=== PATIENT | female | born 1940 | race Caucasian/White ===

== ENCOUNTER 2017-10-04 17:14 | Inpatient (IN) | payer MEDICARE ==
[~2017-10-04] VITALS: Ht 157.5 cm; Wt 46.3 kg
[~2017-10-04 17:14] MED LIST: ASPI-1471 PO; BUPR-136 PO; CALC-770 PO; CEPH-13 PO; ESCI20TA8 PO; FLUT1DIS27 IH; HYDR-385 PO; LISI-353 PO; METF-410 PO; METO100T20 PO; MULT-19 PO; TRAM-420 PO
--- NOTE | 2017-10-04 17:41 | ER Report ---
History and Physical Time Seen By MD: 17:27 Hx. of Stated Complaint: PT HAS HAD A COUGH RECENTLY, DAUGHTER THOUGHT SHE LOOKED WORSE TODAY. HPI/ROS CHIEF COMPLAINT: Cough HISTORY OF PRESENT ILLNESS: 77-year-old female patient presents to emergency room with complaint of a cough. Patient has been sick for the past week, started off last Friday with runny nose and slight cough. It has progressed throughout the week. She is having to turn her oxygen up. She normally is on 2 L but currently on 4 L to stay at 90%. Patient denies having any fevers, chills , nausea, vomiting or diarrhea. Patient has not had much of an appetite. She has not taken any medication for this. Patient is a smoker and smokes typically 1-2 cigarettes a day, however she's not been able have a cigarette for the last 2 days. REVIEW OF SYSTEMS: Respiratory: As noted above Cardiovascular: No chest pain, no palpitations. Gastrointestinal: No vomiting, no abdominal pain. Musculoskeletal: No back pain. Allergies: Coded Allergies: No Known Drug Allergies (Unverified , 10/04/17) Home Meds Active Scripts Potassium Chloride (KLOR-CON M10) 10 Meq Tab.er.prt, 10 MEQ PO BID, #30 TAB.SR Prov:[facility] 10/04/17 Azithromycin 250 Mg Tab (AZITHROMYCIN 250 MG TAB) 250 Mg Tablet, 1 TAB PO QDAY, #4 TAB Take 2 tabs today and then 1 tab a day until gone. Prov:IMER DUMONT [facility] 10/04/17 Reported Medications Lisinopril (LISINOPRIL) 20 Mg Tablet, 20 MG PO QDAY, TAB 10/04/17 Fluticasone/Salmeterol (ADVAIR 100-50 DISKUS) 1 Each Disk.w.dev, 1 EACH IH QHS 01/12/16 Metoprolol Succinate (METOPROLOL SUCCINATE) 100 Mg Tab.er.24h, 1 TAB PO QHS, TAB 01/12/16 Calcium Carb/Vit D3/Minerals (CALCIUM +D & MINERALS CHEW TAB) 1 Each Tab.chew, 1 EACH PO DAILY, TAB.CHEW 01/12/16 Multivits-Min/Iron/FA/Lutein (Centrum Silver Women Tablet) 1 Each Tablet, 1 TAB PO DAILY 01/12/16 Bupropion Hcl (BUPROPION HCL SR) 150 Mg Tablet.er, 100 MG PO DAILY 01/12/16 Escitalopram Oxalate (ESCITALOPRAM OXALATE) 20 Mg Tablet, 20 MG PO QDAY 01/12/16 Aspirin (ASPIR 81) 81 Mg Tablet.dr, 81 MG PO QDAY, TAB 01/12/16 Discontinued Reported Medications Hydrocodone Bit/Acetaminophen (HYDROCODON-ACETAMINOPHEN 5-325) 1 Each Tablet, 1- 2 EACH PO Q4-6H Y for PAIN, #30 TAB 01/17/16 Cephalexin (KEFLEX) 500 Mg Capsule, 500 MG PO Q6H, #12 CAP 01/17/16 Lisinopril/Hydrochlorothiazide (LISINOPRIL-HCTZ 20-12.5 MG TAB) 1 Each Tablet, 1 EACH PO DAILY 01/12/16 Metformin Hcl (METFORMIN HCL) 500 Mg Tablet, 1 TAB PO BID, TAB 01/12/16 Past Medical/Surgical History Patient has a past medical history of CVA, dementia, hypertension, emphysema, diarrhea, fractures, diabetes, anxiety. Patient denies any surgical history. Reviewed Nurses Notes: Yes Hx Smoking: Yes (6 cigs/day for 55 yrs) Smoking Status: Current: Every Day Smoker Hx Substance Use Disorder: No Hx Alcohol Use: No Constitutional Vital Sign - Last 24 Hours 10/04/17 10/04/17 10/04/17 10/04/17 17:23 17:44 18:19 18:24 Temp 97.8 Pulse 71 67 Resp 22 19 B/P (MAP) 147/72 143/67 (92) Pulse Ox 75 100 O2 Delivery Nasal Cannula O2 Flow Rate 5.0 10/04/17 10/04/17 10/04/17 10/04/17 18:30 18:39 18:54 19:00 Pulse 68 63 Resp 32 29 B/P (MAP) 158/85 (109) 143/71 (95) Pulse Ox 97 100 10/04/17 10/04/17 10/04/17 10/04/17 19:09 19:24 19:30 19:39 Pulse 66 65 62 Resp 31 32 28 B/P (MAP) 141/68 (92) Pulse Ox 93 91 91 10/04/17 10/04/17 10/04/17 10/04/17 19:54 20:00 20:09 20:14 Pulse 68 66 70 Resp 34 33 20 B/P (MAP) 140/71 (94) Pulse Ox 93 93 91 10/04/17 10/04/17 10/04/17 10/04/17 20:24 20:29 20:30 20:44 Pulse 70 67 Resp 30 32 B/P (MAP) 154/64 (94) 153/77 (102) Pulse Ox 96 96 10/04/17 10/04/17 20:59 21:00 Pulse 65 Resp 24 B/P (MAP) 144/72 (96) Pulse Ox 95 Intake and Output 10/04/17 10/04/17 10/05/17 15:00 23:00 07:00 Intake Total 350 ml Balance 350 ml Physical Exam General Appearance: The patient is alert, has no immediate need for airway protection and no current signs of toxicity. Respiratory: Chest is non tender, lungs are coarse to auscultation in bilateral lower lobes, expiratory rhonchi in bilateral upper lobes. Cardiac: regular rate and rhythm Gastrointestinal: Abdomen is soft and non tender, no masses, bowel sounds normal. Musculoskeletal: Neck: Neck is supple and non tender. Extremities have full range of motion and are non tender. Skin: No rashes or lesions. DIFFERENTIAL DIAGNOSIS: After history and physical exam differential diagnosis was considered for shortness of breath including but not limited to pulmonary infectious process, COPD, asthma, pulmonary embolus and congestive heart failure. Medical Decision Making Data Points Result Diagram: 10/04/17 1738 10/04/17 1738 Laboratory Hematology Test 10/04/17 17:31 10/04/17 17:38 10/04/17 21:31 Influenza Virus Type A (PCR) Negative (NEGATIVE) Influenza Virus Type B (PCR) Negative (NEGATIVE) Red Blood Count 3.57 M/uL (4.17-5.56) Mean Corpuscular Volume 91.1 fL (80.0-96.0) Mean Corpuscular Hemoglobin 30.7 pg (26.0-33.0) Mean Corpuscular Hemoglobin Concent 33.7 g/dL (32.0-36.0) Red Cell Distribution Width 14.1 % (11.5-14.5) Mean Platelet Volume 7.6 fL (7.2-11.1) Neutrophils (%) (Auto) 73.2 % (39.4-72.5) Lymphocytes (%) (Auto) 14.9 % (17.6-49.6) Monocytes (%) (Auto) 11.2 % (4.1-12.4) Eosinophils (%) (Auto) 0.3 % (0.4-6.7) Basophils (%) (Auto) 0.4 % (0.3-1.4) Nucleated RBC Relative Count (auto) 0.0 /100WBC Neutrophils # (Auto) 2.9 K/uL (2.0-7.4) Lymphocytes # (Auto) 0.6 K/uL (1.3-3.6) Monocytes # (Auto) 0.4 K/uL (0.3-1.0) Eosinophils # (Auto) 0.0 K/uL (0.0-0.5) Basophils # (Auto) 0.0 K/uL (0.0-0.1) Nucleated RBC Absolute Count (auto) 0.00 K/uL Sodium Level 140 mmol/L (137-145) Potassium Level 2.7 mmol/L (3.5-5.0) Chloride Level 96 mmol/L (98-107) Carbon Dioxide Level 33 mmol/L (22-31) Blood Urea Nitrogen 16 mg/dl (7-18) Creatinine 1.10 mg/dl (0.52-1.04) Glomerular Filtration Rate Calc 48.2 Random Glucose 141 mg/dl (75-110) Calcium Level 8.2 mg/dl (8.4-10.2) Total Bilirubin 0.3 mg/dl (0.2-1.3) Aspartate Amino Transf (AST/SGOT) 52 U/L (0-35) Alanine Aminotransferase (ALT/SGPT) 44 U/L (0-56) Alkaline Phosphatase 65 U/L (0-126) B-Type Natriuretic Peptide 401 pg/ml (0-100) Total Protein 6.4 gm/dl (6.3-8.2) Albumin 3.2 g/dl (3.5-5.0) Troponin I 0.058 ng/ml Chemistry Test 10/04/17 17:31 3 17:38 10/04/17 21:31 Influenza Virus Type A (PCR) Negative (NEGATIVE) Influenza Virus Type B (PCR) Negative (NEGATIVE) White Blood Count 3.9 k/uL (4.5-11.0) Red Blood Count 3.57 M/uL (4.17-5.56) Hemoglobin 11.0 g/dL (12.0-16.0) Hematocrit 32.5 % (34.0-47.0) Mean Corpuscular Volume 91.1 fL (80.0-96.0) Mean Corpuscular Hemoglobin 30.7 pg (26.0-33.0) Mean Corpuscular Hemoglobin Concent 33.7 g/dL (32.0-36.0) Red Cell Distribution Width 14.1 % (11.5-14.5) Platelet Count 164 K/uL (150-450) Mean Platelet Volume 7.6 fL (7.2-11.1) Neutrophils (%) (Auto) 73.2 % (39.4-72.5) Lymphocytes (%) (Auto) 14.9 % (17.6-49.6) Monocytes (%) (Auto) 11.2 % (4.1-12.4) Eosinophils (%) (Auto) 0.3 % (0.4-6.7) Basophils (%) (Auto) 0.4 % (0.3-1.4) Nucleated RBC Relative Count (auto) 0.0 /100WBC Neutrophils # (Auto) 2.9 K/uL (2.0-7.4) Lymphocytes # (Auto) 0.6 K/uL (1.3-3.6) Monocytes # (Auto) 0.4 K/uL (0.3-1.0) Eosinophils # (Auto) 0.0 K/uL (0.0-0.5) Basophils # (Auto) 0.0 K/uL (0.0-0.1) Nucleated RBC Absolute Count (auto) 0.00 K/uL Glomerular Filtration Rate Calc 48.2 Calcium Level 8.2 mg/dl (8.4-10.2) Total Bilirubin 0.3 mg/dl (0.2-1.3) Aspartate Amino Transf (AST/SGOT) 52 U/L (0-35) Alanine Aminotransferase (ALT/SGPT) 44 U/L (0-56) Alkaline Phosphatase 65 U/L (0-126) B-Type Natriuretic Peptide 401 pg/ml (0-100) Total Protein 6.4 gm/dl (6.3-8.2) Albumin 3.2 g/dl (3.5-5.0) Troponin I 0.058 ng/ml EKG/Imaging EKG Interpretation 12 lead EKG: Rhythm: normal sinus rhythm Glendo: normal QRS: Right bundle branch block ST segments: normal 12 lead EKG done at 2033: Rhythm: normal sinus rhythm Glendo: normal QRS: Right bundle branch block ST segments: normal No obvious change from EKG done at 1733 Imaging EXAMINATION: Chest 2 Views HISTORY: Cough and shortness of breath. COMPARISON: 08/31/2012. FINDINGS: The lungs are hyperinflated with emphysematous change and mild chronic interstitial changes. There is some linear opacity in the right upper lobe anteriorly, likely subsegmental atelectasis or scarring. No suspicious focal consolidation. No pleural effusion or pneumothorax. Normal cardiomediastinal silhouette, with normal heart size and pulmonary vascularity. No acute osseous findings in the chest. Osteopenia. IMPRESSION: 1. Hyperinflation with chronic changes of COPD. 2. Mild linear density in the anterior right upper lobe, likely subsegmental atelectasis or scarring. No suspicious focal consolidation. Report Dictated By: Arnie Collazo MD at 10/04/2017 6:45 PM Report E-Signed By: Arnie Collazo MD at 10/04/2017 6:47 PM EXAMINATION: CTA of the chest with IV contrast HISTORY: Hypoxia. TECHNIQUE: Pulmonary embolus protocol - Thin axial CT images of the chest were obtained with IV contrast during maximal pulmonary arterial opacification. Reconstruction of the source data includes multiplanar 2D coronal and sagittal reconstructed images, and 3D coronal and sagittal MIP images. Distribution Collection Operator images have been stored on PACS. One of the following dose optimization techniques was utilized in the performance of this exam: Automated exposure control; adjustment of the mA and/ or kV according to the patient's size; or use of an iterative reconstruction technique. Specific details can be referenced in the facility's radiology CT exam operational policy. Contrast: 75 mL of IV Isovue-370. COMPARISON: None. FINDINGS: Pulmonary arteries: The pulmonary arteries are well opacified, without suspicious filling defect. Heart, aorta, and great vessels: Normal caliber thoracic aorta, without aneurysm or dissection. Normal heart size. No pericardial effusion. Normal heart size. No pericardial effusion. Lungs and pleura: Moderate emphysematous changes throughout the lungs. There is chronic appearing atelectasis of the right middle lobe with mild traction bronchiectasis. Mild diffuse bronchial wall thickening. There are a few tree-in- bud type opacities in the right lung base, suggesting small airways disease. No other focal consolidation. No pleural effusion or pneumothorax. Mediastinum and boris: Small hiatal hernia. Visualized upper abdomen: Cholelithiasis. Bilateral renal cysts. Chest wall: Negative. Bones: No acute osseous findings. IMPRESSION: 1. No evidence of pulmonary embolism. 2. Moderate pulmonary emphysema. 3. Chronic appearing atelectasis of the right middle lobe with mild bronchiectasis. 4. Mild scattered tree-in-bud type opacities in the right lower lobe, compatible with an infectious or inflammatory small airways disease. Mild diffuse bronchial wall thickening may be compatible with acute or chronic bronchitis. 5. Cholelithiasis. Report Dictated By: Arnie Collazo MD at 10/04/2017 9:57 PM Report E-Signed By: Arnie Collazo MD at 10/04/2017 10:03 PM ED Course/Re-evaluation ED Course Patient was admitted to an exam room, history and physical were obtained. Differential diagnoses were considered. On examination patient had coarse lung sounds on the right and expiratory rhonchi on the left. A CBC, CMP, troponin, EKG, chest x-ray, influenza screen were done. Patient had a white count 3.9, her potassium came back critically low at 2.7. Patient was started on a 20 mEq K rider. Troponin was indeterminate but the patient does have some renal failure I believe that is likely was causing that to be in the indeterminate range. EKG showed no acute findings. Chest x-ray was read as atelectasis in the right middle lobe. I do believe that the patient has a pneumonia in the right middle lobe. I did compare her x-ray with an x-ray from 2016 which did not show any infiltrates. I do not believe that the patient is requiring inpatient admission at this time. We will go ahead and treat her as an outpatient with azithromycin. We will have her follow-up with her primary care provider in the next week. I discussed this with the patient and her daughter and they verbalized understanding and agreement with plan. 10/04/2017 8:31:08 pm patient became very lightheaded, weak when she got up. Her oxygen saturations plummeted into the 70s. Patient was placed on 5 L and took several minutes to return to 90%. 10/04/2017 10:25:43 pm repeat troponin was improved, EKG showed no acute changes. CT pulmonary angiogram showed atelectasis in the right middle lobe, with "tree-in-bud" bronchial thickening. I did discuss the case with Dr. Driver, hospitalist. With patient living alone [place] I feel better with patient being admitted especially with her oxygen saturation plummeting as much as it did. Dr. Driver did agree to accept the patient for admission. Decision to Disposition Date: Oct 04, 2017 Decision to Disposition Time: 19:32 Depart Departure Latest Vital Signs Vital Signs Date Time Temp Pulse Resp B/P (MAP) Pulse Ox O2 Delivery O2 Flow Rate FiO2 10/04/17 21:00 144/72 (96) 10/04/17 20:59 65 24 95 10/04/17 17:44 5.0 10/04/17 17:23 97.8 Nasal Cannula Impression: Primary Impression: Bronchitis Additional Impressions: Hypokalemia Hypoxia Condition: Condition Unchanged Disposition: Admitted from ER Referrals: NANCY DON (PCP) New Scripts Potassium Chloride (KLOR-CON M10) 10 Meq Tab.er.prt 10 MEQ PO BID, #30 TAB.SR Prov: IMER DUMONT 10/04/17 Azithromycin 250 Mg Tab (AZITHROMYCIN 250 MG TAB) 250 Mg Tablet 1 TAB PO QDAY, #4 TAB Take 2 tabs today and then 1 tab a day until gone. Prov: IMER DUMONT 10/04/17 Patient Instructions: Community Acquired Pneumonia (ED) Additional Instructions: Increase fluid intake. Get plenty of rest. Follow up with your primary care provider in the next week, have your potassium checked. Take Tylenol or Ibuprofen as needed for fevers or chills. Return to the ER if condition worsens. Problem Qualifiers IMER DUMONT Oct 04, 2017 17:41
[2017-10-04] MEDS ORDERED: LISI20TA29 PO (17:51)
[2017-10-04 17:52] LABS: PLATELET COUNT, AUTOMATED 164 K/uL (150-450)
[2017-10-04] MEDS ORDERED: KCL (*) 20 MEQ/100 ML PREMIX 100 ML IV ONE (18:10)
--- NOTE | 2017-10-04 18:10 | EKG ---
FACILITY: [facility] PATIENT NAME: FAMILIA MESA : [id number] MR: [id number] V: [id number] EXAM DATE: ORDERING PHYSICIAN: IMER DUMONT TECHNOLOGIST: MANGO Morgan Reason : SOB Blood Pressure : / mmHG Vent. 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 (cited on or before 10-JAN-2016) Electrical interference precludes strict reading. When compared with ECG of 10-JAN-2016 12:29, No significant change was found Confirmed by PARISH MERRILL ([id number]) on 10/05/2017 7:18:40 PM Referred By: Confirmed By:PARISH MERRILL
[2017-10-04] MEDS ORDERED: NS(*) 0.9% 500 ML BAG 500 ML IV ONE (18:15)
--- NOTE | 2017-10-04 18:51 | RADIOLOGY IMAGING REPORT ---
[place] [facility] [place] Rosaamria Jo : 1940 MR: [id number] V: [id number] EXAM DATE: ORDERING PHYSICIAN: IMER DUMONT TECHNOLOGIST: Location: [facility] - [place] Patient: Rosamaria Jo : 1940 Visit/Account:[id number] Date of Sevice: 10/04/2017 EXAMINATION: Chest 2 Views HISTORY: Cough and shortness of breath. COMPARISON: 08/31/2012. FINDINGS: The lungs are hyperinflated with emphysematous change and mild chronic interstitial changes. There is some linear opacity in the right upper lobe anteriorly, likely subsegmental atelectasis or scarring. No suspicious focal consolidation. No pleural effusion or pneumothorax. Normal cardiomediastinal silhouette, with normal heart size and pulmonary vascularity. No acute osseous findings in the chest. Osteopenia. IMPRESSION: 1. Hyperinflation with chronic changes of COPD. 2. Mild linear density in the anterior right upper lobe, likely subsegmental atelectasis or scarring. No suspicious focal consolidation. Report Dictated By: Arnie Collazo MD at 10/04/2017 6:45 PM Report E-Signed By: Arnie Collazo MD at 10/04/2017 6:47 PM WSN:[id number]
[2017-10-04] MEDS ORDERED: AZITHROMYCIN 250 MG TAB PO ONE (19:30)
[2017-10-04] MEDS ORDERED: AZIT-18 PO (19:34)
[2017-10-04] MEDS ORDERED: POTA-30 PO (19:34)
[2017-10-04] MEDS ORDERED: IOPAMIDOL 76% 75 ML INFUS BTL 75 ML ONE (20:42)
[2017-10-04] MEDS ORDERED: NS 0.9% 150 ML BAG 150 ML ONE (20:42)
--- NOTE | 2017-10-04 20:42 | EKG ---
FACILITY: [facility] PATIENT NAME: FAMILIA MESA : [id number] MR: [id number] V: [id number] EXAM DATE: ORDERING PHYSICIAN: IMER DUMONT TECHNOLOGIST: LELA Test Reason : DYSPNEA Blood Pressure : / mmHG Vent. Rate : 066 BPM Atrial Rate : 066 BPM P-R Int : 164 ms QRS Dur : 128 ms QT Int : 476 ms P-R-T Axes : 087 101 067 degrees QTc Int : 499 ms Normal sinus rhythm Right bundle branch block Possible Inferior infarct (cited on or before 10-JAN-2016) When compared with ECG of 04-OCT-2017 17:33, No significant change was found Confirmed by PARISH MERRILL ([id number]) on 10/05/2017 7:21:39 PM Referred By: Confirmed By:PARISH MERRILL
--- NOTE | 2017-10-04 22:07 | RADIOLOGY IMAGING REPORT ---
FACILITY: [facility] - [place] PATIENT NAME: Rosamaria Jo : 1940 MR: [id number] V: [id number] EXAM DATE: ORDERING PHYSICIAN: IMER DUMONT TECHNOLOGIST: Location: [facility] - [place] Patient: Rosamaria Jo : 1940 Visit/Account:[id number] Date of Sevice: 10/04/2017 EXAMINATION: CTA of the chest with IV contrast HISTORY: Hypoxia. TECHNIQUE: Pulmonary embolus protocol - Thin axial CT images of the chest were obtained with IV con trast during maximal pulmonary arterial opacification. Reconstruction of the source data includes mul tiplanar 2D coronal and sagittal reconstructed images, and 3D coronal and sagittal MIP images. Repres entative images have been stored on PACS. One of the following dose optimization techniques was utilized in the performance of this exam: Autom ated exposure control; adjustment of the mA and/or kV according to the patient's size; or use of an i terative reconstruction technique. Specific details can be referenced in the facility's radiology C T exam operational policy. Contrast: 75 mL of IV Isovue-370. COMPARISON: None. FINDINGS: Pulmonary arteries: The pulmonary arteries are well opacified, without suspicious filling defect. Heart, aorta, and great vessels: Normal caliber thoracic aorta, without aneurysm or dissection. Norm al heart size. No pericardial effusion. Normal heart size. No pericardial effusion. Lungs and pleura: Moderate emphysematous changes throughout the lungs. There is chronic appearing at electasis of the right middle lobe with mild traction bronchiectasis. Mild diffuse bronchial wall thi ckening. There are a few tree-in-bud type opacities in the right lung base, suggesting small airways disease. No other focal consolidation. No pleural effusion or pneumothorax. Mediastinum and boris: Small hiatal hernia. Visualized upper abdomen: Cholelithiasis. Bilateral renal cysts. Chest wall: Negative. Bones: No acute osseous findings. IMPRESSION: 1. No evidence of pulmonary embolism. 2. Moderate pulmonary emphysema. 3. Chronic appearing atelectasis of the right middle lobe with mild bronchiectasis. 4. Mild scattered tree-in-bud type opacities in the right lower lobe, compatible with an infectious o r inflammatory small airways disease. Mild diffuse bronchial wall thickening may be compatible with a cute or chronic bronchitis. 5. Cholelithiasis. Report Dictated By: Arnie Collazo MD at 10/04/2017 9:57 PM Report E-Signed By: Arnie Collazo MD at 10/04/2017 10:03 PM WSN:[id number]
[2017-10-04 23:59] VITALS: BP 157/85
[2017-10-05] MEDS ORDERED: INFLUENZA VIRUS VAC 0.5 ML SYR IM ONLY ONE (00:10)
--- NOTE | 2017-10-05 00:20 | History & Physical ---
History of Present Illness Chief Complaint Cough History of Present Illness This patient presented to the emergency room with reports of cough or shortness of breath. She denies any fever or chills. History Problems: (1) Essential hypertension (2) Dementia (3) Tremor (4) Emphysema, unspecified Home Meds Active Scripts Potassium Chloride (KLOR-CON M10) 10 Meq Tab.er.prt, 10 MEQ PO BID, #30 TAB.SR Prov:IMER DUMONT [facility] 10/04/17 Azithromycin 250 Mg Tab (AZITHROMYCIN 250 MG TAB) 250 Mg Tablet, 1 TAB PO QDAY, #4 TAB Take 2 tabs today and then 1 tab a day until gone. Prov:IMER DUMONT [facility] 10/04/17 Reported Medications Lisinopril (LISINOPRIL) 20 Mg Tablet, 20 MG PO QDAY, TAB 10/04/17 Fluticasone/Salmeterol (ADVAIR 100-50 DISKUS) 1 Each Disk.w.dev, 1 EACH IH QHS 01/12/16 Metoprolol Succinate (METOPROLOL SUCCINATE) 100 Mg Tab.er.24h, 1 TAB PO QHS, TAB 01/12/16 Calcium Carb/Vit D3/Minerals (CALCIUM +D & MINERALS CHEW TAB) 1 Each Tab.chew, 1 EACH PO DAILY, TAB.CHEW 01/12/16 Multivits-Min/Iron/FA/Lutein (Centrum Silver Women Tablet) 1 Each Tablet, 1 TAB PO DAILY 01/12/16 Bupropion Hcl (BUPROPION HCL SR) 150 Mg Tablet.er, 100 MG PO DAILY 01/12/16 Escitalopram Oxalate (ESCITALOPRAM OXALATE) 20 Mg Tablet, 20 MG PO QDAY 01/12/16 Aspirin (ASPIR 81) 81 Mg Tablet.dr, 81 MG PO QDAY, TAB 01/12/16 Discontinued Reported Medications Hydrocodone Bit/Acetaminophen (HYDROCODON-ACETAMINOPHEN 5-325) 1 Each Tablet, 1- 2 EACH PO Q4-6H Y for PAIN, #30 TAB 01/17/16 Cephalexin (KEFLEX) 500 Mg Capsule, 500 MG PO Q6H, #12 CAP 01/17/16 Lisinopril/Hydrochlorothiazide (LISINOPRIL-HCTZ 20-12.5 MG TAB) 1 Each Tablet, 1 EACH PO DAILY 01/12/16 Metformin Hcl (METFORMIN HCL) 500 Mg Tablet, 1 TAB PO BID, TAB 01/12/16 Allergies: Coded Allergies: No Known Drug Allergies (Unverified , 10/04/17) Hx Smoking: Yes (4 cig/ day ) Smoking Status: Current: Every Day Smoker Caffeine Intake: Coffee Caffeine/Cups Per Day: 1 Hx Alcohol Use: No Hx Substance Use Disorder: No Social Drug Use: Never Review of Systems All Systems Reviewed/Normal: Yes, Except as Noted Respiratory: Shortness of Breath, Cough Exam Vital Signs Vital Signs Date Time Temp Pulse Resp B/P (MAP) Pulse Ox O2 Delivery O2 Flow Rate FiO2 10/04/17 23:59 98.0 72 30 157/85 (109) 91 Nasal Cannula 6.0 Neuro: Other (Resting tremor) Eyes: PERRLA Cardiovascular: Regular Rate and Rhythm Respiratory: Other (Bilateral rhonchi) GI: Abd Soft and Non-Tender Extremities: No Edema Integumentary: No Cyanosis Medical Decision Making Data Points Result Diagram: 10/04/17 1738 10/04/17 1738 EKG / Imaging Imaging Chest x-ray and CT scan reviewed. Assessment and Plan Problems: (1) COPD exacerbation Assessment & Plan: She did present with cough and shortness of breath. Her chest x-ray showed atelectasis, but no definitive infiltrate. Her CT scan showed findings consistent with bronchitis. She has been started on empiric treatment with nebulizers, corticosteroids, and ceftriaxone. (2) Emphysema, unspecified Assessment & Plan: She is on chronic treatment with Advair. (3) Hypokalemia Status: Acute Assessment & Plan: She did receive potassium in the emergency department. A repeat level is ordered for the morning. (4) Essential hypertension Assessment & Plan: She is on chronic treatment with lisinopril and metoprolol. (5) Depression Assessment & Plan: She is on chronic treatment with bupropion and Lexapro. Venous Thromboembolism Antithrombotics Is Pt On Any Antithrombotics?: No Exam Sepsis Risk: No Definite Risk PAZ SOTO DO Oct 05, 2017 00:20
[2017-10-05] MEDS: methylPREDNIS SUCC 125 MG/2ML IVP SCH ×4 (00:40→17:16)
[2017-10-05] MEDS: cefTRIAXone 1 GM VIAL IVP SCH (00:40)
[2017-10-05] MEDS: ALBUTEROL/IPRATROPIUM 3 ML NEB NEB SCH ×5 (00:45→18:55)
[2017-10-05 03:21] VITALS: BP 151/74
[2017-10-05 06:46] VITALS: BP 120/71
[2017-10-05] MEDS: ESCITALOPRAM OXALATE 10 MG TAB PO SCH (08:28)
[2017-10-05] MEDS: LISINOPRIL 20 MG TAB PO SCH (08:28)
[2017-10-05] MEDS: POTASSIUM CHL 10 MEQ TABCR PO SCH ×2 (08:28→17:16)
[2017-10-05 08:54] VITALS: Ht 157.5 cm; Wt 46.3 kg
[2017-10-05] MEDS: buPROPion SR 100 MG TABSR PO SCH (09:06)
[2017-10-05 11:01] VITALS: BP 146/88
[2017-10-05] MEDS: ALBUTEROL 2.5 MG/3 ML NEB NEB PRN (11:19)
[2017-10-05 13:29] LABS: PLATELET COUNT, AUTOMATED 149 K/uL (150-450)
[2017-10-05] MEDS ORDERED: PANTOPRAZOLE SOD 40 MG TABEC PO ONE (14:05)
[2017-10-05 15:07] VITALS: BP 156/70
--- NOTE | 2017-10-05 15:41 | Hospitalist Progress Note ---
Subjective Progress Notes Subjective The patient states she is still short of breath at times. Nursing staff notes she was wheezing prior to a recent neb treatment. She also has been having abdominal pain for the past few weeks. For this reason she has not eaten well and has lost weight. She says cold liquids make her pain worse. She tolerates warm liquids better. Physical Exam Vital Signs Date Time Temp Pulse Resp B/P (MAP) Pulse Ox O2 Delivery O2 Flow Rate FiO2 10/05/17 15:07 97.8 78 12 156/70 (98) 95 Nasal Cannula 5.0 Intake and Output 10/06/17 07:00 Intake Total 0 ml Balance 0 ml Intake Oral 0 ml # Voids 1 General Appearance: Alert, Awake, No Acute Distress Neuro: Other (Pill rolling tremor, right hand.) Eyes: PERRLA Cardiovascular: Regular Rate and Rhythm Respiratory: Other (Markedly decreased BS posteriorly. No rales, rhonchi or wheezing.) GI: Other (Slightly distended, nontender.) Extremities: Warm, Perfused Psych: Appropriate Mood & Affect Result Diagram: 10/05/17 1323 10/05/17 1323 Assessment and Plan Problems: (1) COPD exacerbation Assessment & Plan: She did present with cough and shortness of breath. Her chest x-ray showed atelectasis, but no definitive infiltrate. Her CT scan showed findings consistent with bronchitis. She has been started on empiric treatment with nebulizers, corticosteroids, and ceftriaxone. (2) Emphysema, unspecified Assessment & Plan: She is on chronic treatment with Advair. (3) Hypokalemia Status: Acute Assessment & Plan: She did receive potassium in the emergency department. A repeat level is 3.5 today. (4) Essential hypertension Assessment & Plan: She is on chronic treatment with lisinopril and metoprolol. (5) Depression Assessment & Plan: She is on chronic treatment with bupropion and Lexapro. (6) Pancytopenia Status: Chronic Assessment & Plan: B 12 and folate levels ordered. (7) Abdominal pain Status: Chronic Assessment & Plan: With weight loss. Will start Protonix now, but she will need further evaluation once her breathing has improved. Time Spent on Plan of Care: < 30 min Exam Sepsis Risk: No Definite Risk RUDDY DAVID MD Oct 05, 2017 15:41
[2017-10-05 19:10] VITALS: BP 150/70
[2017-10-05] MEDS: SALMETEROL/FLUTIC 100/50 1 INH INH SCH (20:40)
[2017-10-05] MEDS: METOPROLOL SUCC XL 50 MG TABCR 50 MG TAB.ER.24H PO SCH (20:45)
[2017-10-06 00:30] VITALS: BP 160/90
[2017-10-06] MEDS: methylPREDNIS SUCC 125 MG/2ML IVP SCH ×4 (00:34→17:24)
[2017-10-06] MEDS: cefTRIAXone 1 GM VIAL IVP SCH (00:35)
[2017-10-06 04:21] VITALS: BP 164/80
[2017-10-06] MEDS: ALBUTEROL/IPRATROPIUM 3 ML NEB NEB SCH ×4 (05:32→17:17)
[2017-10-06 06:25] LABS: PLATELET COUNT, AUTOMATED 169 K/uL (150-450)
[2017-10-06 08:06] VITALS: BP 168/82
[2017-10-06] MEDS: LISINOPRIL 20 MG TAB PO SCH (10:24)
[2017-10-06] MEDS: PANTOPRAZOLE SOD 40 MG TABEC PO SCH (10:24)
[2017-10-06] MEDS: ESCITALOPRAM OXALATE 10 MG TAB PO SCH (10:24)
[2017-10-06] MEDS: POTASSIUM CHL 10 MEQ TABCR PO SCH ×2 (10:25→17:23)
[2017-10-06] MEDS: buPROPion SR 100 MG TABSR PO SCH (10:25)
[2017-10-06 11:33] VITALS: BP 166/84
[2017-10-06] MEDS ORDERED: NS(*) 0.9% 250 ML BAG 250 ML ONE (11:41)
[2017-10-06] MEDS: DOXYCYCLINE HYCL 100 MG VIAL 100 MG in NS(*) 0.9% 250 ML BAG 250 ML IV SCH ×2 (11:44→22:51)
--- NOTE | 2017-10-06 13:12 | Hospitalist Progress Note ---
Subjective Progress Notes Subjective She reports "about the same". Physical Exam Vital Signs Date Time Temp Pulse Resp B/P (MAP) Pulse Ox O2 Delivery O2 Flow Rate FiO2 10/06/17 11:33 98.0 61 16 166/84 (111) 100 Nasal Cannula 5.0 Intake and Output 10/07/17 07:00 Intake Total 490 ml Balance 490 ml Intake Oral 240 ml IV Total 250 ml General Appearance: Alert, Awake Cardiovascular: Regular Rate and Rhythm Respiratory: Other (decreased breath sounds bilaterally/no rales or wheezes noted) Chest: No Tenderness GI: Other (soft/thin/BS present/no masses or HSM noted) Extremities: Warm, Perfused Result Diagram: 10/06/1754810/06/17548 Assessment and Plan Problems: (1) COPD exacerbation Assessment & Plan: She did present with cough and shortness of breath. Her chest x-ray showed atelectasis. Her CT scan showed findings consistent with bronchitis and posibly mild RML bronchiectasis. She has been started on empiric treatment with nebulizers, corticosteroids, doxycycline and ceftriaxone. Minimal improvements thus far. (2) Emphysema, unspecified Assessment & Plan: She is on chronic treatment with Advair. (3) Hypokalemia Status: Acute Assessment & Plan: Resolved with supplementation. (4) Essential hypertension Assessment & Plan: She is on chronic treatment with lisinopril and metoprolol. (5) Depression Assessment & Plan: She is on chronic treatment with bupropion and Lexapro. (6) Pancytopenia Status: Chronic Assessment & Plan: Somewhat improved. B12 and folate levels are pending. (7) Abdominal pain Status: Chronic Assessment & Plan: With weight loss. Will set her up for CT scan of abdomen and pelvis. She is now on Protonix. Further evaluation/treatment pending results. Exam Sepsis Risk: No Definite Risk FITZ DAVID MD Oct 06, 2017 13:12
[2017-10-06 15:03] VITALS: BP 176/88
[2017-10-06 18:37] VITALS: BP 128/88
[2017-10-06] MEDS: SALMETEROL/FLUTIC 100/50 1 INH INH SCH (20:57)
[2017-10-06] MEDS: METOPROLOL SUCC XL 50 MG TABCR 50 MG TAB.ER.24H PO SCH (21:06)
[2017-10-07] MEDS: methylPREDNIS SUCC 125 MG/2ML IVP SCH ×4 (00:06→17:25)
[2017-10-07] MEDS: cefTRIAXone 1 GM VIAL IVP SCH (00:19)
[2017-10-07 04:18] VITALS: BP 132/86
[2017-10-07] MEDS: ALBUTEROL/IPRATROPIUM 3 ML NEB NEB SCH ×4 (05:10→17:06)
[2017-10-07] MEDS ORDERED: IOPAMIDOL 76% 75 ML INFUS BTL 75 ML ONE (05:18)
[2017-10-07] MEDS ORDERED: DIATRIZOATE MEGL/DIATRIZOA SOD 367 MG/ML SOLN ONE (05:18)
[2017-10-07 08:20] LABS: PLATELET COUNT, AUTOMATED 206 K/uL (150-450)
[2017-10-07] MEDS: buPROPion SR 100 MG TABSR PO SCH (09:00)
[2017-10-07] MEDS: PANTOPRAZOLE SOD 40 MG TABEC PO SCH (09:00)
[2017-10-07] MEDS: ESCITALOPRAM OXALATE 10 MG TAB PO SCH (09:00)
[2017-10-07] MEDS: LISINOPRIL 20 MG TAB PO SCH (09:00)
[2017-10-07] MEDS: POTASSIUM CHL 10 MEQ TABCR PO SCH ×2 (09:00→17:25)
--- NOTE | 2017-10-07 10:09 | RADIOLOGY IMAGING REPORT ---
FACILITY: [facility] [place] PATIENT NAME: Rosamaria Jo : 1940 MR: [id number] V: [id number] EXAM DATE: ORDERING PHYSICIAN: FITZ DAVID TECHNOLOGIST: Location: [facility] Patient: Rosamaria Jo : 1940 Visit/Account:[id number] Date of Sevice: 10/07/2017 ABDOMEN/PELVIS W/WO CONTRAST HISTORY: abdominal pain/weight loss TECHNIQUE: Axial images acquired through the abdomen/pelvis both with and without IV contrast.. Jennifer nal and sagittal reformatting also performed. Dose Lowering Technique One of the following dose optimization techniques was utilized in the performance of this exam: Autom ated exposure control; adjustment of the mA and/or kV according to the patient's size; or use of an i terative reconstruction technique. Specific details can be referenced in the facility's radiology C T exam operational policy. CONTRAST: 75 mL Isovue-370 COMPARISON: CTA chest October 04, 2017 FINDINGS: Visualized lung bases: Emphysematous changes again seen throughout the lungs. Mild diffuse bronchia l wall thickening also again noted. The foun-fz-hxb-type opacifications in the right lung base appea r slightly increased. There are now new similar findings in the left lung base suggesting an acute i nfectious/inflammatory process. Hepatobiliary: There are large laminated gallstones within the gallbladder versus calcified gallblad genaro wall. There is no evidence of biliary ductal dilatation Spleen: Negative. Adrenals: There is a 1.6 cm hypoattenuating right adrenal mass. There are multiple adrenal masses o n the left largest measuring approximately 1.6 cm Pancreas: Pancreas appears atrophic. There are hypoattenuating changes in the head of the pancreas/ uncinate process which could represent a dilated pancreatic duct versus hypoattenuating mass Kidneys ureters and bladder: There are multiple bilateral renal cysts. There is motion artifact pres ent. There suggestion of cortical scarring in the lower pole of the right kidney is mild bladder wal l thickening although the bladder is decompressed Genitalia: Uterus is not seen and is either severely atrophic or surgically absent GI: Negative. Vessels/spaces/nodes: There are mild vascular calcifications present Bones/soft tissues: There are very mild spondylotic changes lumbar spine. There is a sclerotic lesi on in the left femoral head. This could represent bone islands although other lesions not excluded. There is a gentle levoconvex scoliosis of the thoracolumbar spine there are probable Tarlov cysts ri ght-sided the sacrum at S2 Additional findings: None pertinent. IMPRESSION: Emphysematous changes throughout the lungs. Also noted is mild diffuse bronchial wall thickening. Tree in bud type opacifications in the right lung base appears slightly increased when compared to th e prior CT from October 04, 2017. Similar findings are now seen in the left lung base suggesting an ac daniela infectious/inflammatory process. Large laminated gallstones within the gallbladder versus calcified gallbladder wall. This could be f urther evaluated with MR Bilateral hypoattenuating adrenal masses. These could be further evaluated with dedicated CT or MR t he adrenal glands Pancreas appears atrophic. There are hypoattenuating changes within the head of the pancreas/uncinat e process which could represent a dilated pancreatic duct versus hypoattenuating masses. This also c ould be further evaluated with MR with and without contrast There is a sclerotic lesion in the left femoral head which could represent a bone island although oth er lesions not excluded. Report Dictated By: Katie Rockwell MD at 10/07/2017 9:00 AM Report E-Signed By: Katie Rockwell MD at 10/07/2017 10:04 AM WSN:ROCÍO
[2017-10-07] MEDS: DOXYCYCLINE HYCL 100 MG VIAL 100 MG in NS(*) 0.9% 250 ML BAG 250 ML IV SCH ×2 (11:36→23:18)
[2017-10-07 11:39] VITALS: BP 135/85
--- NOTE | 2017-10-07 14:24 | Hospitalist Progress Note ---
Subjective Progress Notes Subjective The patient notes her breathing is a bit better today. Her abdominal pain may have "eased off a bit" as well. Physical Exam Vital Signs Date Time Temp Pulse Resp B/P (MAP) Pulse Ox O2 Delivery O2 Flow Rate FiO2 10/07/17 14:05 94 High-Flow Nasal Cannula 7.0 10/07/17 14:05 70 16 10/07/17 11:39 135/85 (102) 10/07/17 07:19 98.0 Intake and Output 10/08/17 07:00 Intake Total 240 ml Balance 240 ml Intake Oral 240 ml # Voids 1 # Bowel Movements 1 General Appearance: Alert, Awake, No Acute Distress Neuro: No Gross deficits Cardiovascular: Regular Rate and Rhythm Respiratory: Other (Markedly decreased BS throughout. No wheezing or rhonchi.) GI: Soft and Non-Tender Extremities: Warm, Perfused Psych: Appropriate Mood & Affect Result Diagram: 10/07/17 0808 10/07/17 0808 Assessment and Plan Problems: (1) COPD exacerbation Assessment & Plan: She did present with cough and shortness of breath. Her chest x-ray showed atelectasis. Her CT scan showed findings consistent with bronchitis and possibly mild RML bronchiectasis. She has been started on empiric treatment with nebulizers, corticosteroids, doxycycline and ceftriaxone. Minimal improvements thus far. (2) Emphysema, unspecified Assessment & Plan: She is on chronic treatment with Advair. (3) Hypokalemia Status: Acute Assessment & Plan: Resolved with supplementation. (4) Essential hypertension Assessment & Plan: She is on chronic treatment with lisinopril and metoprolol. (5) Depression Assessment & Plan: She is on chronic treatment with bupropion and Lexapro. (6) Pancytopenia Status: Chronic Assessment & Plan: Somewhat improved. B12 and folate levels are pending. (7) Abdominal pain Status: Chronic Assessment & Plan: With weight loss. CT scan of abdomen and pelvis shows abnormalities of the head of the pancreas (ducts), adrenal glands, and gallbladder. I talked with the radiologist who recommended an MRCP to better evaluate these issues. She is now on Protonix. Further evaluation/treatment pending results. Time Spent on Plan of Care: < 30 min Exam Sepsis Risk: No Definite Risk RDUDY DAVID MD Oct 07, 2017 14:24
[2017-10-07 16:06] VITALS: BP 150/86
[2017-10-07 19:34] VITALS: BP 173/90
[2017-10-07] MEDS: METOPROLOL SUCC XL 50 MG TABCR 50 MG TAB.ER.24H PO SCH (20:32)
[2017-10-07] MEDS: SALMETEROL/FLUTIC 100/50 1 INH INH SCH (21:00)
[2017-10-07 23:22] VITALS: BP 172/91
[2017-10-08] MEDS: cefTRIAXone 1 GM VIAL IVP SCH (01:13)
[2017-10-08] MEDS: ALBUTEROL/IPRATROPIUM 3 ML NEB NEB SCH ×4 (05:42→17:17)
[2017-10-08] MEDS: methylPREDNIS SUCC 125 MG/2ML IVP SCH ×2 (06:02)
[2017-10-08 06:34] LABS: PLATELET COUNT, AUTOMATED 189 K/uL (150-450)
[2017-10-08 08:13] VITALS: BP 153/86
[2017-10-08] MEDS ORDERED: NS 0.9% 20 ML SDV 40 ML ONE (10:18)
[2017-10-08] MEDS ORDERED: GADOBENATE 529MG/1ML 15ML VIAL IVP ONE (10:18)
--- NOTE | 2017-10-08 11:39 | Hospitalist Progress Note ---
Subjective Progress Notes Subjective This patient was admitted for COPD, but then started complaining of abdominal pain. Patient Complains of: Cardiovascular: No: Chest Pain Respiratory: No: Shortness of Breath Physical Exam Vital Signs Date Time Temp Pulse Resp B/P (MAP) Pulse Ox O2 Delivery O2 Flow Rate FiO2 10/08/17 09:20 73 16 10/08/17 09:13 90 High-Flow Nasal Cannula 3.0 10/08/17 08:13 98.2 153/86 (108) Cardiovascular: Regular Rate and Rhythm Respiratory: Clear to Auscultation GI: Soft and Non-Tender Result Diagram: 10/08/1751910/08/17519 CT abdomen/pelvis reviewed. Assessment and Plan Problems: (1) COPD exacerbation Assessment & Plan: She did present with cough and shortness of breath. Her CT scan showed findings consistent with bronchitis and possibly mild bronchiectasis. She has been started on empiric treatment with nebulizers, corticosteroids, doxycycline and ceftriaxone. Her respiratory symptoms have improved. We stopped her antibiotics and converted her to oral prednisone today. (2) Emphysema, unspecified Assessment & Plan: She is on chronic treatment with Advair. (3) Hypokalemia Status: Acute Assessment & Plan: Resolved with supplementation. (4) Essential hypertension Assessment & Plan: She is on chronic treatment with lisinopril and metoprolol. (5) Depression Assessment & Plan: She is on chronic treatment with bupropion and Lexapro. (6) Pancytopenia Status: Chronic Assessment & Plan: Her counts have been stable. (7) Abdominal pain Status: Chronic Assessment & Plan: A CT scan of abdomen and pelvis shows abnormalities of the head of the pancreas (ducts), adrenal glands, and gallbladder. She is having an MRCP performed today. Exam Sepsis Risk: No Definite Risk PAZ SOTO DO Oct 08, 2017 11:39
[2017-10-08 12:23] VITALS: BP 150/91
[2017-10-08] MEDS: LISINOPRIL 20 MG TAB PO SCH (12:24)
[2017-10-08] MEDS: buPROPion SR 100 MG TABSR PO SCH (12:24)
[2017-10-08] MEDS: POTASSIUM CHL 10 MEQ TABCR PO SCH ×2 (12:24→17:32)
[2017-10-08] MEDS: predniSONE 10 MG TAB PO SCH (12:25)
[2017-10-08] MEDS: PANTOPRAZOLE SOD 40 MG TABEC PO SCH (12:25)
[2017-10-08] MEDS: ESCITALOPRAM OXALATE 10 MG TAB PO SCH (12:25)
[2017-10-08 15:30] VITALS: BP 139/100
--- NOTE | 2017-10-08 15:54 | RADIOLOGY IMAGING REPORT ---
FACILITY: [facility] PATIENT NAME: Rosamaria Jo : 1940 MR: [id number] V: [id number] EXAM DATE: ORDERING PHYSICIAN: RUDDY DAVID TECHNOLOGIST: Location: [facility] [place] Patient: Rosamaria Jo : 1940 Visit/Account:[id number] Date of Sevice: 10/08/2017 MRI CHOLANGIOPANCREAT W/WO CON HISTORY: Abnormal adrenals, pancreas and gallbladder TECHNIQUE: Multiplanar multisequence magnetic resonance imaging of the abdomen with and without intr avenous contrast including magnetic resonance cholangiopancreatography (MRCP). CONTRAST: 10 COMPARISON: CT and pelvis October 07, 2017 Images are degraded due to patient motion FINDINGS: Visualized lung bases: Tree-in-bud opacification of the lower lungs are again seen although are demarcus r depicted on the prior CT. 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 In retrospect on the prior CTA of the chest from October 04, 2017 appears to be a small amount thrombus within this aneurysm Liver: Negative. Gallbladder: There are large gallstones within the gallbladder. The gallbladder wall does not appear to enhance abnormally within the limitations of this motion degraded study Bile ducts: Nondistended and unremarkable. Spleen: Negative. Adrenal glands: Bilateral adrenal masses again seen. There is signal dropout on the opposed phase im ages there for these likely represent adenomas. There is no restricted diffusion. Pancreas: No abnormal enhancement is identified within the pancreas however suggestion of an 8 mm cys tic structure in the junction of the head and the body although again not well characterized due to e xtensive motion artifact Kidneys: Multiple bilateral renal cysts Vessels/spaces/nodes: No bulky adenopathy or ascities. Visualized GI: Grossly unremarkable. Bones/soft tissues: Hemangiomas in the lower thoracic spine IMPRESSION: Tree-in-bud opacification of the lower lungs are again seen although better depicted on the prior CT. Study suggests an acute infectious/inflammatory process Large gallstones within the gallbladder although no abnormal enhancement of the gallbladder wall. Signal dropout on the opposed phase images of the adrenal masses suggest benign adenomas. There is suggestion of an 8 mm cystic structure at the junction of the head and body of the pancreas although areas not well seen as there is extensive motion artifact throughout the study Lung apex the left ventricle there is a 1.7 x 1.25 x 1.1 cm left ventricular aneurysm (much less like ly pseudoaneurysm) This appear to contain a small amount of thrombus on the prior CT of the chest from October 04, 2017. Large gallstones within the gallbladder although the gallbladder wall does not appear to enhance abno rmally. Study is however very limited due to extensive motion artifact Bilateral adrenal masses likely represent adenomas No abnormal enhancement is identified within the pancreas on this limited motion degraded study. The re is suggestion of an 8 mm cystic structure at the junction of head and body. Given the limitations due to motion artifact this could be further evaluated with ultrasound or short-term interval follow -up CT or MR. Report Dictated By: Katie Rockwell MD at 10/08/2017 2:46 PM Report E-Signed By: Katie Rockwell MD at 10/08/2017 3:49 PM ALVINN:AMICIVN
[2017-10-08 19:40] VITALS: BP 157/94
[2017-10-08] MEDS ORDERED: NS(*) 0.9% 500 ML BAG 500 ML ONE (20:39)
[2017-10-08] MEDS: METOPROLOL SUCC XL 50 MG TABCR 50 MG TAB.ER.24H PO SCH (20:39)
[2017-10-08] MEDS: SALMETEROL/FLUTIC 100/50 1 INH INH SCH (21:10)
[2017-10-09 03:30] VITALS: BP 178/98
[2017-10-09] MEDS: ALBUTEROL/IPRATROPIUM 3 ML NEB NEB SCH ×4 (05:46→16:58)
[2017-10-09 07:00] VITALS: BP 172/86
[2017-10-09] MEDS: buPROPion SR 100 MG TABSR PO SCH (08:58)
[2017-10-09] MEDS: LISINOPRIL 20 MG TAB PO SCH (08:58)
[2017-10-09] MEDS: POTASSIUM CHL 10 MEQ TABCR PO SCH ×2 (08:58→17:18)
[2017-10-09] MEDS: predniSONE 10 MG TAB PO SCH (08:58)
[2017-10-09] MEDS: ESCITALOPRAM OXALATE 10 MG TAB PO SCH (08:58)
[2017-10-09] MEDS: PANTOPRAZOLE SOD 40 MG TABEC PO SCH (08:58)
[2017-10-09 11:10] VITALS: BP 150/92
[2017-10-09] MEDS ORDERED: LIDOCAINE 2% VISC SLN 15ML UDC PO ONE (11:15)
[2017-10-09] MEDS ORDERED: MAG HYD/AL HYD/SIMETH 30ML UDC PO ONE (11:15)
--- NOTE | 2017-10-09 13:42 | Hospitalist Progress Note ---
Subjective Progress Notes Subjective Some abdominal discomfort after breakfast this morning. No SOB. Physical Exam Vital Signs Date Time Temp Pulse Resp B/P (MAP) Pulse Ox O2 Delivery O2 Flow Rate FiO2 10/09/17 11:10 98.1 73 20 150/92 (111) 91 High-Flow Nasal Cannula 8.0 Intake and Output 10/10/17 07:00 # Voids 1 # Bowel Movements 1 General Appearance: Alert, Awake, No Acute Distress Respiratory: Clear to Auscultation GI: Soft and Non-Tender Result Diagram: 10/08/1751910/08/17519 Assessment and Plan Problems: (1) COPD exacerbation Assessment & Plan: She did present with cough and shortness of breath. Her CT scan showed findings consistent with bronchitis and possibly mild bronchiectasis. She had been started on empiric treatment with nebulizers, corticosteroids, doxycycline and ceftriaxone. Her respiratory symptoms have improved. We stopped her antibiotics and converted her to oral prednisone today. (2) Abdominal pain Status: Chronic Assessment & Plan: She has had intermittent left sided abdominal pain that seems to worsen after meals and/or cold drinks. A CT scan of abdomen and pelvis shows abnormalities of the head of the pancreas (ducts), adrenal glands, and gallbladder. MRCP showed large gallstones, normal gallbladder, suggestion of an 8mm cystic structure at the junction of the head and body of the pancreas , bilateral adrenal masses that are likely adenomas. I will discuss with Dr. Robertson. Will try a viscous lidocaine and Maalox for the abdominal pain and check a H. pylori ab. The patient is on Protonix since 10/06. (3) Ventricular aneurysm Status: Acute Assessment & Plan: Seen on MRCP along the apex of the left ventricle and concern for thrombus within it by the abdominal CT. Echo with contrast pending. (4) Emphysema, unspecified Assessment & Plan: She is on chronic treatment with Advair. (5) Hypokalemia Status: Acute Assessment & Plan: Resolved with supplementation. (6) Essential hypertension Assessment & Plan: She is on chronic treatment with lisinopril and metoprolol. (7) Depression Assessment & Plan: She is on chronic treatment with bupropion and Lexapro. (8) Pancytopenia Status: Chronic Assessment & Plan: WBC and platelet counts now normal. Hgb stable. Exam Sepsis Risk: No Definite Risk ANDIE MORRIS MD Oct 09, 2017 13:42
[2017-10-09 15:48] VITALS: BP 162/100
[2017-10-09 19:30] VITALS: BP 166/93
[2017-10-09] MEDS: METOPROLOL SUCC XL 50 MG TABCR 50 MG TAB.ER.24H PO SCH (20:26)
[2017-10-10 02:02] VITALS: BP 173/101
[2017-10-10] MEDS: SALMETEROL/FLUTIC 100/50 1 INH INH SCH ×2 (05:33→20:56)
[2017-10-10] MEDS: ALBUTEROL/IPRATROPIUM 3 ML NEB NEB SCH ×4 (05:33→17:03)
[2017-10-10 06:10] LABS: PLATELET COUNT, AUTOMATED 215 K/uL (150-450)
[2017-10-10 07:52] VITALS: BP 167/95
[2017-10-10] MEDS: buPROPion SR 100 MG TABSR PO SCH (08:49)
[2017-10-10] MEDS: PANTOPRAZOLE SOD 40 MG TABEC PO SCH (08:49)
[2017-10-10] MEDS: ESCITALOPRAM OXALATE 10 MG TAB PO SCH (08:49)
[2017-10-10] MEDS: LISINOPRIL 20 MG TAB PO SCH (08:49)
[2017-10-10] MEDS: POTASSIUM CHL 10 MEQ TABCR PO SCH ×2 (08:49→16:52)
[2017-10-10] MEDS: predniSONE 10 MG TAB PO SCH (08:49)
[2017-10-10 10:41] VITALS: BP 165/102
--- NOTE | 2017-10-10 10:45 | SWALLOW EVALUATION ---
SPEECH THERAPY spray booth operator: Nathalie Fitzgerald MS, CCC-STITCHING MACHINE SETTER Type of Assessment: Dysphagia Evaluation Patient: Rosamaria Jo : 1940, 77 Evaluation Date: 10-10-17 BACKGROUND The patient is an 77 year old female admitted to [facility] with bronchitis. An ST swallow evaluation was ordered to further evaluate swallow structure and function d/t concerns with s/s of dysphagia and aspiration. PREVIOUS LEVEL OF FUNCTION: Primary Medical Diagnosis: Bronchitis, tremor Prior Level of Function: lives a home with spouse, independent Medical Complications/Past Medical History: See chart for details COGNITION/COMMUNICATION LOC / Participation: alert cooperative Follow instructions SPEECH Apraxia: Non-apraxic Dysarthric: Non-dysarthric Overall intelligibility: high VOICE Vocal Deficits: No Changes to vocal quality: denies DYSPHAGIA Dysphagia Risk Evaluation Protocol DREP: Water Swallow Test: Pass, Puree Swallow Test: Pass, Solids Swallow Test: Pass pt prefers chopped/bite size foods Dysphagia Severity Rating Scale: Severity Grouping: Dysphagia unlikely, Aspiration: unlikely Swallow Integrity: Dysphagia: unlikely, Aspiration: unlikely Sialorrhea: No Xerostomia: No Supplemental Oxygen Use: Yes. Nasal Cannula 2L Oxygen Saturation: Remains Stable liquid/food trials Oral Structure and Function: Within functional limits for speech and swallow. Pain with Swallow: Denies Respiratory/Swallow Coordination: Typically patterned (ie. exhale/swallow/ exhale) Oral Stage Oral Stage Dysphagia: No Self Feeds: Yes Comment: WNL Pharyngeal Stage Pharyngeal Stage Dysphagia: occasionally difficulty with solids. Manges with liquid wash and softer foods. Assistance Required: none Indication of acute aspiration witnessed or reported by patient, family or staff : No ST ASSESSMENT SUMMARY DYSPHAGIA Aspiration Risk: Low. No s/s of acute laryngeal penetration or aspiration. Dysphagia: No s/s of oral, pharyngeal, esophageal dysphagia Education provided for swallow precautions COGNITIVE: Largely intact. No formal cognitive assessment administered FUNCTIONAL COMMUNICATION: Intact. Patient has functional communication tasks for independence and safety. RECOMMENDATIONS 1. Diet Modification: JUSTIN, chopped/bites size solids 2 Pills: as tolerated 4. Supervision with meals/snacks: No 5. Pt denies need for further swallow intervention at this time. . Thank you for this referral. Nathalie Fitzgerald M.S., CCC-STITCHING MACHINE SETTER Speech Therapist ASAD
--- NOTE | 2017-10-10 12:30 | RADIOLOGY IMAGING REPORT ---
FACILITY: [facility] PATIENT NAME: FAMILIA MESA : [id number] MR: [id number] V: [id number] EXAM DATE: [id number] ORDERING PHYSICIAN: ANDIE MORRIS TECHNOLOGIST: Moshe Lim EXAMINATION:TWO-DIMENSIONAL ECHOCARDIOGRAPH REASON:History of Left Ventricular Aneurysm 2D Measurements (normal values in centimeters) LV endLV endRV endVent.LV PostAorticLeftPercent DiastolicSystolicDiastolicSeptumWallRootAtriumShortening (3.5-5.7)(0.9-2.6)(0.6-1.1)(0.6-1.1)(2.0-3.7)(1.9-4.0)(25-35%) [id number]% STROKE VOLUME: 43mL ESTIMATED EJECTION FRACTION: 54% PARASTERNAL LONG AXIS: Overall left ventricular function does appear to be normal and chamber sizes also appear to be normal. No wall motion abnormalities are noted. Mitral valve and aortic valve both appear to close normally. Color examination of the mitral valve though reveals an eccentric jet of mitral insufficiency directed toward the free wall of the left atrium. Color examination of the aortic valve was unremarkable. PARASTERNAL SHORT AXIS: Again overall left ventricular function does appear to be within normal ranges. Aortic valve is trileaflet in configuration and appears to open normally. A mild amount of tricuspid insufficiency is noted. APICAL FOUR AND TWO CHAMBER: Normal left ventricular ejection fraction. U aortic valve area and mitral valve area both measure within normal ranges at 1.8 and 1.4cm/2 respectively. The left atrial and right atrial volumes are measured within normal ranges at 24 and 13ml/mt2. The tricuspid regurgitation Vmax measured 2.87mt/2. Mild mitral annular calcification with flattening of the posterior leaf of the mitral valve. SUBCOSTAL VIEW: No pericardial effusion was noted. No atrioseptal or ventriculoseptal defects were appreciated. Definitive contrast was used. Small aneurismal the area is noted at the apex of the left ventricle measuring 2 x 1.7cm. Doppler examination of the mitral valve in diastole does reveal the A wave > E wave. IVC is normal in size. OVERALL IMPRESSION: 1. Normal left ventricular ejection fraction of 54% with a Grade 1 decrease in diastolic function. 2. Normal chamber sizes. 3. No wall motion abnormalities were noted. 4. There is a small ventricular aneurysm at the apex of the Left ventricle measuring 2 x 1.7cm. Definitive contrast was used. 5. A trileaflet aortic valve with minimal aortic sclerosis but no stenosis. 6. Trace of pulmonic insufficiency and a trace amount of tricuspid insufficiency with estimated right ventricular systolic pressures at the upper range normal at 36mm Hg. 7. Mitral annular calcification with some decrease in mitral valve area 1.4cm/2 there is mild flattening of the posterior leaf of the mitral valve. The valve does appear to coapt fairly well. There is a mild to moderate amount of mitral insufficiency noted. 8. No thrombi were noted in any of the chambers but the left atrial appendage was not seen. there is no thrombi noted in the aneurysm. Dictated by: Basia Harp M.D. on 10/09/2017 at 16:35 Transcribed by: ROXANNA on 10/10/2017 at 10:44 Approved by: Basia Harp M.D. on 10/10/2017 at 12:29 [facility]
--- NOTE | 2017-10-10 14:12 | Hospitalist Progress Note ---
Subjective Progress Notes Subjective She reports "about the same". She still has essentially no appetite. We discussed possible feeding tube placement (NG or PEG), but she adamantly refuses either even if it meant she could potentially without it. Physical Exam Vital Signs Date Time Temp Pulse Resp B/P (MAP) Pulse Ox O2 Delivery O2 Flow Rate FiO2 10/10/17 13:43 98 High-Flow Nasal Cannula 4.0 10/10/17 13:43 71 18 10/10/17 10:41 98.1 165/102 (123) Intake and Output 10/11/17 07:00 Intake Total 120 ml Balance 120 ml Intake Oral 120 ml General Appearance: Alert, Awake Cardiovascular: Regular Rate and Rhythm Respiratory: Other (few scattered rhonchi) GI: Soft and Non-Tender (thin/BS present) Extremities: Warm, Perfused Result Diagram: 10/10/17 0539 10/10/17 05 Assessment and Plan Problems: (1) COPD exacerbation Assessment & Plan: She did present with cough and shortness of breath. Her CT scan showed findings consistent with bronchitis and possibly mild bronchiectasis. She had been started on empiric treatment with nebulizers, corticosteroids, doxycycline and ceftriaxone. Her respiratory symptoms have improved. We stopped her antibiotics and converted her to oral prednisone. She has shown some improvements, but is still requiring 4L oxygen. (2) Abdominal pain Status: Chronic Assessment & Plan: She has had intermittent left sided abdominal pain that seems to worsen after meals and/or cold drinks. CT scan of abdomen and pelvis shows abnormalities of the head of the pancreas (ducts), adrenal glands, and gallbladder. MRCP showed large gallstones, normal gallbladder, suggestion of an 8mm cystic structure at the junction of the head and body of the pancreas, bilateral adrenal masses that are likely adenomas. The patient is on Protonix, with minimal improvements. She still has no appetite and does not want to eat very much. Dr. Godoy discussed the case with Dr. Robertson, who felt she did not have an acute need for surgical intervention at this time. I did discuss the possibility of feeding tube placement, but she is adamant she would not want to pursue this even if it meant she may of malnutrition without it. (3) Ventricular aneurysm Status: Acute Assessment & Plan: Seen on MRCP along the apex of the left ventricle and concern for thrombus within it by the abdominal CT. Echo with contrast shows this to be a very small aneurysm. Will discuss with cardiology. (4) Emphysema, unspecified Assessment & Plan: She is on chronic treatment with Advair. (5) Hypokalemia Status: Acute Assessment & Plan: Resolved with supplementation. (6) Essential hypertension Assessment & Plan: She is on chronic treatment with lisinopril and metoprolol. (7) Depression Assessment & Plan: She is on chronic treatment with bupropion and Lexapro. (8) Pancytopenia Status: Chronic Assessment & Plan: WBC and platelet counts now normal. Hgb stable. Exam Sepsis Risk: No Definite Risk FITZ DAVID MD Oct 10, 2017 14:12
[2017-10-10 14:45] VITALS: BP 144/95
--- NOTE | 2017-10-10 18:48 | Miscellaneous Provider Note ---
Miscellaneous Provider Note Note I discussed echocardiogram finding of small LV apex aneurysm with Dr. Wm Price (cardiology). He felt since we did not know the acuity of this finding and if Ms. Jo was a good candidate for anticoagulation therapy, he would place her on therapy and follow up the echocardiogram in 3 months. Unfortunately, we do not have a definite diagnosis for her ongoing abdominal discomfort and her anorexia. I suspect we will need to further evaluate her upper GI tract with radiologic study or EGD prior to starting anticoagulation. FITZ DAVID MD Oct 10, 2017 18:48
[2017-10-10 19:23] VITALS: BP 136/86
[2017-10-10] MEDS: METOPROLOL SUCC XL 50 MG TABCR 50 MG TAB.ER.24H PO SCH (20:38)
[2017-10-11 05:14] VITALS: BP 171/104
[2017-10-11] MEDS: ALBUTEROL/IPRATROPIUM 3 ML NEB NEB SCH ×4 (05:23→16:53)
[2017-10-11 06:21] LABS: PLATELET COUNT, AUTOMATED 206 K/uL (150-450)
[2017-10-11 07:33] VITALS: BP 156/92
[2017-10-11] MEDS: ESCITALOPRAM OXALATE 10 MG TAB PO SCH (09:43)
[2017-10-11] MEDS: predniSONE 10 MG TAB PO SCH (09:43)
[2017-10-11] MEDS: PANTOPRAZOLE SOD 40 MG TABEC PO SCH (09:43)
[2017-10-11] MEDS: POTASSIUM CHL 10 MEQ TABCR PO SCH ×2 (09:43→16:33)
[2017-10-11] MEDS: LISINOPRIL 20 MG TAB PO SCH (09:43)
[2017-10-11] MEDS: buPROPion SR 100 MG TABSR PO SCH (09:43)
[2017-10-11] MEDS: ENOXAPARIN 40 MG/0.4ML SYR SC SCH (12:07)
[2017-10-11] MEDS: SUCRALFATE 1 GM TAB PO SCH ×3 (12:07→21:21)
[2017-10-11 12:10] VITALS: BP 138/92
--- NOTE | 2017-10-11 12:37 | Hospitalist Progress Note ---
Subjective Progress Notes Subjective The patient is reporting improvement in her abdominal pain. She ate some breakfast this morning, which was a normal amount for her. She is reporting near baseline sensation of SHAH. Physical Exam Vital Signs Date Time Temp Pulse Resp B/P (MAP) Pulse Ox O2 Delivery O2 Flow Rate FiO2 10/11/17 09:33 75 18 10/11/17 09:28 95 High-Flow Nasal Cannula 5.0 10/11/17 07:33 98.3 156/92 (113) Intake and Output 10/12/17 07:00 Intake Total 0 ml Balance 0 ml Intake Oral 0 ml General Appearance: Alert, Awake, Other (Mild work of breathing (just moved from the chair to bed)) GI: Other (Soft, non-distended, mild tenderness on the left with palpation) Extremities: No Edema Result Diagram: 10/11/1752910/11/17 0530 Assessment and Plan Problems: (1) COPD exacerbation Assessment & Plan: She did present with cough and shortness of breath. Her CT scan showed findings consistent with bronchitis and possibly mild bronchiectasis. She had been started on empiric treatment with nebulizers, corticosteroids, doxycycline and ceftriaxone. Her respiratory symptoms have improved. We stopped her antibiotics and converted her to oral prednisone. She has shown some improvements, but is still requiring 4-7L oxygen. (2) Abdominal pain Status: Chronic Assessment & Plan: She has had intermittent left sided abdominal pain that seems to worsen after meals and/or cold drinks. CT scan of abdomen and pelvis shows abnormalities of the head of the pancreas (ducts), adrenal glands, and gallbladder. MRCP showed large gallstones, normal gallbladder, suggestion of an 8mm cystic structure at the junction of the head and body of the pancreas, bilateral adrenal masses that are likely adenomas. Dr. Morris discussed the case with Dr. Robertson, who felt she did not have an acute need for surgical intervention at this time and would recommend a follow-up CT or MRCP in a couple of months. The patient is on Protonix, with improvements. Her appetite is improving. Will add Carafate and follow symptoms. Dr. Ugalde did discuss the possibility of feeding tube placement, but she is adamant she would not want to pursue this even if it meant she may of malnutrition without it. (3) Ventricular aneurysm Status: Acute Assessment & Plan: Seen on MRCP along the apex of the left ventricle and concern for thrombus within it by the abdominal CT. Echo with contrast shows this to be a very small aneurysm. Cardiology recommended a repeat echo with contrast in a couple of months and anticoagulation. Will start Lovenox 40mg a day and consider full anticoagulation if abdominal symptoms continue to improve. (4) Emphysema, unspecified Assessment & Plan: She is on chronic treatment with Advair. (5) Hypokalemia Status: Acute Assessment & Plan: Resolved with supplementation. (6) Essential hypertension Assessment & Plan: She is on chronic treatment with lisinopril and metoprolol. (7) Depression Assessment & Plan: She is on chronic treatment with bupropion and Lexapro. (8) Pancytopenia Status: Chronic Assessment & Plan: Now resolved. The etiology is likely related to the acute illness. Exam Sepsis Risk: No Definite Risk ANDIE MORRIS MD Oct 11, 2017 12:37
[2017-10-11 15:17] VITALS: BP 114/75
[2017-10-11 19:29] VITALS: BP_SYST 136; BP_SYST 145; BP_DIAS 103; BP_DIAS 80
[2017-10-11] MEDS: SALMETEROL/FLUTIC 100/50 1 INH INH SCH (20:48)
[2017-10-11] MEDS: METOPROLOL SUCC XL 50 MG TABCR 50 MG TAB.ER.24H PO SCH (21:21)
[2017-10-12 00:30] VITALS: BP 142/89
[2017-10-12] MEDS: ALBUTEROL/IPRATROPIUM 3 ML NEB NEB SCH ×4 (05:42→16:40)
[2017-10-12] MEDS: SUCRALFATE 1 GM TAB PO SCH ×4 (06:17→20:35)
[2017-10-12 08:04] VITALS: BP 142/82
[2017-10-12] MEDS: POTASSIUM CHL 10 MEQ TABCR PO SCH ×2 (08:08→17:21)
[2017-10-12] MEDS: PANTOPRAZOLE SOD 40 MG TABEC PO SCH (08:09)
[2017-10-12] MEDS: predniSONE 10 MG TAB PO SCH (08:09)
[2017-10-12] MEDS: ESCITALOPRAM OXALATE 10 MG TAB PO SCH (08:09)
[2017-10-12] MEDS: LISINOPRIL 20 MG TAB PO SCH (08:09)
[2017-10-12] MEDS: ENOXAPARIN 40 MG/0.4ML SYR SC SCH ×2 (08:11→20:35)
[2017-10-12] MEDS: buPROPion SR 100 MG TABSR PO SCH (08:16)
--- NOTE | 2017-10-12 08:45 | Hospitalist Progress Note ---
Subjective Progress Notes Subjective The patient denies abdominal pain. No concerns from staff. Physical Exam Vital Signs Date Time Temp Pulse Resp B/P (MAP) Pulse Ox O2 Delivery O2 Flow Rate FiO2 10/12/17 08:04 90 High-Flow Nasal Cannula 3.0 10/12/17 08:04 98.2 80 20 142/82 (102) General Appearance: Alert, Awake, No Acute Distress Result Diagram: 10/11/1730 10/11/17 0530 Assessment and Plan Problems: (1) COPD exacerbation Assessment & Plan: She did present with cough and shortness of breath. Her CT scan showed findings consistent with bronchitis and possibly mild bronchiectasis. She had been started on empiric treatment with nebulizers, corticosteroids, doxycycline and ceftriaxone. Her respiratory symptoms have improved. We stopped her antibiotics and converted her to oral prednisone. She has shown some improvements, but is still requiring 4-7L oxygen. (2) Abdominal pain Status: Chronic Assessment & Plan: She has had intermittent left sided abdominal pain that seems to worsen after meals and/or cold drinks. CT scan of abdomen and pelvis shows abnormalities of the head of the pancreas (ducts), adrenal glands, and gallbladder. MRCP showed large gallstones, normal gallbladder, suggestion of an 8mm cystic structure at the junction of the head and body of the pancreas, bilateral adrenal masses that are likely adenomas. Dr. Morris discussed the case with Dr. Robertson, who felt she did not have an acute need for surgical intervention at this time and would recommend a follow-up CT or MRCP in a couple of months. The patient is on Protonix and Carafate with improvements. Her appetite is improving. Dr. Ugalde did discuss the possibility of feeding tube placement, but she is adamant she would not want to pursue this even if it meant she may of malnutrition without it. (3) Ventricular aneurysm Status: Acute Assessment & Plan: Seen on MRCP along the apex of the left ventricle and concern for thrombus within it by the abdominal CT. Echo with contrast shows this to be a very small aneurysm. Cardiology recommended a repeat echo with contrast in a couple of months and anticoagulation. Started Lovenox 40mg a day and will increase to full anticoagulation with Lovenox. CBC in the morning. (4) Emphysema, unspecified Assessment & Plan: She is on chronic treatment with Advair. (5) Hypokalemia Status: Acute Assessment & Plan: Resolved with supplementation. (6) Essential hypertension Assessment & Plan: She is on chronic treatment with lisinopril and metoprolol. (7) Depression Assessment & Plan: She is on chronic treatment with bupropion and Lexapro. (8) Pancytopenia Status: Chronic Assessment & Plan: Now resolved. The etiology is likely related to the acute illness. Exam Sepsis Risk: No Definite Risk ANDIE MORRIS MD Oct 12, 2017 08:45
[2017-10-12 11:36] VITALS: BP 146/94
[2017-10-12 15:47] VITALS: BP 133/81
[2017-10-12 19:03] VITALS: BP 119/79
[2017-10-12] MEDS: METOPROLOL SUCC XL 50 MG TABCR 50 MG TAB.ER.24H PO SCH (20:35)
[2017-10-12] MEDS: SALMETEROL/FLUTIC 100/50 1 INH INH SCH (20:49)
[2017-10-13 01:20] VITALS: BP 143/86
[2017-10-13] MEDS: ALBUTEROL 2.5 MG/3 ML NEB NEB PRN (01:27)
[2017-10-13] MEDS: SUCRALFATE 1 GM TAB PO SCH ×2 (05:48→11:00)
[2017-10-13] MEDS: ALBUTEROL/IPRATROPIUM 3 ML NEB NEB SCH ×4 (05:54→17:00)
[2017-10-13 06:11] LABS: PLATELET COUNT, AUTOMATED 200 K/uL (150-450)
[2017-10-13 06:51] VITALS: BP 145/90
[2017-10-13] MEDS: predniSONE 10 MG TAB PO SCH (08:28)
[2017-10-13] MEDS: ESCITALOPRAM OXALATE 10 MG TAB PO SCH (08:28)
[2017-10-13] MEDS: POTASSIUM CHL 10 MEQ TABCR PO SCH ×2 (08:28→17:09)
[2017-10-13] MEDS: PANTOPRAZOLE SOD 40 MG TABEC PO SCH (08:28)
[2017-10-13] MEDS: buPROPion SR 100 MG TABSR PO SCH (08:28)
[2017-10-13] MEDS: LISINOPRIL 20 MG TAB PO SCH (08:28)
[2017-10-13 10:43] VITALS: BP 131/82
[2017-10-13] MEDS: ENOXAPARIN 40 MG/0.4ML SYR SC SCH ×2 (11:01→20:56)
--- NOTE | 2017-10-13 11:48 | Hospitalist Progress Note ---
Subjective Progress Notes Subjective Patient is doing well today. She had no acute events overnight. Patient Complains of: Cardiovascular: No: Chest Pain Respiratory: No: Shortness of Breath Physical Exam Vital Signs Date Time Temp Pulse Resp B/P (MAP) Pulse Ox O2 Delivery O2 Flow Rate FiO2 10/13/17 10:43 98.3 93 16 131/82 (98) 90 High-Flow Nasal Cannula 3.0 General Appearance: Alert, Awake, No Acute Distress, Afebrile Cardiovascular: Regular Rate and Rhythm Respiratory: No Respiratory Distress, Clear to Auscultation Psych: Alert & Oriented X3, Appropriate Mood & Affect Result Diagram: 10/13/17 0542 10/13/17 0542 Assessment and Plan Problems: (1) COPD exacerbation Assessment & Plan: She did present with cough and shortness of breath. Her CT scan showed findings consistent with bronchitis and possibly mild bronchiectasis. She had been started on empiric treatment with nebulizers, corticosteroids, doxycycline and ceftriaxone. Her respiratory symptoms have improved. We stopped her antibiotics and oral prednisone. She will go to [facility] tomorrow. (2) Abdominal pain Status: Chronic Assessment & Plan: She has had intermittent left sided abdominal pain that seems to worsen after meals and/or cold drinks. CT scan of abdomen and pelvis shows abnormalities of the head of the pancreas (ducts), adrenal glands, and gallbladder. MRCP showed large gallstones, normal gallbladder, suggestion of an 8mm cystic structure at the junction of the head and body of the pancreas, bilateral adrenal masses that are likely adenomas. Dr. Godoy discussed the case with Dr. Robertson, who felt she did not have an acute need for surgical intervention at this time and would recommend a follow-up CT or MRCP in a couple of months. The patient is on Protonix and Carafate. She feels the Carafate is not helping and would like to stop this. Her appetite is improving. Dr. Ugalde did discuss the possibility of feeding tube placement, but she is adamant she would not want to pursue this even if it meant she may of malnutrition without it. (3) Ventricular aneurysm Status: Acute Assessment & Plan: Seen on MRCP along the apex of the left ventricle and concern for thrombus within it by the abdominal CT. Echo with contrast shows this to be a very small aneurysm. Cardiology recommended a repeat echo with contrast in a couple of months and anticoagulation. Started Lovenox 40mg a day and will increase to full anticoagulation with Lovenox. We will try to get Xarelto approved by her insurance today. Prescription sent to pharmacy to see if it would be approved for patient. (4) Emphysema, unspecified Assessment & Plan: She is on chronic treatment with Advair. (5) Hypokalemia Status: Acute Assessment & Plan: Resolved with supplementation. (6) Essential hypertension Assessment & Plan: She is on chronic treatment with lisinopril and metoprolol. (7) Depression Assessment & Plan: She is on chronic treatment with bupropion and Lexapro. (8) Pancytopenia Status: Chronic Assessment & Plan: Now resolved. The etiology is likely related to the acute illness. Exam Sepsis Risk: No Definite Risk MARKOS DYER [employer] Oct 13, 2017 11:48
[2017-10-13] MEDS ORDERED: RIVA20TA PO (12:28)
[2017-10-13 16:02] VITALS: BP 142/74
[2017-10-13] MEDS: SALMETEROL/FLUTIC 100/50 1 INH INH SCH (19:40)
[2017-10-13 19:57] VITALS: BP 136/80
[2017-10-13] MEDS: METOPROLOL SUCC XL 50 MG TABCR 50 MG TAB.ER.24H PO SCH (20:56)
[2017-10-14 02:30] VITALS: BP 134/79
[2017-10-14] MEDS: ALBUTEROL/IPRATROPIUM 3 ML NEB NEB SCH (05:56)
[2017-10-14 08:17] VITALS: BP 129/78
[2017-10-14] MEDS: ESCITALOPRAM OXALATE 10 MG TAB PO SCH (08:22)
[2017-10-14] MEDS: PANTOPRAZOLE SOD 40 MG TABEC PO SCH (08:22)
[2017-10-14] MEDS: buPROPion SR 100 MG TABSR PO SCH (08:22)
[2017-10-14] MEDS: LISINOPRIL 20 MG TAB PO SCH (08:22)
[2017-10-14] MEDS: ENOXAPARIN 40 MG/0.4ML SYR SC SCH (08:22)
[2017-10-14] MEDS: predniSONE 10 MG TAB PO SCH (08:22)
[2017-10-14] MEDS: POTASSIUM CHL 10 MEQ TABCR PO SCH (08:22)
--- NOTE | 2017-10-14 09:38 | Hospitalist Depart ---
Discharge Summary Reason for Hosp/Final Diag: (1) COPD exacerbation Hospital Course & Plan: She did present with cough and shortness of breath. Her CT scan showed findings consistent with bronchitis and possibly mild bronchiectasis. She had been started on empiric treatment with nebulizers, corticosteroids, doxycycline and ceftriaxone. Her respiratory symptoms have improved, but still requires higher concentration of oxygen. We stopped her antibiotics and oral prednisone. She will go to [facility] today. (2) Abdominal pain Status: Chronic Hospital Course & Plan: She has had intermittent left sided abdominal pain that seems to worsen after meals and/or cold drinks. CT scan of abdomen and pelvis shows abnormalities of the head of the pancreas (ducts), adrenal glands, and gallbladder. MRCP showed large gallstones, normal gallbladder, suggestion of an 8mm cystic structure at the junction of the head and body of the pancreas , bilateral adrenal masses that are likely adenomas. Dr. Godoy discussed the case with Dr. Robertson, who felt she did not have an acute need for surgical intervention at this time and would recommend a follow-up CT or MRCP in a couple of months. The patient is on Protonix and Carafate. She feels the Carafate is not helping and would like to stop this. Her appetite is improving. Dr. Ugalde did discuss the possibility of feeding tube placement, but she is adamant she would not want to pursue this even if it meant she may of malnutrition without it. (3) Ventricular aneurysm Status: Acute Hospital Course & Plan: Seen on MRCP along the apex of the left ventricle and concern for thrombus within it by the abdominal CT. Echo with contrast shows this to be a very small aneurysm. Cardiology recommended a repeat echo with contrast in a couple of months and anticoagulation. She was treated with Lovenox 40mg twice a day. She will stop Lovenox now. Xarelto was approved by her insurance, and will start this tonight. (4) Emphysema, unspecified Hospital Course & Plan: She is on chronic treatment with Advair. (5) Hypokalemia Status: Acute Hospital Course & Plan: Resolved with supplementation. (6) Essential hypertension Hospital Course & Plan: She is on chronic treatment with lisinopril and metoprolol. (7) Depression Hospital Course & Plan: She is on chronic treatment with bupropion and Lexapro. (8) Pancytopenia Status: Chronic Hospital Course & Plan: Now resolved. The etiology is likely related to the acute illness. Departure Weight (Pounds): 102 Result Diagram: 10/13/17 0542 10/13/17 05 Condition: Improved Discharge: Assisted Living Discharge Instructions Home Meds Active Scripts Rivaroxaban 20 Mg (XARELTO 20 MG) 20 Mg Tablet, 20 MG PO DAILY for 30 Days, #30 TAB Prov:MARKOS DYER [facility] 10/13/17 Potassium Chloride (KLOR-CON M10) 10 Meq Tab.er.prt, 10 MEQ PO BID, #30 TAB.SR Prov:IMER DUMONT [facility] 10/04/17 Reported Medications Lisinopril (LISINOPRIL) 20 Mg Tablet, 20 MG PO QDAY, TAB 10/04/17 Fluticasone/Salmeterol (ADVAIR 100-50 DISKUS) 1 Each Disk.w.dev, 1 EACH IH QHS 01/12/16 Metoprolol Succinate (METOPROLOL SUCCINATE) 100 Mg Tab.er.24h, 1 TAB PO QHS, TAB 01/12/16 Calcium Carb/Vit D3/Minerals (CALCIUM +D & MINERALS CHEW TAB) 1 Each Tab.chew, 1 EACH PO DAILY, TAB.CHEW 01/12/16 Multivits-Min/Iron/FA/Lutein (Centrum Silver Women Tablet) 1 Each Tablet, 1 TAB PO DAILY 01/12/16 Bupropion Hcl (BUPROPION HCL SR) 150 Mg Tablet.er, 100 MG PO DAILY 01/12/16 Escitalopram Oxalate (ESCITALOPRAM OXALATE) 20 Mg Tablet, 20 MG PO QDAY 01/12/16 Discontinued Reported Medications Aspirin (ASPIR 81) 81 Mg Tablet.dr, 81 MG PO QDAY, TAB 01/12/16 Discontinued Scripts Azithromycin 250 Mg Tab (AZITHROMYCIN 250 MG TAB) 250 Mg Tablet, 1 TAB PO QDAY, #4 TAB Take 2 tabs today and then 1 tab a day until gone. Prov:IMER DUMONT [facility] 10/04/17 Diet: Regular Activity: As Tolerated Special Instructions: Venous Thromboembolism Antithrombotics Is Pt On Any Antithrombotics?: No MARKOS DYER [facility] Oct 14, 2017 09:38
== END 2017-10-14 10:15 | disposition home or self-care (01) | DRG 191 ==
LOC: ER 17:21 → MED 22:50
PROVIDERS: ADMIT Family Medicine; ATTEND Family Medicine
DX: J43.9 Emphysema, unspecified (principal); I25.3 Aneurysm of heart; D61.818 Other pancytopenia; K86.2 Cyst of pancreas; Z68.1 Body mass index [BMI] 19.9 or less, adult; K80.80 Other cholelithiasis without obstruction; D35.02 Benign neoplasm of left adrenal gland; D35.01 Benign neoplasm of right adrenal gland; J40 Bronchitis, not specified as acute or chronic; E87.6 Hypokalemia; I10 Essential (primary) hypertension; F17.210 Nicotine dependence, cigarettes, uncomplicated; F03.90 Unspecified dementia, unspecified severity, without behavioral disturbance, psychotic disturbance, mood disturbance, and anxiety; E11.9 Type 2 diabetes mellitus without complications; F41.8 Other specified anxiety disorders; R09.02 Hypoxemia; R63.0 Anorexia; Z86.73 Personal history of transient ischemic attack (TIA), and cerebral infarction without residual deficits; Z79.84 Long term (current) use of oral hypoglycemic drugs
CPT/HCPCS: 36415; 71046; 71275; 74178; 74183; 82040; 82150; 82247; 82310; 82374; 82435; 82565; 82607; 82746; 82947; 83690; 83880; 84075; 84132; 84155; 84295; 84450; 84460; 84484; 84520; 85025; 86677; 87502; 93005; 94640; 94667; 94668; 96365; 96366; 97162; 97165; 99285; A9577; C8929; J0696; J1650; J2930; J3480; J3490; J7040; J7050; J7512; J7613; Q9957; Q9967

== ENCOUNTER → 2017-10-17 | Outpatient (CLI) | payer MEDICARE ==
[2017-10-05 08:54] VITALS: BMI 18.6
[~2017-10-17] MED LIST changes: +AZIT-18 PO; +LISI20TA29 PO; +POTA-30 PO; +RIVA20TA PO
[2017-10-17 09:54] LABS: PLATELET COUNT, AUTOMATED 258 K/uL (150-450)
== END ==
LOC: LAB 09:23
PROVIDERS: ATTEND Nurse Practitioner Family
DX: E87.6 Hypokalemia (principal); E11.9 Type 2 diabetes mellitus without complications; I10 Essential (primary) hypertension
CPT/HCPCS: 36415; 82040; 82247; 82310; 82374; 82435; 82465; 82565; 82947; 83036; 83718; 84075; 84132; 84155; 84295; 84450; 84460; 84478; 84520; 85025

== ENCOUNTER → 2017-10-21 | Outpatient (CLI) | payer MEDICARE ==
[2017-10-05 08:54] VITALS: BMI 18.6
== END ==
LOC: ZZSPRING 10-20 09:40
PROVIDERS: ATTEND Nurse Practitioner Family
DX: E87.6 Hypokalemia (principal); Z79.899 Other long term (current) drug therapy
CPT/HCPCS: 36415; 82040; 82247; 82310; 82374; 82435; 82565; 82947; 84075; 84132; 84155; 84295; 84450; 84460; 84520

== ENCOUNTER → 2017-10-28 | Outpatient (CLI) | payer MEDICARE ==
[2017-10-05 08:54] VITALS: BMI 18.6
== END ==
LOC: ZZSPRING 02:44
PROVIDERS: ATTEND Nurse Practitioner Family
DX: E87.6 Hypokalemia (principal); I10 Essential (primary) hypertension; E11.8 Type 2 diabetes mellitus with unspecified complications; Z79.899 Other long term (current) drug therapy
CPT/HCPCS: 36415; 82040; 82247; 82310; 82374; 82435; 82565; 82947; 84075; 84132; 84155; 84295; 84450; 84460; 84520

== ENCOUNTER → 2017-11-25 | Outpatient (CLI) | payer MEDICARE ==
[2017-10-05 08:54] VITALS: BMI 18.6
== END ==
LOC: ZZSPRING 01:11
PROVIDERS: ATTEND Nurse Practitioner Family
DX: E87.6 Hypokalemia (principal)
CPT/HCPCS: 36415; 82040; 82247; 82310; 82374; 82435; 82565; 82947; 84075; 84132; 84155; 84295; 84450; 84460; 84520

== ENCOUNTER 2018-04-03 02:50 | Day surgery (SDC) | payer MEDICARE ==
[2017-10-05 08:54] VITALS: Ht 165.1 cm; Wt 46.7 kg
[~2018-04-03] VITALS: Ht 165.1 cm; Wt 46.7 kg
[~2018-04-03 02:50] MED LIST changes: +BUPR-147 PO; +BUPR-149 PO; +CA C1TAB6 PO; +ESCI10TA8 PO; +FLUT1DIS28 IH; +LACT237L63 PO; -METF-410 PO; +METF-450 PO; +METO50TA19 PO; +OXYGENHOME INH; +RIVA15TA PO; +[UNRECOGNIZED DRUG - CODE] OP
[2018-04-03] MEDS ORDERED: OPHTHALMIC PROCEDURE 2 OS PRN (14:30)
[2018-04-03] MEDS ORDERED: acetaZOLAMIDE 500 MG CAPCR PO ONE (14:30)
[2018-04-03] MEDS ORDERED: NORMOSOL R SOLN(*) 1000 ML BAG 1,000 ML IV PRN (14:30)
[2018-04-03] MEDS ORDERED: OPHTHALMIC PROCEDURE 1 OS PRN (14:30)
[2018-04-03] MEDS ORDERED: LIDOCAINE/SOD BICARB 8.4% SYR ID ONE (14:30)
[2018-04-03 14:32] VITALS: BP 162/84
[2018-04-03] MEDS: OPHTHALMIC PROCEDURE 2 OS PRN ×2 (14:55→15:05)
[2018-04-03 16:04] VITALS: BP 151/81
--- NOTE | 2018-04-03 18:12 | FOSTER LEFT EYE CATARACT ---
EVENT DATE: April 03, 2018 SURGEON: Osmar Jones MD ANESTHESIA: Topical PREOPERATIVE DIAGNOSIS Cataract, left eye. POSTOPERATIVE DIAGNOSIS Cataract, left eye. PROCEDURE Phacoemulsification of cataractous lens with implantation of an intraocular lens, left eye. DESCRIPTION OF PROCEDURE The risks, benefits, and alternatives were carefully discussed with the patient, and preoperative consent was obtained. The patient was brought to the operating room after receiving topical anesthetic. The patient was prepped and draped using sterile technique in the usual manner. A stab incision was made, and the chamber was inflated with preservative-free lidocaine. DuoVisc was injected to inflate the chamber. A 2.2 mm blade was used to enter the anterior chamber. Utrata forceps were used to tear a circular capsulorrhexis. BSS was used to hydrodissect the nucleus. Phaco tip was introduced, and the nucleus was chopped into four quadrants. Each quadrant was removed. The I/A tip was used to remove the cortex. The bag was inflated with ProVisc. The intraocular lens was injected into the capsular bag. The I/A tip was used to remove the ProVisc. The wound was found to be watertight. Vigamox, Nevanac, and Maxitrol ointment were placed in the patient's eye. The patient's eye was patched, and the patient was taken to the recovery room in stable condition. The patient was examined in the recovery room and found to be stable prior to release from the hospital. ASAD
[2018-04-06] MEDS ORDERED: LISI20TA29 PO (13:43)
[2018-04-06] MEDS ORDERED: BUPR-147 PO (13:43)
[2018-04-07] MEDS ORDERED: WHEA1POW10 PO (10:11)
== END 2018-04-03 16:40 | disposition home or self-care (01) ==
LOC: OR 02:50
PROVIDERS: ATTEND Ophthalmology
DX: H25.12 Age-related nuclear cataract, left eye (principal)
CPT/HCPCS: 36416; 66984; 82948; A9270; V2632

== ENCOUNTER 2018-04-13 01:48 | Inpatient (IN) | payer MEDICARE ==
[2018-04-13] VITALS (9 sets, daily range): BP systolic 85–106; BP diastolic 46–67; BMI 18.3
[~2018-04-13] VITALS: Ht 157.5 cm; Wt 42.6 kg
[~2018-04-13 01:48] MED LIST changes: -ACET-1966 PO; -ASPI-757 PO; -GUAI237L21 PO; -L.AC1CAP6 PO; -MAG-65 PO; -MOM PO; -OFLO5DRO41 OS; -PRED1DRO2 OS; -ketorolac OS
--- NOTE | 2018-04-13 01:53 | ER Report ---
History and Physical Time Seen By MD: 01:53 HPI/ROS CHIEF COMPLAINT: Fall with head injury HISTORY OF PRESENT ILLNESS: This is a 77-year-old female. She is a resident of [facility]. She fell tonight, unwitnessed. Blood on the floor from where she hit the back of her head. She is on Xarelto, and this had brisk bleeding. They note an inch long laceration on the back of her scalp that they cannot stop the bleeding. She is also dizzy, and having nausea. Patient denies headache but she does continue to feel dizzy and is very nauseous. She denies any other injury other than a little bit of neck pain. She denies any back pain. No pain in the extremities. She denies chest pain or shortness of breath. Allergies: Coded Allergies: No Known Drug Allergies (Unverified , 10/04/17) Home Meds Active Scripts Wheat Dextrin (BENEFIBER) 1 Each Powd.pack, 1 EACH PO QDAY for 90 Days, #90 PACKET Prov:MEGHA HEART MD 04/07/18 Bupropion Hcl (BUPROPION HCL) 75 Mg Tablet, 1 TAB PO QDAY for 90 Days, #90 TAB 1 Refill Prov:MEGHA HEART MD 04/06/18 Lisinopril (LISINOPRIL) 20 Mg Tablet, 1 TAB PO QDAY for 90 Days, #90 TAB 4 Refills Prov:MEGHA HEART MD 04/06/18 Rivaroxaban 15 Mg (XARELTO 15 MG) 15 Mg Tablet, 15 MG PO DAILY for 90 Days, #90 TAB Prov:MEGHA HEART MD 03/01/18 Escitalopram Oxalate (ESCITALOPRAM OXALATE) 10 Mg Tablet, 10 MG PO QDAY for 90 Days, #90 TAB 4 Refills Prov:MEGHA HEART MD 12/30/17 Reported Medications Guaifenesin/Dextromethorphan (Robitussin Cough-Chest Dm Liq) Unknown Strength Liquid, PO Q4-6H PRN for COUGH Robitussin-DM or generic equivalent. Take 5ml every 4-6 hours PRN for complaints of cough 04/13/18 Mag Hydrox/Aluminum Hyd/Simeth (Maalox Advanced Suspension) Unknown Strength Oral.susp, PO PRN for GAS/HEARTBURN Riopan, Maalox, or generic equivalent. 15 ml every 4 hours PRN for complaints of gastric distress. 04/13/18 L.acidoph & Paracasei,B.lactis (Probiotic) 1 Each Capsule, PO QDAY 04/13/18 Prednisolone Acetate (PRED FORTE) 1 Ml Drops.susp, 0 OS QID starting 04/03/18. instill one drop into left eye four times a day for two weeks starting after surgery 04/13/18 Oxygen (OXYGEN) Inha, 4 L INH, L continuous. Titrate to keep O2 sats between 88-95% 04/13/18 Ofloxacin (Ofloxacin) Unknown Strength Drops, OS QID Starting 04/03/18. instill one drop into left eye four times daily for two weeks following surgery 04/13/18 Magnesium Hydroxide (MILK OF MAGNESIA) 400 Mg/5 Ml Oral.susp, PO QDAY PRN for CONSTIPATION, BOTTLE 04/13/18 Metoprolol Succinate (METOPROLOL SUCCINATE) 50 Mg Tab.er.24h, 1 TAB PO HS, TAB 04/13/18 [ketorolac ] Unknown Strength No Conflict Check, OS QID Starting 04/03/18- instill 1 eye drop into left eye QID for 6 weeks following surgery 04/13/18 Aspirin (ASPIRIN) 325 Mg Tablet, 325 MG PO ONCE PRN for PAIN, TAB 04/13/18 Acetaminophen (TYLENOL) 325 Mg Tablet, 325-650 MG PO Q4H PRN for PAIN, TAB 04/13/18 Lactose-Reduced Food (Ensure Original) 237 Ml Liquid, 1 BOTTLE PO BID PRN for prn 12/30/17 Ca Carbonate/Vitamin D3/Vit K (CALCIUM + D SOFT CHEWABLE TAB) 1 Each Tab.chew, 1 TAB.CHEW PO DAILY, TAB.CHEW 12/30/17 Fluticasone/Salmeterol (ADVAIR 250-50 DISKUS) 1 Each Disk.w.dev, 1 PUFF IH HS 12/30/17 Calcium Carb/Vit D3/Minerals (CALCIUM +D & MINERALS CHEW TAB) 1 Each Tab.chew, 1 EACH PO DAILY, TAB.CHEW 01/12/16 Multivits-Min/Iron/FA/Lutein (Centrum Silver Women Tablet) 1 Each Tablet, 1 TAB PO DAILY 01/12/16 Discontinued Reported Medications Metformin Hcl (METFORMIN HCL) 500 Mg Tablet, 1 TAB PO BID, TAB 04/02/18 Oxygen (OXYGEN) Inha, 2.5-3 L INH, L 01/27/18 Glycerin/Propylene Glycol (ARTIFICIAL TEARS DROPS) 30 Ml Drops, 1 DROP OP TID 12/30/17 Discontinued Scripts Metoprolol Succinate (METOPROLOL SUCCINATE) 50 Mg Tab.er.24h, 1 TAB PO QDAY for 90 Days, #90 TAB Decrease from 100mg daily to 50mg daily Prov:MEGHA HEART MD 03/01/18 Reviewed Nurses Notes: Yes Hx Smoking: Yes (4 cig/ day ) Smoking Status: Current: Every Day Smoker Hx Substance Use Disorder: No Hx Alcohol Use: No Constitutional Vital Sign - Last 24 Hours 04/13/18 04/13/18 04/13/18 04/13/18 01:49 01:51 01:55 02:00 Temp 97.4 Pulse 65 Resp 15 B/P (MAP) 140/86 (104) 140/86 151/96 (114) Pulse Ox 98 O2 Delivery Nasal Cannula O2 Flow Rate 4.0 04/13/18 04/13/18 04/13/18 04/13/18 02:03 02:15 02:18 02:30 Pulse 65 57 B/P (MAP) 122/62 (82) 99/61 (74) Pulse Ox 98 99 04/13/18 04/13/18 04/13/18 04/13/18 02:33 03:00 03:03 03:15 Pulse 56 55 B/P (MAP) 96/68 (77) 104/64 (77) Pulse Ox 98 94 04/13/18 04/13/18 04/13/18 04/13/18 03:18 03:30 03:45 04:00 Pulse 54 55 54 B/P (MAP) 102/63 (76) 98/65 (76) 105/56 (72) Pulse Ox 100 100 100 04/13/18 04/13/18 04/13/18 04/13/18 04:15 04:20 04:30 04:45 Pulse 55 ??? B/P (MAP) 114/61 (78) ???/??? (1665) 107/48 (67) Pulse Ox 94 95 04/13/18 04/13/18 04/13/18 04/13/18 04:50 05:00 05:20 05:23 Pulse 54 54 B/P (MAP) 105/55 (72) 90/61 (71) Pulse Ox 100 100 04/13/18 04/13/18 04/13/18 05:44 05:50 06:00 Pulse 56 B/P (MAP) 103/48 (66) 102/60 (74) Pulse Ox 100 Intake and Output 04/12/18 04/12/18 04/13/18 15:00 23:00 07:00 Intake Total 1000 ml Balance 1000 ml Physical Exam General Appearance: The patient is alert. She is very dizzy and having some acute distress because of this as well as acute distress because of her ongoing nausea. She has vomited a few times. Eyes: Pupils are equal, round. No pallor, injection or icterus. Reactive to light. Extraocular movements are intact. ENT: Mucous membranes are moist. Normal oral mucosa. Posterior oropharynx is normal. Neck: Supple and non tender. No lymphadenopathy. Respiratory: Lungs are clear to auscultation. Cardiovascular: Regular rate and rhythm. No murmurs, gallops or rubs. Pallor. Gastrointestinal: Abdomen is soft and non tender. Nondistended. Normal active bowel sounds. Neurological: Alert. She has generalized weakness and cannot sit up on her own. Also is unable to get up and walk. Anytime she changes position she does get v toni nauseated as well. She is able to move all extremities without deficits noted. No cranial nerve deficits. [ ] Skin: Warm and dry. Significant amount of bleeding from the posterior scalp. As a pressure dressing with 4 x 4 gauze and Coban wrap, this is removed in brisk bleeding resumes. Musculoskeletal: Extremities are nontender. She does have some pain in the cervical spine with palpation. No pain in the back. DIFFERENTIAL DIAGNOSIS: After history and physical exam, differential diagnosis was considered for patient with fall, head injury with brisk bleeding on a blood thinner. We'll need to get a CT scan of the head and neck. Also need to control the bleeding on her scalp. Concern about the amount of bleeding as well. Also appears like she may have a concussion with the dizziness and the vomiting. Medical Decision Making Data Points Result Diagram: 04/13/18 0141 04/13/18 0141 Laboratory Hematology Test 04/13/18 01:41 Red Blood Count 3.99 M/uL (4.17-5.56) Mean Corpuscular Volume 92.3 fL (80.0-96.0) Mean Corpuscular Hemoglobin 31.2 pg (26.0-33.0) Mean Corpuscular Hemoglobin Concent 33.8 g/dL (32.0-36.0) Red Cell Distribution Width 13.9 % (11.5-14.5) Mean Platelet Volume 8.3 fL (7.2-11.1) Neutrophils (%) (Auto) 72.8 % (39.4-72.5) Lymphocytes (%) (Auto) 18.8 % (17.6-49.6) Monocytes (%) (Auto) 7.3 % (4.1-12.4) Eosinophils (%) (Auto) 0.6 % (0.4-6.7) Basophils (%) (Auto) 0.5 % (0.3-1.4) Nucleated RBC Relative Count (auto) 0.1 /100WBC Neutrophils # (Auto) 5.3 K/uL (2.0-7.4) Lymphocytes # (Auto) 1.4 K/uL (1.3-3.6) Monocytes # (Auto) 0.5 K/uL (0.3-1.0) Eosinophils # (Auto) 0.0 K/uL (0.0-0.5) Basophils # (Auto) 0.0 K/uL (0.0-0.1) Nucleated RBC Absolute Count (auto) 0.00 K/uL Prothrombin Time 19.7 seconds (12.0-14.4) Prothromb Time International Ratio 1.65 Activated Partial Thromboplast Time 30 seconds (23-35) Sodium Level 140 mmol/L (137-145) Potassium Level 4.0 mmol/L (3.5-5.0) Chloride Level 99 mmol/L (98-107) Carbon Dioxide Level 35 mmol/L (22-31) Blood Urea Nitrogen 22 mg/dl (7-18) Creatinine 1.10 mg/dl (0.52-1.04) Glomerular Filtration Rate Calc 48.2 Random Glucose 174 mg/dl (75-110) Calcium Level 9.1 mg/dl (8.4-10.2) Total Bilirubin 0.4 mg/dl (0.2-1.3) Aspartate Amino Transf (AST/SGOT) 26 U/L (0-35) Alanine Aminotransferase (ALT/SGPT) 24 U/L (0-56) Alkaline Phosphatase 58 U/L (0-126) Total Protein 6.6 g/dl (6.3-8.2) Albumin 3.7 g/dl (3.5-5.0) Chemistry Test 04/13/18 01:41 White Blood Count 7.3 k/uL (4.5-11.0) Red Blood Count 3.99 M/uL (4.17-5.56) Hemoglobin 12.4 g/dL (12.0-16.0) Hematocrit 36.8 % (34.0-47.0) Mean Corpuscular Volume 92.3 fL (80.0-96.0) Mean Corpuscular Hemoglobin 31.2 pg (26.0-33.0) Mean Corpuscular Hemoglobin Concent 33.8 g/dL (32.0-36.0) Red Cell Distribution Width 13.9 % (11.5-14.5) Platelet Count 208 K/uL (150-450) Mean Platelet Volume 8.3 fL (7.2-11.1) Neutrophils (%) (Auto) 72.8 % (39.4-72.5) Lymphocytes (%) (Auto) 18.8 % (17.6-49.6) Monocytes (%) (Auto) 7.3 % (4.1-12.4) Eosinophils (%) (Auto) 0.6 % (0.4-6.7) Basophils (%) (Auto) 0.5 % (0.3-1.4) Nucleated RBC Relative Count (auto) 0.1 /100WBC Neutrophils # (Auto) 5.3 K/uL (2.0-7.4) Lymphocytes # (Auto) 1.4 K/uL (1.3-3.6) Monocytes # (Auto) 0.5 K/uL (0.3-1.0) Eosinophils # (Auto) 0.0 K/uL (0.0-0.5) Basophils # (Auto) 0.0 K/uL (0.0-0.1) Nucleated RBC Absolute Count (auto) 0.00 K/uL Prothrombin Time 19.7 seconds (12.0-14.4) Prothromb Time International Ratio 1.65 Activated Partial Thromboplast Time 30 seconds (23-35) Glomerular Filtration Rate Calc 48.2 Calcium Level 9.1 mg/dl (8.4-10.2) Total Bilirubin 0.4 mg/dl (0.2-1.3) Aspartate Amino Transf (AST/SGOT) 26 U/L (0-35) Alanine Aminotransferase (ALT/SGPT) 24 U/L (0-56) Alkaline Phosphatase 58 U/L (0-126) Total Protein 6.6 g/dl (6.3-8.2) Albumin 3.7 g/dl (3.5-5.0) Coagulation Test 04/13/18 01:41 Prothrombin Time 19.7 seconds Prothromb Time International Ratio 1.65 Activated Partial Thromboplast Time 30 seconds EKG/Imaging Imaging CT Head without contrast and CT Cervical spine: Indication: Fall, head injury. Comparison: None available Technique: CT head: Axial CT images were obtained through the brain from the skull base to the vertex without administration of IV contrast. Reformatted coronal and sagittal images were also obtained. Technique: CT cervical spine: Axial CT imaging of the cervical spine was performed. 2-D sagittal and coronal CT reformats were also obtained. One of the following dose optimization techniques was utilized in the performance of this exam: Automated exposure control; adjustment of the mA and/or kV according to the patient's size; or use of an iterative reconstruction technique. Specific details can be referenced in the facility's radiology CT exam operational policy. FINDINGS: CT head: Right posterior scalp contusion with associated cutaneous deena. No fracture. No evidence of mass, mass effect, or midline shift. No acute intracranial hemorrhage or acute territorial infarction. Encephalomalacia in the left posterior cerebral artery distribution and bilateral MCA distribution consistent with remote infarcts. Remote lacunar infarcts in the right basal ganglia and bilateral cerebellar hemispheres. Moderate to large amount of white matter hypoattenuation consistent with chronic small vessel ischemic disease. Globes and orbits are nonacute. Lens surgery on the left. Small right sphenoid sinus retention cyst. CT cervical spine: No acute abnormality of cervical vertebral body height and alignment. No cervical spine fracture. There is no prevertebral soft tissue thickening. The intervertebral disc spaces are maintained. The spinal canal and neural foramina appear maintained at all levels. Remaining visualized cervical soft tissues are unremarkable. The airway is patent. Moderate emphysema in the lung apices. IMPRESSION: 1. No acute intracranial abnormality. 2. No acute osseous abnormality of the cervical spine. 3. Multifocal remote cerebral and cerebellar infarcts. Report Dictated By: Neptali Villarreal MD at 04/13/2018 3:18 AM ED Course/Re-evaluation ED Course After my initial evaluation, the brisk bleeding was a concern. We went ahead and got a basin of saline and Hibiclens and using washcloth and gauze, was able to slowly evaluate the scalp. Eventually I was able to see an area about 3 cm long laceration with brisk bleeding. I did treat this with deena. 7 deena were placed and the bleeding was then controlled with direct pressure. Later her scalp was cleaned further with the matted blood removed from her hair to see if there is any further lesions that needed to be addressed. Any movement causes severe nausea and she has vomited several times despite getting some IV Zofran. CT scan of the head and cervical spine was done and are negative. On reevaluation, she is still very weak and cannot get up and walk on her own. Also with continued nausea. Appears likely to be concussed. Concern about her blood loss tonight as well, but vitals are okay. Called Dr. Ugalde who accepted the patient for admission. Decision to Disposition Date: Apr 13, 2018 Decision to Disposition Time: 05:55 Depart Departure Latest Vital Signs Vital Signs Date Time Temp Pulse Resp B/P (MAP) Pulse Ox O2 Delivery O2 Flow Rate FiO2 04/13/18 06:00 102/60 (74) 04/13/18 05:50 56 100 04/13/18 01:55 4.0 04/13/18 01:51 97.4 15 Nasal Cannula Impression: Primary Impression: Concussion Condition: Improved Disposition: Admitted from ER Referrals: MEGHA HEART MD (PCP) Problem Qualifiers Primary Impression: Concussion Encounter type: initial encounter Loss of consciousness presence/duration: with LOC of unspecified duration Qualified Codes: S06.0X9A - Concussion with loss of consciousness of unspecified duration, initial encounter CHARLY CAVANAUGH MD Apr 13, 2018 01:53
[2018-04-13] MEDS ORDERED: ONDANSETRON 4 MG/2 ML VIAL ONE (02:18)
[2018-04-13 02:35] LABS: PLATELET COUNT, AUTOMATED 208 K/uL (150-450)
[2018-04-13 02:38] LABS: INR 1.65
--- NOTE | 2018-04-13 03:32 | RADIOLOGY IMAGING REPORT ---
FACILITY: [facility] PATIENT NAME: Rosamaria Jo : 1940 MR: [id number] V: [id number] EXAM DATE: ORDERING PHYSICIAN: CHARLY CAVANAUGH TECHNOLOGIST: Location: [facility] Patient: Rosamaria Jo : 1940 Visit/Account:[id number] Date of Sevice: 04/13/2018 CT Head without contrast and CT Cervical spine: Indication: Fall, head injury. Comparison: None available Technique: CT head: Axial CT images were obtained through the brain from the skull base to the verte x without administration of IV contrast. Reformatted coronal and sagittal images were also obtained. Technique: CT cervical spine: Axial CT imaging of the cervical spine was performed. 2-D sagittal and coronal CT reformats were also obtained. One of the following dose optimization techniques was utilized in the performance of this exam: Autom ated exposure control; adjustment of the mA and/or kV according to the patient's size; or use of an i terative reconstruction technique. Specific details can be referenced in the facility's radiology C T exam operational policy. FINDINGS: CT head: Right posterior scalp contusion with associated cutaneous deena. No fracture. No evidence of mass, mass effect, or midline shift. No acute intracranial hemorrhage or acute territorial infarction. Encephalomalacia in the left posterior cerebral artery distribution and bilateral MCA distribution co nsistent with remote infarcts. Remote lacunar infarcts in the right basal ganglia and bilateral cere bellar hemispheres. Moderate to large amount of white matter hypoattenuation consistent with chronic small vessel ischemic disease. Globes and orbits are nonacute. Lens surgery on the left. Small right sphenoid sinus retention cyst. CT cervical spine: No acute abnormality of cervical vertebral body height and alignment. No cervical spine fracture. T here is no prevertebral soft tissue thickening. The intervertebral disc spaces are maintained. The spinal canal and neural foramina appear maintaine d at all levels. Remaining visualized cervical soft tissues are unremarkable. The airway is patent. Moderate emphyse ma in the lung apices. IMPRESSION: 1. No acute intracranial abnormality. 2. No acute osseous abnormality of the cervical spine. 3. Multifocal remote cerebral and cerebellar infarcts. Report Dictated By: Neptali Villarreal MD at 04/13/2018 3:18 AM Report E-Signed By: Neptali Villarreal MD at 04/13/2018 3:29 AM WSN:[id number]
--- NOTE | 2018-04-13 03:33 | RADIOLOGY IMAGING REPORT ---
[place] [facility] [place] Rosamaria Jo : 1940 MR: [id number] V: [id number] EXAM DATE: ORDERING PHYSICIAN: CHARLY CAVANAUGH TECHNOLOGIST: Location: [facility] Patient: Rosamaria Jo : 1940 Visit/Account:[id number] Date of Sevice: 04/13/2018 CT Head without contrast and CT Cervical spine: Indication: Fall, head injury. Comparison: None available Technique: CT head: Axial CT images were obtained through the brain from the skull base to the verte x without administration of IV contrast. Reformatted coronal and sagittal images were also obtained. Technique: CT cervical spine: Axial CT imaging of the cervical spine was performed. 2-D sagittal and coronal CT reformats were also obtained. One of the following dose optimization techniques was utilized in the performance of this exam: Autom ated exposure control; adjustment of the mA and/or kV according to the patient's size; or use of an i terative reconstruction technique. Specific details can be referenced in the facility's radiology C T exam operational policy. FINDINGS: CT head: Right posterior scalp contusion with associated cutaneous deena. No fracture. No evidence of mass, mass effect, or midline shift. No acute intracranial hemorrhage or acute territorial infarction. Encephalomalacia in the left posterior cerebral artery distribution and bilateral MCA distribution co nsistent with remote infarcts. Remote lacunar infarcts in the right basal ganglia and bilateral cere bellar hemispheres. Moderate to large amount of white matter hypoattenuation consistent with chronic small vessel ischemic disease. Globes and orbits are nonacute. Lens surgery on the left. Small right sphenoid sinus retention cyst. CT cervical spine: No acute abnormality of cervical vertebral body height and alignment. No cervical spine fracture. T here is no prevertebral soft tissue thickening. The intervertebral disc spaces are maintained. The spinal canal and neural foramina appear maintaine d at all levels. Remaining visualized cervical soft tissues are unremarkable. The airway is patent. Moderate emphyse ma in the lung apices. IMPRESSION: 1. No acute intracranial abnormality. 2. No acute osseous abnormality of the cervical spine. 3. Multifocal remote cerebral and cerebellar infarcts. Report Dictated By: Neptali Villarreal MD at 04/13/2018 3:18 AM Report E-Signed By: Neptali Villarreal MD at 04/13/2018 3:29 AM WSN:[id number]
[2018-04-13] MEDS ORDERED: ACET-1966 PO (03:42)
[2018-04-13] MEDS ORDERED: L.AC1CAP6 PO (03:42)
[2018-04-13] MEDS ORDERED: PRED1DRO2 OS (03:42)
[2018-04-13] MEDS ORDERED: ASPI-757 PO (03:42)
[2018-04-13] MEDS ORDERED: ketorolac OS (03:42)
[2018-04-13] MEDS ORDERED: MOM PO (03:42)
[2018-04-13] MEDS ORDERED: OFLO5DRO41 OS (03:42)
[2018-04-13] MEDS ORDERED: GUAI237L21 PO (03:42)
[2018-04-13] MEDS ORDERED: METO50TA19 PO (03:42)
[2018-04-13] MEDS ORDERED: OXYGENHOME INH (03:42)
[2018-04-13] MEDS ORDERED: MAG-65 PO (03:42)
[2018-04-13] MEDS ORDERED: EMS NS 0.9%(*) 1000 ML BAG 1,000 ML IV ONE (05:45)
[2018-04-13] MEDS ORDERED: PROMETHAZINE 25 MG/ML 1 ML AMP IVP PRN (07:50)
[2018-04-13] MEDS ORDERED: MAGNESIUM HYDROXIDE* 30ML UDCP PO PRN (07:50)
[2018-04-13] MEDS ORDERED: ACETAMINOPHEN 325 MG TAB PO PRN (07:50)
[2018-04-13] MEDS ORDERED: INFLUENZA VIRUS VAC 0.5ML SYR IM ONLY ONE (07:50)
[2018-04-13] MEDS ORDERED: NS(*) 0.9% 1000 ML BAG 1,000 ML IV ONE ×2 (07:55→11:15)
--- NOTE | 2018-04-13 09:35 | History & Physical ---
History of Present Illness Chief Complaint Fall History of Present Illness She is a 77-year-old female, who presented to the emergency department after an unwitnessed fall. She is a resident of [facility], and there was blood on the floor from where she hit the back of her head. She is on Xarelto, and had brisk bleeding. They note an inch long laceration on the back of her scalp that they cannot stop the bleeding. She is also dizzy, and having nausea. Patient denies headache but she does continue to feel dizzy and is nauseous. She denies any other injury other than a little bit of neck pain. She denies any back pain. No pain in the extremities. She denies chest pain or shortness of breath. She was recommended for admission secondary to dizziness and inability to ambulate. History Problems: (1) COPD (chronic obstructive pulmonary disease) Status: Chronic (2) Depression Status: Chronic (3) HTN (hypertension) Status: Chronic (4) Dementia Status: Chronic (5) Tremor Status: Chronic Home Meds Active Scripts Wheat Dextrin (BENEFIBER) 1 Each Powd.pack, 1 EACH PO QDAY for 90 Days, #90 PACKET Prov:MEGHA HEART MD 04/07/18 Bupropion Hcl (BUPROPION HCL) 75 Mg Tablet, 1 TAB PO QDAY for 90 Days, #90 TAB 1 Refill Prov:MEGHA HEART MD 04/06/18 Lisinopril (LISINOPRIL) 20 Mg Tablet, 1 TAB PO QDAY for 90 Days, #90 TAB 4 Refills Prov:MEGHA HEART MD 04/06/18 Rivaroxaban 15 Mg (XARELTO 15 MG) 15 Mg Tablet, 15 MG PO DAILY for 90 Days, #90 TAB Prov:MEGHA HEART MD 03/01/18 Escitalopram Oxalate (ESCITALOPRAM OXALATE) 10 Mg Tablet, 10 MG PO QDAY for 90 Days, #90 TAB 4 Refills Prov:MEGHA HEART MD 12/30/17 Reported Medications Guaifenesin/Dextromethorphan (Robitussin Cough-Chest Dm Liq) Unknown Strength Liquid, PO Q4-6H PRN for COUGH Robitussin-DM or generic equivalent. Take 5ml every 4-6 hours PRN for complaints of cough 04/13/18 Mag Hydrox/Aluminum Hyd/Simeth (Maalox Advanced Suspension) Unknown Strength Oral.susp, PO PRN for GAS/HEARTBURN Riopan, Maalox, or generic equivalent. 15 ml every 4 hours PRN for complaints of gastric distress. 04/13/18 L.acidoph & Paracasei,B.lactis (Probiotic) 1 Each Capsule, PO QDAY 04/13/18 Prednisolone Acetate (PRED FORTE) 1 Ml Drops.susp, 0 OS QID starting 04/03/18. instill one drop into left eye four times a day for two weeks starting after surgery 04/13/18 Oxygen (OXYGEN) Inha, 4 L INH, L continuous. Titrate to keep O2 sats between 88-95% 04/13/18 Ofloxacin (Ofloxacin) Unknown Strength Drops, OS QID Starting 04/03/18. instill one drop into left eye four times daily for two weeks following surgery 04/13/18 Magnesium Hydroxide (MILK OF MAGNESIA) 400 Mg/5 Ml Oral.susp, PO QDAY PRN for CONSTIPATION, BOTTLE 04/13/18 Metoprolol Succinate (METOPROLOL SUCCINATE) 50 Mg Tab.er.24h, 1 TAB PO HS, TAB 04/13/18 [ketorolac ] Unknown Strength No Conflict Check, OS QID Starting 04/03/18- instill 1 eye drop into left eye QID for 6 weeks following surgery 04/13/18 Aspirin (ASPIRIN) 325 Mg Tablet, 325 MG PO ONCE PRN for PAIN, TAB 04/13/18 Acetaminophen (TYLENOL) 325 Mg Tablet, 325-650 MG PO Q4H PRN for PAIN, TAB 04/13/18 Lactose-Reduced Food (Ensure Original) 237 Ml Liquid, 1 BOTTLE PO BID PRN for prn 12/30/17 Ca Carbonate/Vitamin D3/Vit K (CALCIUM + D SOFT CHEWABLE TAB) 1 Each Tab.chew, 1 TAB.CHEW PO DAILY, TAB.CHEW 12/30/17 Fluticasone/Salmeterol (ADVAIR 250-50 DISKUS) 1 Each Disk.w.dev, 1 PUFF IH HS 12/30/17 Calcium Carb/Vit D3/Minerals (CALCIUM +D & MINERALS CHEW TAB) 1 Each Tab.chew, 1 EACH PO DAILY, TAB.CHEW 01/12/16 Multivits-Min/Iron/FA/Lutein (Centrum Silver Women Tablet) 1 Each Tablet, 1 TAB PO DAILY 01/12/16 Discontinued Reported Medications Metformin Hcl (METFORMIN HCL) 500 Mg Tablet, 1 TAB PO BID, TAB 04/02/18 Oxygen (OXYGEN) Inha, 2.5-3 L INH, L 01/27/18 Glycerin/Propylene Glycol (ARTIFICIAL TEARS DROPS) 30 Ml Drops, 1 DROP OP TID 12/30/17 Discontinued Scripts Metoprolol Succinate (METOPROLOL SUCCINATE) 50 Mg Tab.er.24h, 1 TAB PO QDAY for 90 Days, #90 TAB Decrease from 100mg daily to 50mg daily Prov:MEGHA HEART MD 03/01/18 Allergies: Coded Allergies: No Known Drug Allergies (Unverified , 10/04/17) Hx Smoking: No Smoking Status: Former Smoker When Quit Tobacco?: 3 months ago Caffeine Intake: Soda Caffeine/Cups Per Day: 1pd Hx Alcohol Use: No Hx Substance Use Disorder: No Social Drug Use: Never Review of Systems All Systems Reviewed/Normal: Yes, Except as Noted Neurological: Weakness Gastrointestinal: Nausea Exam Vital Signs Vital Signs Date Time Temp Pulse Resp B/P (MAP) Pulse Ox O2 Delivery O2 Flow Rate FiO2 04/13/18 08:42 97.9 66 26 87/57 (67) 100 Nasal Cannula 3.0 General Appearance: Alert, Awake, No Acute Distress, Afebrile Neuro: No Gross deficits Cardiovascular: Regular Rate and Rhythm Respiratory: No Respiratory Distress GI: Abd Soft and Non-Tender Extremities: Warm, Perfused; No Edema Psych: Alert & Oriented X3, Appropriate Mood & Affect Medical Decision Making Data Points Result Diagram: 04/13/1814004/13/18140 EKG / Imaging Imaging PATIENT NAME: Rosamaria Jo : 1940 MR: [id number] V: [id number] EXAM DATE: ORDERING PHYSICIAN: CHARLY CAVANAUGH TECHNOLOGIST: Location: [facility] Patient: Rosamaria Jo : 1940 Visit/Account:[id number] Date of Sevice: 04/13/2018 CT Head without contrast and CT Cervical spine: Indication: Fall, head injury. Comparison: None available Technique: CT head: Axial CT images were obtained through the brain from the skull base to the vertex without administration of IV contrast. Reformatted coronal and sagittal images were also obtained. Technique: CT cervical spine: Axial CT imaging of the cervical spine was perfo rmed. 2-D sagittal and coronal CT reformats were also obtained. One of the following dose optimization techniques was utilized in the performance of this exam: Automated exposure control; adjustment of the mA and/or kV according to the patient's size; or use of an iterative reconstruction technique. Specific details can be referenced in the facility's radiology CT exam operational policy. FINDINGS: CT head: Right posterior scalp contusion with associated cutaneous deena. No fracture. No evidence of mass, mass effect, or midline shift. No acute intracranial hemorrhage or acute territorial infarction. Encephalomalacia in the left posterior cerebral artery distribution and bilatera l MCA distribution consistent with remote infarcts. Remote lacunar infarcts in the right basal ganglia and bilateral cerebellar hemispheres. Moderate to large amount of white matter hypoattenuation consistent with chronic small vessel ischemic disease. Globes and orbits are nonacute. Lens surgery on the left. Small right sphenoid sinus retention cyst. CT cervical spine: No acute abnormality of cervical vertebral body height and alignment. No cervical spine fracture. There is no prevertebral soft tissue thickening. The intervertebral disc spaces are maintained. The spinal canal and neural foramina appear maintained at all levels. Remaining visualized cervical soft tissues are unremarkable. The airway is patent. Moderate emphysema in the lung apices. IMPRESSION: 1. No acute intracranial abnormality. 2. No acute osseous abnormality of the cervical spine. 3. Multifocal remote cerebral and cerebellar infarcts. Report Dictated By: Neptali Villarreal MD at 04/13/2018 3:18 AM Report E-Signed By: Neptali Villarreal MD at 04/13/2018 3:29 AM Pre-Admit Course Medical Record Review: Yes Assessment and Plan Problems: (1) Concussion Status: Acute Assessment & Plan: She appears to have a concussion post fall. She has nausea. She will get antiemetics. Continue to monitor. (2) Weakness Status: Acute Assessment & Plan: She will work with PT and OT. (3) HTN (hypertension) Status: Chronic Assessment & Plan: She is on chronic treatment with Metoprolol and Lisinopril. These will be restarted with hold parameters. She will receive IV hydration, as her systolic blood pressure is in the 90's and she has been dizzy. (4) Depression Status: Chronic Assessment & Plan: She is on chronic treatment with escitalopram. (5) History of TIAs Status: Resolved Assessment & Plan: She is on chronic treatment with Xarelto. (6) Dementia Status: Chronic (7) Tremor Status: Chronic Venous Thromboembolism Antithrombotics Is Pt On Any Antithrombotics?: Yes Exam Sepsis Risk: No Definite Risk Problem Qualifiers (1) Concussion: Encounter type: initial encounter Loss of consciousness presence/duration: with LOC of unspecified duration Qualified Codes: S06.0X9A - Concussion with loss of consciousness of unspecified duration, initial encounter (2) HTN (hypertension): Hypertension type: essential hypertension Qualified Codes: I10 - Essential (primary) hypertension MARKOS DYER Apr 13, 2018 09:35
[2018-04-13] MEDS: ESCITALOPRAM OXALATE 10 MG TAB PO SCH (09:49)
[2018-04-13] MEDS: buPROPion IR 75 MG TAB PO SCH (09:51)
[2018-04-13] MEDS: RIVAROXABAN 10 MG TAB PO SCH (09:51)
[2018-04-13] MEDS: LISINOPRIL 20 MG TAB PO SCH (09:53)
[2018-04-13] MEDS: METOPROLOL SUCC XL 50 MG TABCR 50 MG TAB.ER.24H PO SCH (09:54)
[2018-04-13] MEDS: prednisoLONE ACE 1% OP 5ML BTL OS SCH ×4 (10:08→21:05)
[2018-04-13] MEDS: OFLOXACIN 0.3% OP SOLN 5ML BTL OD SCH ×2 (16:24→21:05)
[2018-04-13] MEDS: SALMETEROL/FLUTIC 250/50 1 INH INH SCH ×2 (17:50→18:47)
[2018-04-14] VITALS (8 sets, daily range): BP systolic 105–137; BP diastolic 47–107
[2018-04-14 06:03] LABS: PLATELET COUNT, AUTOMATED 124 K/uL (150-450)
[2018-04-14] MEDS: buPROPion IR 75 MG TAB PO SCH (09:54)
[2018-04-14] MEDS: METOPROLOL SUCC XL 50 MG TABCR 50 MG TAB.ER.24H PO SCH (09:54)
[2018-04-14] MEDS: LISINOPRIL 20 MG TAB PO SCH (09:54)
[2018-04-14] MEDS: RIVAROXABAN 10 MG TAB PO SCH (09:55)
[2018-04-14] MEDS: ESCITALOPRAM OXALATE 10 MG TAB PO SCH (09:55)
[2018-04-14] MEDS: OFLOXACIN 0.3% OP SOLN 5ML BTL OD SCH ×4 (09:56→21:01)
[2018-04-14] MEDS: prednisoLONE ACE 1% OP 5ML BTL OS SCH ×4 (10:26→21:00)
--- NOTE | 2018-04-14 10:58 | Hospitalist Progress Note ---
Subjective Progress Notes Subjective She has complaints of SOB this morning. She had no acute events overnight. Patient Complains of: Cardiovascular: No: Chest Pain Respiratory: Shortness of Breath Physical Exam Vital Signs Date Time Temp Pulse Resp B/P (MAP) Pulse Ox O2 Delivery O2 Flow Rate FiO2 04/14/18 10:36 98.0 80 24 105/55 04/14/18 08:07 96 Nasal Cannula 4.0 Intake and Output 04/14/18 01:00 Intake Total 1850 ml Balance 1850 ml Intake Oral 850 ml IV Total 1000 ml # Voids 2 # Bowel Movements 1 General Appearance: Alert, Awake, No Acute Distress, Afebrile Neuro: No Gross deficits Cardiovascular: Regular Rate and Rhythm Respiratory: No Respiratory Distress, Clear to Auscultation GI: Soft and Non-Tender Integumentary: Other (no bleeding noted from head wound) Psych: Alert & Oriented X3, Appropriate Mood & Affect Result Diagram: 04/14/18 0540 04/14/18 0540 Assessment and Plan Problems: (1) Concussion Status: Acute Assessment & Plan: She appears to have a concussion post fall. She had nausea, which has now resolved. Continue to monitor. (2) Acute blood loss anemia Status: Acute Assessment & Plan: Her hemoglobin dropped overnight to 7.0 from 12.4. She will be transfused 2 units today. Blood loss believed to be from head wound, since she is on Xarelto. SOB also could be from low Hgb. (3) Weakness Status: Acute Assessment & Plan: She will work with PT and OT. (4) HTN (hypertension) Status: Chronic Assessment & Plan: She is on chronic treatment with Metoprolol and Lisinopril. These will be restarted with hold parameters. She received IV hydration, as her systolic blood pressure is in the 90's and she has been dizzy. (5) Depression Status: Chronic Assessment & Plan: She is on chronic treatment with escitalopram. (6) History of TIAs Status: Resolved Assessment & Plan: She is on chronic treatment with Xarelto. (7) Dementia Status: Chronic (8) Tremor Status: Chronic Exam Sepsis Risk: No Definite Risk Problem Qualifiers (1) Concussion: Encounter type: initial encounter Loss of consciousness presence/duration: with LOC of unspecified duration Qualified Codes: S06.0X9A - Concussion with loss of consciousness of unspecified duration, initial encounter (2) HTN (hypertension): Hypertension type: essential hypertension Qualified Codes: I10 - Essential (primary) hypertension MARKOS DYERP Apr 14, 2018 10:58
[2018-04-14] MEDS: NS(*) 0.9% 500 ML BAG 500 ML IV PRN ×2 (13:20→13:25)
[2018-04-14] MEDS: SALMETEROL/FLUTIC 250/50 1 INH INH SCH (20:00)
[2018-04-14] MEDS: ALBUTEROL/IPRATROPIUM 3 ML NEB NEB PRN (21:29)
[2018-04-15 06:18] LABS: PLATELET COUNT, AUTOMATED 111 K/uL (150-450)
[2018-04-15 08:26] VITALS: BP 120/60
[2018-04-15] MEDS: METOPROLOL SUCC XL 50 MG TABCR 50 MG TAB.ER.24H PO SCH (09:00)
[2018-04-15] MEDS: prednisoLONE ACE 1% OP 5ML BTL OS SCH ×4 (09:46→20:46)
[2018-04-15] MEDS: OFLOXACIN 0.3% OP SOLN 5ML BTL OD SCH ×4 (09:46→20:45)
[2018-04-15] MEDS: LISINOPRIL 20 MG TAB PO SCH (09:46)
[2018-04-15] MEDS: ESCITALOPRAM OXALATE 10 MG TAB PO SCH (09:47)
[2018-04-15] MEDS: buPROPion IR 75 MG TAB PO SCH (09:47)
[2018-04-15] MEDS: RIVAROXABAN 10 MG TAB PO SCH (09:56)
--- NOTE | 2018-04-15 13:20 | RADIOLOGY IMAGING REPORT ---
FACILITY: [facility] PATIENT NAME: Rosamaria Jo : 1940 MR: [id number] V: [id number] EXAM DATE: ORDERING PHYSICIAN: FITZ DAVID TECHNOLOGIST: Location: [facility] [place] Patient: Rosamaria Jo : 1940 Visit/Account:[id number] Date of Sevice: 04/15/2018 Exam type: CHEST SINGLE AP History: increased oxygen requirement Comparison: October 04, 2017. Findings: Again noted is hyperinflation of the lung sommers. Prominence of the central pulmonary arteries are a gain seen. The right hilar shadow appears more prominent however when compared to the prior study. There is no evidence of acute appearing infiltrates pleural effusions upon edema. The cardiac silhou ette is normal in size. IMPRESSION: 1. Hyperinflation lung sommers 2. Prominence of the central pulmonary arteries likely related to pul monary arterial hypertension 3. The right hilar shadow appears more prominent when compared the prio r study. Given this interval change in increased oxygen requirement CT of the chest may be helpful f or further evaluation Report Dictated By: Katie Rockwell MD at 04/15/2018 1:11 PM Report E-Signed By: Katie Rockwell MD at 04/15/2018 1:16 PM WSN:[email or web address]
[2018-04-15] MEDS ORDERED: IOPAMIDOL 76% 75 ML INFUS BTL 75 ML ONE (14:41)
[2018-04-15 14:44] VITALS: BP 122/66
--- NOTE | 2018-04-15 15:00 | Hospitalist Progress Note ---
Subjective Progress Notes Subjective Patient denies any complaints. She has been noted by nursing to have increased oxygen requirement and apparent dyspnea. Physical Exam Vital Signs Date Time Temp Pulse Resp B/P (MAP) Pulse Ox O2 Delivery O2 Flow Rate FiO2 04/15/18 14:44 99.1 76 28 122/66 (84) 100 High-Flow Nasal Cannula 4.0 Intake and Output 04/15/18 07:00 Intake Total 1320 ml Balance 1320 ml Intake Oral 320 ml Blood Product 1000 ml # Voids 3 General Appearance: Alert, Awake ENT: Other (scalp laceration approximated with deena/no dehiscence noted) Cardiovascular: Other (Regular distant tones) Respiratory: Other (diminished breath sounds bilaterally with end expiratory wheezes) Chest: No Tenderness GI: Soft and Non-Tender Extremities: Warm, Perfused Result Diagram: 04/15/18 0504/15/18 05 Assessment and Plan Problems: (1) Dyspnea Status: Acute Assessment & Plan: She has some wheezing on exam and increased O2 requirement. Will check CXR. Continue respiratory treatments. May need pulse of steroids as well. (2) Concussion Status: Acute Assessment & Plan: She appears to have had a concussion in a fall at [facility]. She had nausea, which has now resolved. She appears to be doing fairly well from this standpoint. (3) Acute blood loss anemia Status: Acute Assessment & Plan: Her hemoglobin dropped significantly to 7.0 from 12.4. She was transfused 2 units yesterday. Blood loss believed to be from head wound as she is on Xarelto. Hgb/Hct are11.5/32.9 this AM after transfusion. (4) Weakness Status: Acute Assessment & Plan: She is working with PT and OT. (5) HTN (hypertension) Status: Chronic Assessment & Plan: She is on chronic treatment with Metoprolol and Lisinopril. These have been restarted with hold parameters. BPs have been stable. (6) Depression Status: Chronic Assessment & Plan: She is on chronic treatment with escitalopram. (7) History of TIAs Status: Resolved Assessment & Plan: She is on chronic treatment with Xarelto. (8) Dementia Status: Chronic (9) Tremor Status: Chronic Exam Sepsis Risk: No Definite Risk Problem Qualifiers (1) Concussion: Encounter type: initial encounter Loss of consciousness presence/duration: with LOC of unspecified duration Qualified Codes: S06.0X9A - Concussion with loss of consciousness of unspecified duration, initial encounter (2) HTN (hypertension): Hypertension type: essential hypertension Qualified Codes: I10 - Essential (primary) hypertension FITZ DAVID MD Apr 15, 2018 15:00
[2018-04-15] MEDS: methylPREDNIS SUCC 125 MG/2ML IVP SCH (16:28)
[2018-04-15] MEDS: ALBUTEROL/IPRATROPIUM 3 ML NEB NEB PRN (16:49)
--- NOTE | 2018-04-15 16:53 | RADIOLOGY IMAGING REPORT ---
FACILITY: [facility] [place] PATIENT NAME: Rosamaria Jo : 1940 MR: [id number] V: [id number] EXAM DATE: ORDERING PHYSICIAN: FITZ DAVID TECHNOLOGIST: Location: [facility] [place] Patient: Rosamaria Jo : 1940 Visit/Account:[id number] Date of Sevice: 04/15/2018 CHEST W W/O CONTRAST History: Abnormal right hilum on CXR ADDITIONAL CLINICAL HISTORY: None TECHNIQUE: Contiguous axial images were performed through the chest to the level of the adrenal gla nds with and without IV contrast. Coronal and sagittal reformatting was also performed. Dose Loweri ng Technique One of the following dose optimization techniques was utilized in the performance of this exam: Autom ated exposure control; adjustment of the mA and/or kV according to the patient's size; or use of an i terative reconstruction technique. Specific details can be referenced in the facility's radiology C T exam operational policy. Contrast: 75 mL Isovue-370 COMPARISON STUDIES: CTA chest October 04, 2017. Lungs / Pleura: There is diffuse centrilobular emphysema seen throughout the lungs Chronic appearing atelectasis in the right middle lobe is slightly less prominent. Traction bronchie ctasis again noted. There are tiny bilateral pleural effusions Mediastinum/nodes: negative. Heart and vessels: The pulmonary trunk and main pulmonary arteries are dilated. The right pulmonary trunk is more dilated than the left which apparently accounted for the recent chest radiographic fin dings. Musculoskeletal / Body wall: S-shaped scoliosis of the thoracic spine with spondylotic changes. Is a hemangioma involving the T10 vertebral body Upper abdomen: Diffuse hepatic steatosis IMPRESSION: There are dilated main pulmonary arteries, right greater than left likely accounting for the recent r adiographic findings Severe centrilobular emphysema throughout the lungs Chronic appearing atelectasis with traction bronchiectasis in the right middle lobe appears slightly less prominent Tiny bilateral pleural effusions Chronic findings as described Report Dictated By: Katie Rockewll MD at 04/15/2018 4:39 PM Report E-Signed By: Katie Rockwell MD at 04/15/2018 4:48 PM WSN:[email or web address]
[2018-04-15 20:40] VITALS: BP 137/69
[2018-04-15] MEDS: SALMETEROL/FLUTIC 250/50 1 INH INH SCH (21:00)
[2018-04-16] MEDS: methylPREDNIS SUCC 125 MG/2ML IVP SCH (01:25)
[2018-04-16 03:23] VITALS: BP 121/69
[2018-04-16] MEDS ORDERED: NS(*) 0.9% 1000 ML BAG 1,000 ML IV PRN (08:30)
[2018-04-16 08:37] VITALS: BP 152/93
[2018-04-16] MEDS: METOPROLOL SUCC XL 50 MG TABCR 50 MG TAB.ER.24H PO SCH (08:47)
[2018-04-16] MEDS: buPROPion IR 75 MG TAB PO SCH (08:48)
[2018-04-16] MEDS: LISINOPRIL 20 MG TAB PO SCH (08:48)
[2018-04-16] MEDS: ESCITALOPRAM OXALATE 10 MG TAB PO SCH (08:48)
[2018-04-16] MEDS: predniSONE 20 MG TAB PO SCH (08:49)
[2018-04-16] MEDS: RIVAROXABAN 10 MG TAB PO SCH (08:50)
[2018-04-16] MEDS: OFLOXACIN 0.3% OP SOLN 5ML BTL OD SCH (08:52)
[2018-04-16] MEDS: prednisoLONE ACE 1% OP 5ML BTL OS SCH ×4 (08:52→20:31)
[2018-04-16] MEDS: ALBUTEROL/IPRATROPIUM 3 ML NEB NEB SCH ×3 (08:54→17:16)
[2018-04-16 08:59] VITALS: Ht 157.5 cm; Wt 42.6 kg
--- NOTE | 2018-04-16 10:23 | Hospitalist Progress Note ---
Subjective Progress Notes Subjective This patient was admitted after a fall. She had no acute events overnight. Nursing reports that her oxygen requirements increase significantly with any exertion. Patient Complains of: Cardiovascular: No: Chest Pain Respiratory: No: Shortness of Breath Physical Exam Vital Signs Date Time Temp Pulse Resp B/P (MAP) Pulse Ox O2 Delivery O2 Flow Rate FiO2 04/16/18 09:02 70 04/16/18 08:54 93 High-Flow Nasal Cannula 4.0 04/16/18 08:54 16 04/16/18 08:37 97.8 152/93 (112) Intake and Output 04/16/18 07:00 Intake Total 240 ml Balance 240 ml Intake Oral 240 ml # Voids 2 Cardiovascular: Regular Rate and Rhythm Respiratory: Other (Bilateral wheezing present.) Result Diagram: 04/15/1854604/15/[address] chest reviewed. Assessment and Plan Problems: (1) COPD exacerbation Assessment & Plan: She does have intermittent increased oxygen demands. Her chest x-ray and CT scan have shown changes consistent with COPD. She was given IV steroids yesterday. We have converted her to prednisone and started sche duled nebulizers today. (2) Concussion Status: Acute Assessment & Plan: She appears to have had a concussion in a fall at [facility]. She had nausea, which has now resolved. A CT scan of the head was negative for intracranial injury. (3) Acute blood loss anemia Status: Acute Assessment & Plan: Her hemoglobin dropped significantly to 7.0 from 12.4. She was transfused 2 units on 04/13. Her Hgb increased appropriately. (4) Weakness Status: Acute Assessment & Plan: She is working with PT and OT. (5) HTN (hypertension) Status: Chronic Assessment & Plan: She is on chronic treatment with Metoprolol and Lisinopril. These have been restarted with hold parameters. BPs have been stable. (6) Depression Status: Chronic Assessment & Plan: She is on chronic treatment with escitalopram. (7) History of TIAs Status: Resolved Assessment & Plan: She is on chronic treatment with Xarelto. (8) Dementia Status: Chronic (9) Tremor Status: Chronic Exam Sepsis Risk: No Definite Risk Problem Qualifiers (1) Concussion: Encounter type: initial encounter Loss of consciousness presence/duration: with LOC of unspecified duration Qualified Codes: S06.0X9A - Concussion with loss of consciousness of unspecified duration, initial encounter (2) HTN (hypertension): Hypertension type: essential hypertension Qualified Codes: I10 - Essential ( primary) hypertension PAZ SOTO DO Apr 16, 2018 10:23
[2018-04-16 11:22] VITALS: BP 135/78
[2018-04-16] MEDS ORDERED: PATIENT'S OWN MED OS SCH (13:00)
[2018-04-16] MEDS: KETOROLAC TROM 0.5% OP 3 ML BTL OS SCH ×3 (13:32→20:33)
[2018-04-16] MEDS: OFLOXACIN 0.3% OP SOLN 5ML BTL OS SCH ×3 (14:02→20:29)
[2018-04-16 17:10] VITALS: BP 140/64
[2018-04-16] MEDS: SALMETEROL/FLUTIC 250/50 1 INH INH SCH (21:00)
[2018-04-17 02:15] VITALS: BP 124/82
[2018-04-17] MEDS: ALBUTEROL/IPRATROPIUM 3 ML NEB NEB SCH ×3 (06:04→17:08)
[2018-04-17 07:47] VITALS: BP 130/79
[2018-04-17] MEDS ORDERED: FUROSEMIDE 20 MG TAB PO ONE (09:00)
[2018-04-17 09:15] LABS: PLATELET COUNT, AUTOMATED 153 K/uL (150-450)
[2018-04-17] MEDS: prednisoLONE ACE 1% OP 5ML BTL OS SCH ×3 (09:19→17:39)
[2018-04-17] MEDS: ESCITALOPRAM OXALATE 10 MG TAB PO SCH (09:20)
[2018-04-17] MEDS: LISINOPRIL 20 MG TAB PO SCH (09:21)
[2018-04-17] MEDS: predniSONE 20 MG TAB PO SCH (09:22)
[2018-04-17] MEDS: buPROPion IR 75 MG TAB PO SCH (09:22)
[2018-04-17] MEDS: METOPROLOL SUCC XL 50 MG TABCR 50 MG TAB.ER.24H PO SCH (09:23)
[2018-04-17] MEDS: OFLOXACIN 0.3% OP SOLN 5ML BTL OS SCH ×3 (09:27→17:44)
[2018-04-17] MEDS: RIVAROXABAN 10 MG TAB PO SCH (09:27)
[2018-04-17] MEDS: KETOROLAC TROM 0.5% OP 3 ML BTL OS SCH ×4 (09:34→20:42)
[2018-04-17 09:35] VITALS: BP 131/86
--- NOTE | 2018-04-17 09:54 | Hospitalist Progress Note ---
Subjective Progress Notes Subjective She has complaints of SOB this morning. Her oxygen usage has increased recently. Patient Complains of: Cardiovascular: No: Chest Pain Respiratory: Shortness of Breath Physical Exam Vital Signs Date Time Temp Pulse Resp B/P (MAP) Pulse Ox O2 Delivery O2 Flow Rate FiO2 04/17/18 09:35 131/86 (101) 04/17/18 07:47 94 High-Flow Nasal Cannula 6.0 04/17/18 07:47 97.5 78 16 Intake and Output 04/17/18 07:00 Intake Total 962 ml Output Total 350 ml Balance 612 ml Intake Oral 962 ml Output Urine Total 350 ml # Voids 3 # Bowel Movements 2 General Appearance: Alert, Awake, No Acute Distress, Afebrile Neuro: No Gross deficits Cardiovascular: Regular Rate and Rhythm Respiratory: No Respiratory Distress, Other (diminished lung sounds) GI: Soft and Non-Tender Extremities: Warm, Perfused; No Edema Psych: Alert & Oriented X3, Appropriate Mood & Affect Result Diagram: 04/17/1890704/17/18907 Assessment and Plan Problems: (1) COPD exacerbation Assessment & Plan: She does have intermittent increased oxygen demands. Her chest x-ray and CT scan have shown changes consistent with COPD. She was given IV steroids yesterday. We have converted her to prednisone and started scheduled nebulizers. Echo and BNP pending for today to assess if SOB could be from fluid overload. (2) Concussion Status: Acute Assessment & Plan: She appears to have had a concussion in a fall at [facility]. She had nausea, which has now resolved. A CT scan of the head was negative for intracranial injury. (3) Acute blood loss anemia Status: Acute Assessment & Plan: Her hemoglobin dropped significantly to 7.0 from 12.4. She was transfused 2 units on 04/13. Her Hgb increased appropriately. (4) Weakness Status: Acute Assessment & Plan: She is working with PT and OT. Recommendation for acute rehab from PT. (5) HTN (hypertension) Status: Chronic Assessment & Plan: She is on chronic treatment with Metoprolol and Lisinopril. These have been restarted with hold parameters. BPs have been stable. (6) Depression Status: Chronic Assessment & Plan: She is on chronic treatment with escitalopram. (7) History of TIAs Status: Resolved Assessment & Plan: She is on chronic treatment with Xarelto. (8) Dementia Status: Chronic (9) Tremor Status: Chronic Exam Sepsis Risk: No Definite Risk Problem Qualifiers (1) Concussion: Encounter type: initial encounter Loss of consciousness presence/duration: with LOC of unspecified duration Qualified Codes: S06.0X9A - Concussion with loss of consciousness of unspecified duration, initial encounter (2) HTN (hypertension): Hypertension type: essential hypertension Qualified Codes: I10 - Essential (primary) hypertension MARKOS DYER WAXING MACHINE OPERATOR HELPER Apr 17, 2018 09:54
[2018-04-17] MEDS ORDERED: FUROSEMIDE 20 MG/2 ML VIAL IVP ONE (10:45)
[2018-04-17] MEDS ORDERED: POTASSIUM CHL 10 MEQ TABCR PO ONE (10:45)
[2018-04-17 11:27] VITALS: BP 141/78
[2018-04-17 19:57] VITALS: BP 121/79
[2018-04-17] MEDS: SALMETEROL/FLUTIC 250/50 1 INH INH SCH (20:04)
[2018-04-17] MEDS ORDERED: prednisoLONE ACE 1% OP 5ML BTL OS SCH (21:00)
[2018-04-17] MEDS ORDERED: OFLOXACIN 0.3% OP SOLN 5ML BTL OS SCH (21:00)
--- NOTE | 2018-04-17 21:09 | Miscellaneous Provider Note ---
Miscellaneous Provider Note Note Staff reported that at about 6:45pm the patient had an aspiration event on a hamburger. She has been trying to cough it up. The patient reports some increased SOB and no other complaints. Vital Signs Label Value Date Time Bedside Pulse Oximetry 96 % 04/17/181956 Blood Pressure Assessment 121/79 (93) 04/17/181956 Location Left Arm Position Sitting Respiratory Rate 24 bpm H 04/17/181956 Pulse 87 04/17/181956 Location Left Finger Patient Temperature 98.8 degrees F 04/17/181956 Temperature Source Oral 04/17/181956 Respiratory Rate 18 bpm 04/17/182003 Pulse 100 04/17/182003 Bedside Pulse Oximetry 95 % 04/17/181705 Respiratory Rate 15 bpm 04/17/181705 Pulse 77 04/17/181705 Item Value Date Time Oxygen Flow Rate 4.0 04/17/181956 Oxygen Flow Rate 4.0 04/17/181705 Lungs - clear, but not moving air as well into the left base. She has mild-mod dyspnea. The patient aspirated on hamburger during dinner. Lungs are clear, but decreased BS in the left base. Her O2 requirement is unchanged. She is coughing fairly well. She is a DNR/DNI. Will change her diet to a dysphagia 2, get a CXR in the morning to look for changes, and ask ST to evaluate after the weekend. ANDIE MORRIS MD Apr 17, 2018 21:09
[2018-04-18 04:58] VITALS: BP 124/83
[2018-04-18] MEDS: ALBUTEROL/IPRATROPIUM 3 ML NEB NEB SCH ×3 (05:30→16:58)
[2018-04-18 06:30] LABS: PLATELET COUNT, AUTOMATED 152 K/uL (150-450)
[2018-04-18] MEDS ORDERED: POTASSIUM CHL 20 MEQ TABCR PO ONE (10:20)
[2018-04-18] MEDS ORDERED: FUROSEMIDE 20 MG/2 ML VIAL IVP ONE (10:30)
[2018-04-18 10:55] VITALS: BP 138/90
--- NOTE | 2018-04-18 11:12 | RADIOLOGY IMAGING REPORT ---
FACILITY: [facility] PATIENT NAME: Rosamaria Jo : 1940 MR: [id number] V: [id number] EXAM DATE: ORDERING PHYSICIAN: ANDIE MORRIS TECHNOLOGIST: Location: [facility] - [place] Patient: Rosamaria Jo : 1940 Visit/Account:[id number] Date of Sevice: 04/18/2018 CHEST SINGLE AP INDICATION: aspiration COMPARISON: 04/15/2018 FINDINGS: Heart size within normal limits. There is no focal infiltrate or lobar consolidation. Bronchiectasis and scarring is noted within th e right middle lobe similar to recent CT scan. The lungs are hyperexpanded consistent with COPD There is no pneumothorax or pleural effusion. IMPRESSION: 1. No acute cardiopulmonary process. Stable COPD Report Dictated By: Geovanny Martinez at 04/18/2018 11:06 AM Report E-Signed By: Geovanny Martinez at 04/18/2018 11:08 AM WSN:[id number]
[2018-04-18] MEDS ORDERED: predniSONE 20 MG TAB ONE (11:51)
[2018-04-18] MEDS: METOPROLOL SUCC XL 50 MG TABCR 50 MG TAB.ER.24H PO SCH (11:52)
[2018-04-18] MEDS: ESCITALOPRAM OXALATE 10 MG TAB PO SCH (11:52)
[2018-04-18] MEDS: RIVAROXABAN 10 MG TAB PO SCH (11:53)
[2018-04-18] MEDS: LISINOPRIL 20 MG TAB PO SCH (11:53)
[2018-04-18] MEDS: predniSONE 20 MG TAB PO SCH (11:53)
[2018-04-18] MEDS: buPROPion IR 75 MG TAB PO SCH (11:53)
[2018-04-18] MEDS: KETOROLAC TROM 0.5% OP 3 ML BTL OS SCH ×4 (11:55→20:50)
--- NOTE | 2018-04-18 11:58 | Hospitalist Progress Note ---
Subjective Progress Notes Subjective 77F admitted with concussion and head laceration after fall. KATHARINE overnight, working with PT/OT, appears will need short term post acute stay before return to [facility]. Patient Complains of: Cardiovascular: No: Chest Pain Gastrointestinal: No Nausea, No Vomiting Physical Exam Vital Signs Date Time Temp Pulse Resp B/P (MAP) Pulse Ox O2 Delivery O2 Flow Rate FiO2 04/18/18 10:55 96.5 84 18 138/90 (106) 93 Nasal Cannula 5.0 Intake and Output 04/18/18 07:00 Intake Total 480 ml Balance 480 ml Intake Oral 480 ml # Voids 6 General Appearance: Alert, Awake, No Acute Distress Neuro: No Gross deficits Eyes: PERRLA ENT: Normal Neck: No Masses Cardiovascular: Normal Rhythm & Peripheral Pulses Respiratory: No Respiratory Distress GI: Soft and Non-Tender Musculoskeletal: No Weakness/Pain Integumentary: Skin Intact without Lesion / Mass Psych: Other (demented) Result Diagram: 04/18/1860504/18/18617 Assessment and Plan Problems: (1) COPD exacerbation Assessment & Plan: She does have intermittent increased oxygen demands. Her chest x-ray and CT scan have shown changes consistent with COPD. She was given IV steroids 04.15. We have converted her to prednisone and started scheduled nebulizers, will begin taper of steroid. Echo and BNP do not point to heart failure as cause of SOB. (2) Concussion Status: Acute Assessment & Plan: She appears to have had a concussion in a fall at [facility]. She had nausea, which has now resolved. A CT scan of the head was negative for intracranial injury. (3) Acute blood loss anemia Status: Acute Assessment & Plan: Her hemoglobin dropped significantly to 7.0 from 12.4. She was transfused 2 units on 04/13. Her Hgb increased appropriately and is stable. (4) Weakness Status: Acute Assessment & Plan: She is working with PT and OT. Recommendation for acute rehab from PT. (5) HTN (hypertension) Status: Chronic Assessment & Plan: She is on chronic treatment with Metoprolol and Lisinopril. These have been restarted with hold parameters. BPs have been stable. (6) Depression Status: Chronic Assessment & Plan: She is on chronic treatment with escitalopram. (7) History of TIAs Status: Resolved Assessment & Plan: She is on chronic treatment with Xarelto. (8) Dementia Status: Chronic (9) Tremor Status: Chronic Exam Sepsis Risk: No Definite Risk Problem Qualifiers (1) Concussion: Encounter type: initial encounter Loss of consciousness presence/duration: with LOC of unspecified duration Qualified Codes: S06.0X9A - Concussion with loss of consciousness of unspecified duration, initial encounter (2) HTN (hypertension): Hypertension type: essential hypertension Qualified Codes: I10 - Essential (primary) hypertension SCOTTY PARDO DO Apr 18, 2018 11:58
[2018-04-18 14:01] VITALS: BP 132/92
[2018-04-18] MEDS ORDERED: INFLUENZA VIRUS VAC 0.5ML SYR IM ONLY ONE (18:05)
[2018-04-18 19:29] VITALS: BP 126/80
[2018-04-18] MEDS: SALMETEROL/FLUTIC 250/50 1 INH INH SCH (21:06)
[2018-04-19 04:26] VITALS: BP 143/84
[2018-04-19] MEDS: ALBUTEROL/IPRATROPIUM 3 ML NEB NEB SCH ×3 (05:53→16:48)
[2018-04-19 08:21] VITALS: BP 136/85
[2018-04-19] MEDS: LISINOPRIL 20 MG TAB PO SCH (09:00)
[2018-04-19] MEDS: METOPROLOL SUCC XL 50 MG TABCR 50 MG TAB.ER.24H PO SCH (09:47)
[2018-04-19] MEDS: ESCITALOPRAM OXALATE 10 MG TAB PO SCH (09:48)
[2018-04-19] MEDS: RIVAROXABAN 10 MG TAB PO SCH (09:48)
[2018-04-19] MEDS: predniSONE 10 MG TAB PO SCH (09:48)
[2018-04-19] MEDS: buPROPion IR 75 MG TAB PO SCH (09:49)
[2018-04-19] MEDS: KETOROLAC TROM 0.5% OP 3 ML BTL OS SCH ×4 (09:49→21:27)
--- NOTE | 2018-04-19 10:07 | Hospitalist Progress Note ---
Subjective Progress Notes Subjective She denies SOB/CP. Staff increased O2 to 5 liters this morning. Physical Exam Vital Signs Date Time Temp Pulse Resp B/P (MAP) Pulse Ox O2 Delivery O2 Flow Rate FiO2 04/19/18 08:21 90 High-Flow Nasal Cannula 5.0 04/19/18 08:21 97.6 66 18 136/85 (102) Intake and Output 04/19/18 07:00 Intake Total 540 ml Balance 540 ml Intake Oral 540 ml # Voids 4 # Bowel Movements 3 General Appearance: Alert, Awake, No Acute Distress Respiratory: Clear to Auscultation (decreased BS bilaterally in bases) Extremities: No Edema Result Diagram: 04/18/18 0606 04/19/18 0647 Assessment and Plan Problems: (1) COPD exacerbation Assessment & Plan: She does have intermittent increased oxygen demands. Her chest x-ray and CT scan have shown changes consistent with COPD. She was given IV steroids 04.15. We have converted her to prednisone and started scheduled nebulizers, will begin taper of steroid. Echo and BNP do not point to heart failure as cause of SOB. (2) Concussion Status: Acute Assessment & Plan: She appears to have had a concussion in a fall at [facility]. She had nausea, which has now resolved. A CT scan of the head was negative for intracranial injury. [place] can come out in a couple of days. (3) Acute blood loss anemia Status: Acute Assessment & Plan: Her hemoglobin dropped significantly to 7.0 from 12.4. She was transfused 2 units on 04/13. Her Hgb increased appropriately and is stable. (4) Weakness Status: Acute Assessment & Plan: She is working with PT and OT. Recommendation for acute rehab from PT. (5) HTN (hypertension) Status: Chronic Assessment & Plan: She is on chronic treatment with Metoprolol and Lisinopril. These have been restarted with hold parameters. BPs have been stable. (6) Depression Status: Chronic Assessment & Plan: She is on chronic treatment with escitalopram. (7) History of TIAs Status: Resolved Assessment & Plan: She is on chronic treatment with Xarelto. (8) Dementia Status: Chronic (9) Tremor Status: Chronic Exam Sepsis Risk: No Definite Risk Problem Qualifiers (1) Concussion: Encounter type: initial encounter Loss of consciousness presence/duration: with LOC of unspecified duration Qualified Codes: S06.0X9A - Concussion with loss of consciousness of unspecified duration, initial encounter (2) HTN (hypertension): Hypertension type: essential hypertension Qualified Codes: I10 - Essential (primary) hypertension ANDIE MORRIS MD Apr 19, 2018 10:07
[2018-04-19 11:30] VITALS: BP 126/77
[2018-04-19 14:46] VITALS: BP 134/75
[2018-04-19 19:17] VITALS: BP 122/73
[2018-04-19] MEDS: SALMETEROL/FLUTIC 250/50 1 INH INH SCH (20:17)
[2018-04-20 02:20] VITALS: BP 157/101
[2018-04-20] MEDS: ALBUTEROL/IPRATROPIUM 3 ML NEB NEB SCH ×3 (05:33→17:48)
[2018-04-20] MEDS: ESCITALOPRAM OXALATE 10 MG TAB PO SCH (08:15)
[2018-04-20] MEDS: predniSONE 10 MG TAB PO SCH (08:15)
[2018-04-20] MEDS: RIVAROXABAN 10 MG TAB PO SCH (08:15)
[2018-04-20] MEDS: METOPROLOL SUCC XL 50 MG TABCR 50 MG TAB.ER.24H PO SCH (08:15)
[2018-04-20] MEDS: LISINOPRIL 20 MG TAB PO SCH (08:15)
[2018-04-20] MEDS: buPROPion IR 75 MG TAB PO SCH (08:16)
[2018-04-20] MEDS: KETOROLAC TROM 0.5% OP 3 ML BTL OS SCH ×4 (08:16→21:32)
[2018-04-20 08:20] VITALS: BP 155/96
--- NOTE | 2018-04-20 08:22 | Hospitalist Progress Note ---
Subjective Progress Notes Subjective She has no complaints this morning. She still does require increased oxygen usage with ambulation. Patient Complains of: Cardiovascular: No: Chest Pain Respiratory: No: Shortness of Breath Physical Exam Vital Signs Date Time Temp Pulse Resp B/P (MAP) Pulse Ox O2 Delivery O2 Flow Rate FiO2 04/20/18 05:36 70 16 04/20/18 05:30 97 High-Flow Nasal Cannula 4.0 04/20/18 02:20 97.9 157/101 (119) Intake and Output 04/20/18 07:00 Intake Total 682 ml Balance 682 ml Intake Oral 682 ml # Voids 4 # Bowel Movements 1 General Appearance: Alert, Awake, No Acute Distress, Afebrile Neuro: No Gross deficits Cardiovascular: Regular Rate and Rhythm Respiratory: No Respiratory Distress, Other (diminished breath sounds throughout) GI: Soft and Non-Tender Extremities: Warm, Perfused; No Edema Psych: Alert & Oriented X3, Appropriate Mood & Affect Result Diagram: 04/18/18 0606 04/19/18 0647 Assessment and Plan Problems: (1) COPD exacerbation Assessment & Plan: She does have intermittent increased oxygen demands. Her chest x-ray and CT scan have shown changes consistent with COPD. She was given IV steroids 04.15. We have converted her to prednisone and started scheduled nebulizers, will begin taper of steroid. She will get Advair increased to BID dosing today for COPD. Echo and BNP do not point to heart failure as cause of SOB. (2) Concussion Status: Acute Assessment & Plan: She appears to have had a concussion in a fall at [facility]. She had nausea, which has now resolved. A CT scan of the head was negative for intracranial injury. [place] can come out in a couple of days. (3) Acute blood loss anemia Status: Acute Assessment & Plan: Her hemoglobin dropped significantly to 7.0 from 12.4. She was transfused 2 units on 04/13. Her Hgb increased appropriately and is stable. (4) Weakness Status: Acute Assessment & Plan: She is working with PT and OT. Recommendation for acute rehab from PT. (5) HTN (hypertension) Status: Chronic Assessment & Plan: She is on chronic treatment with Metoprolol and Lisinopril. These have been restarted with hold parameters. BPs have been stable. (6) Depression Status: Chronic Assessment & Plan: She is on chronic treatment with escitalopram. (7) History of TIAs Status: Resolved Assessment & Plan: She is on chronic treatment with Xarelto. (8) Dementia Status: Chronic (9) Tremor Status: Chronic Exam Sepsis Risk: No Definite Risk Problem Qualifiers (1) Concussion: Encounter type: initial encounter Loss of consciousness presence/duration: with LOC of unspecified duration Qualified Codes: S06.0X9A - Concussion with loss of consciousness of unspecified duration, initial encounter (2) HTN (hypertension): Hypertension type: essential hypertension Qualified Codes: I10 - Essential (primary) hypertension MARKOS DYER CREDIT DEPARTMENT MANAGER Apr 20, 2018 08:22
--- NOTE | 2018-04-20 09:07 | SLP BEDSIDE SWALLOW EVALUATION ---
SPEECH THERAPY ASSESSMENT Ordering Provider: Nick Godoy MD Clinician: Miya Shin MS, CCC-TRUCKER Type of Assessment: Dysphagia Evaluation Patient: Rosamaria Jo : 1940, 77yrs Evaluation Date: 04/20/2018 BACKGROUND The patient is a 77yo female admitted to [facility] on 04/13/18 after experiencing an unwitnessed fall with loss of consciousness at [facility]. She acquired an inch long laceration on the back of her scalp, and appeared to present with a concussion in the ED. Pt w/ history of COPD and variable O2 requirements during course of hospitalization, ranging from 3.0 up to 8.0L via NC. After admission, the pt experienced a suspected aspiration event during her evening meal on 04/17/18. This occurred while consuming a bite of hamburger. A swallow evaluation was ordered to analyze swallow function and to make appropriate recommendations for dietary textures, compensatory swallow strategies, and safe medication administration. Primary Medical Diagnosis: Concussion Medical History: COPD, weakness, depression, TIAs, dementia, HTN Pain Scale (0-10): Patient w/ no reports of pain. LOC / Participation: alert, cooperative Follows instructions: requires intermittent repetition and direct modeling to execute commands Orientation: oriented to person, place, time of day, medical etiology/pathology. Disoriented to date. DYSPHAGIA ASSESSMENT Sialorrhea: No Xerostomia: Yes Supplemental Oxygen Use: Yes. 5L O2 via NC. Saturation levels varied between 85 and 93. Respiratory Rate: increased SOB, likely 2/2 period of apnea required to execute a swallow COPD Dx: Yes Pain with Swallow: Denies. Endorses some globus sensation. Oral Structure and Function: Oromotor exam was remarkable for lingual and mandibular weakness against resistance. Some lingual, labial, and mandibular tremors/shakiness observed at rest. Pt with upper dentures, natural bottom teeth. Hyolaryngeal elevation and excursion mildly reduced to palpation, but WFL relative to age and gender. Administered PO trials of thin liquids via cup and straw, pureed solids, soft solids, and regular solids. Pt was also analyzed with medication administration in conjunction with RN. Oromotor weakness resulted in oral phase impairments characterized by prolonged mastication, oral scatter, post-swallow oral residue, and execution of multiple swallows to clear oral cavity. Increased effort was noted during swallow execution with observable facial strain. PO trials were successfully tolerated w/ out overt s/sx of aspiration. However, pt w/ exhibited increased SOB and fluctuations in O2 sats during swallow execution and during mastication of solid textures. This may be due to period of apnea required to execute pharyngeal swallow vs possible sign of aspiration. Pt was encouraged to decrease bolus sizes, reduce rate of intake, and take regular rest breaks during PO intake 2/2 elevated O2 requirements. At this time, soft, moist textures (dysphagia II) are recommended to improve swallow efficiency and safety. Pt appears appropriate for tolerance of thin liquids. Of note, the pt exhibited some confusion to temporal concepts and difficulty executing verbal commands during assessment procedure. Further analysis of cognitive-linguistic status may be warranted due to recent concussion and past medical history of dementia, TIAs. ST ASSESSMENT SUMMARY Aspiration Risk: Aspiration Risk: mild to moderately increased 2/2 age, generalized weakness , compromised respiratory status. Speech Therapy Need ST will continue to provide patient/caregiver education re: safe swallow strategies to minimize risk for aspiration 2/[address] will provide pt instruction in exercises to improve strength and efficiency of swallow. Will consider completion of objective swallow study following instruction in compensatory techniques and improved respiratory stability. ST will continue to analyze cognitive communicative status to make appropriate recommendations for d/c. RECOMMENDATIONS 1. Diet: Dysphagia II (mechanically altered), thin liquids. 2. Medications: Whole, with thin liquids. Pt w/ no difficulty consuming 2-3 small pills at a time. 3. Compensatory Techniques: regular oral hygiene, upright positioning during PO intake, cues to consume small bites/sips, one bite/sip at a time, encourage rest breaks for respiration if SOB is observed. 4. Supervision with meals/snacks: Not warranted. Offer intermittent reminders for swallow safety and continue to monitor diet tolerance. 5. Complete further cognitive communicative assessment as appropriate. PLAN OF CARE Short Term Goals 1. Patient will receive education regarding safe swallow precautions and will provide verbal/visual demonstration of comprehension. 2. The patient will safely and efficiently tolerate regular diet, thin liquids, and whole medications with independent implementation of safe swallow strategies. Discharge Recommendation: Further rehab at [facility] Rehabilitation Prognosis: Good. Motivated to succeed. Thank you for this referral. Miya Shin M.S., [facility] Speech Therapist [*] ASAD
[2018-04-20 11:02] VITALS: BP 139/87
[2018-04-20] MEDS: SALMETEROL/FLUTIC 250/50 1 INH INH SCH ×2 (11:21→17:49)
[2018-04-20 19:13] VITALS: BP 132/67
[2018-04-21 03:52] VITALS: BP 130/75
[2018-04-21] MEDS: ALBUTEROL/IPRATROPIUM 3 ML NEB NEB SCH ×2 (05:55→11:15)
[2018-04-21] MEDS: SALMETEROL/FLUTIC 250/50 1 INH INH SCH (05:56)
[2018-04-21 07:33] VITALS: BP 138/84
[2018-04-21] MEDS: buPROPion IR 75 MG TAB PO SCH (09:01)
[2018-04-21] MEDS: KETOROLAC TROM 0.5% OP 3 ML BTL OS SCH ×2 (09:01→13:37)
[2018-04-21] MEDS: predniSONE 10 MG TAB PO SCH (09:02)
[2018-04-21] MEDS: ESCITALOPRAM OXALATE 10 MG TAB PO SCH (09:02)
[2018-04-21] MEDS: RIVAROXABAN 10 MG TAB PO SCH (09:02)
[2018-04-21] MEDS: LISINOPRIL 20 MG TAB PO SCH (09:02)
[2018-04-21] MEDS: METOPROLOL SUCC XL 50 MG TABCR 50 MG TAB.ER.24H PO SCH (09:02)
--- NOTE | 2018-04-21 09:47 | Hospitalist Progress Note ---
Subjective Progress Notes Subjective She has some complaints of SOB this morning. She required 10L of oxygen to ambulate to bathroom this morning. Patient Complains of: Cardiovascular: No: Chest Pain Respiratory: Shortness of Breath Physical Exam Vital Signs Date Time Temp Pulse Resp B/P (MAP) Pulse Ox O2 Delivery O2 Flow Rate FiO2 04/21/18 07:33 97.4 71 24 138/84 (102) 94 Nasal Cannula 4.0 Intake and Output 04/21/18 07:00 Intake Total 470 ml Balance 470 ml Intake Oral 470 ml # Voids 3 # Bowel Movements 1 General Appearance: Alert, Awake, No Acute Distress, Afebrile Neuro: No Gross deficits Cardiovascular: Regular Rate and Rhythm Respiratory: No Respiratory Distress, Other (diminished lung sounds throughout) GI: Soft and Non-Tender Psych: Alert & Oriented X3, Appropriate Mood & Affect Result Diagram: 04/18/1806 04/19/18 0647 Assessment and Plan Problems: (1) COPD exacerbation Assessment & Plan: She does have intermittent increased oxygen demands. Her chest x-ray and CT scan have shown changes consistent with COPD. She was given IV steroids 04.15. We have converted her to prednisone and started scheduled nebulizers, will begin taper of steroid. Her Advair increased to BID dosing for COPD. Echo and BNP do not point to heart failure as cause of SOB. (2) Concussion Status: Acute Assessment & Plan: She appears to have had a concussion in a fall at [facility]. She had nausea, which has now resolved. A CT scan of the head was negative for intracranial injury. [place] can come out in a couple of days. (3) Acute blood loss anemia Status: Acute Assessment & Plan: Her hemoglobin dropped significantly to 7.0 from 12.4. She was transfused 2 units on 04/13. Her Hgb increased appropriately and is stable. (4) Weakness Status: Acute Assessment & Plan: She is working with PT and OT. Recommendation for acute rehab from PT. (5) HTN (hypertension) Status: Chronic Assessment & Plan: She is on chronic treatment with Metoprolol and Lisinopril. These have been restarted with hold parameters. BPs have been stable. (6) Depression Status: Chronic Assessment & Plan: She is on chronic treatment with escitalopram. (7) History of TIAs Status: Resolved Assessment & Plan: She is on chronic treatment with Xarelto. (8) Dementia Status: Chronic (9) Tremor Status: Chronic Exam Sepsis Risk: No Definite Risk Problem Qualifiers (1) Concussion: Encounter type: initial encounter Loss of consciousness presence/duration: with LOC of unspecified duration Qualified Codes: S06.0X9A - Concussion with loss of consciousness of unspecified duration, initial encounter (2) HTN (hypertension): Hypertension type: essential hypertension Qualified Codes: I10 - Essential (primary) hypertension MARKOS DYERP Apr 21, 2018 09:47
[2018-04-21 10:14] VITALS: BP 127/81
--- NOTE | 2018-04-21 12:38 | Medical Nutrition Therapy ---
Nutrition Anthropometrics Height (Inches): 62.00 Height (Calculated Centimeters: 157.354809 Weight (Pounds): 94 Weight (Calculated Kilograms): 42.864 BMI: 17.3 Pedro Nutrition Score: Adequate Pedro Nutrition Risk Score: 18 Dietary Referral Nutrition Risk Factors: Nutrition Risk Comment: Physical Findings Physical Appearance: Underweight BMI<19 Skin Appearance Skin Appearance: Edema Edema Location Modifier: Edema Location: Type of Edema: Degree of Edema: Gastrointestinal Symptoms GI Symtoms: Diarrhea, Change in Bowel Pattern Tube Present: Bowel Sounds: Recent Bowel Pattern: Stool Characteristics: Nutritional Diagnosis Nutritional Risk Acuity 2: Unintended Wt Loss >5%/mo, Swallowing Problem Nutritional Risk Acuity 3: Nutrit Anemia, COPD Unstable Nutritional Risk Acuity 4: Modified Diet Past Medical History: Hx of COPD, HTN, TIA, Depression, Dementia, and tremor. Nutritional Acuity: 2-Moderate Nutrition Diagnosis: Inadequate Food Intake Nutrition Etiology: Physiological Causes Nutrition Problem/Etiology/Sym: Inadequate food intake, as related to physiological causes, as evidenced by 6.4% weight loss and BMI of 17.3. Energy Requirement: 1200 (2324-8054 Kcal for wt gain ([place], AF 1.3)) Protein Requirement: 54 (1.3g/kg) Fluid Requirement: 1260 (30ml/kg) Diet Type: Dysphagia Stage 2 Nutrition Intervention: Incr diet as tolerated Diet Comment To RSA: OFFER NUTR SUPPLEMENT or protein fortified milkshakes Nutrition Monitoring & Eval RD Patient Assessment Time: [address] Assessment Type: RD Assessment Patient Nutrition Acuity: 2-Moderate Follow Up Date: Apr 24, 2018 Nutritional Comment: 04/16. Pt now experiencing dyspnea, acute blood loss anemia, and cont nausea. Pt cont on JUSTIN, consuming 25-100% of small and regular sized meals. Observed pt tends to refuse enusre. Recommend offering the protein fortified milksahkes as pt seems to enjoy them. Will cont to monitor. MR 04/21. Pt now being treated for COPD exacerbation in addition to prior diagnosis. Noted on 04/17, pt aspirated on hamburger during dinner. Pt completed a swallowing evaluation, which suggested pt be placed on dysphagia 2 diet. Soft moist textures are recommended, pt tolerates thin liquids well. Pt has consumed 50-100% of meals on dysphagia 2 diet. Observed a 6.4% weight loss since admission. Pt was 101lbs on 04/13, and had a weight of 94.5 lbs on 04/20. Pt now has an underweight BMI of 17.3. Recommend nutritional supplement to increase intake of calories and protein to meet pt needs. Recommedn pt consum 2969-5430 kcal and 54g of protein each day. Increase diet as tolerated. JENSEN ROBBINS Apr 21, 2018 08:37
--- NOTE | 2018-04-21 15:48 | Hospitalist Depart ---
Discharge Summary Reason for Hosp/Final Diag: (1) COPD exacerbation Hospital Course & Plan: She does have intermittent increased oxygen demands. Her chest x-ray and CT scan have shown changes consistent with COPD. She was given IV steroids 04.15. We have converted her to prednisone and started scheduled nebulizers, will begin taper of steroid. Her Advair increased to BID dosing for COPD. Echo and BNP do not point to heart failure as cause of SOB. (2) Concussion Status: Acute Hospital Course & Plan: She appears to have had a concussion in a fall at [facility]. She had nausea, which has now resolved. A CT scan of the head was negative for intracranial injury. Elena can come out in a couple of days. (3) Acute blood loss anemia Status: Acute Hospital Course & Plan: Her hemoglobin dropped significantly to 7.0 from 12.4. She was transfused 2 units on 04/13. Her Hgb increased appropriately and is stable. (4) Weakness Status: Acute Hospital Course & Plan: She is working with PT and OT. Recommendation for acute rehab from PT. She will be transferred to [facility] for further rehab, before returning to [facility]. (5) HTN (hypertension) Status: Chronic Hospital Course & Plan: She is on chronic treatment with Metoprolol and Lisinopril. These have been restarted with hold parameters. BPs have been stable. (6) Depression Status: Chronic Hospital Course & Plan: She is on chronic treatment with escitalopram. (7) History of TIAs Status: Resolved Hospital Course & Plan: She is on chronic treatment with Xarelto. (8) Dementia Status: Chronic (9) Tremor Status: Chronic Departure Latest Vital Signs Vital Signs 04/21/18 04/21/18 10:14 11:20 Temp 97.5 Pulse 71 Resp 18 B/P (MAP) 127/81 (96) Pulse Ox 94 O2 Delivery High-Flow Nasal Cannula O2 Flow Rate 3.0 Weight (Pounds): 94 Weight (Ounces): 8.0 Result Diagram: 04/18/18 0606 04/19/18 0647 Condition: Improved Discharge: [facility] PT/OT Follow Up For: PT Evaluation and Treat, OT Evaluation and Treat Discharge Instructions Home Meds Active Scripts Wheat Dextrin (BENEFIBER) 1 Each Powd.pack, 1 EACH PO QDAY for 90 Days, #90 PACKET Prov:MEGHA HEART MD 04/07/18 Bupropion Hcl (BUPROPION HCL) 75 Mg Tablet, 1 TAB PO QDAY for 90 Days, #90 TAB 1 Refill Prov:MEGHA HEART MD 04/06/18 Lisinopril (LISINOPRIL) 20 Mg Tablet, 1 TAB PO QDAY for 90 Days, #90 TAB 4 Refills Prov:MEGHA HEART MD 04/06/18 Rivaroxaban 15 Mg (XARELTO 15 MG) 15 Mg Tablet, 15 MG PO DAILY for 90 Days, #90 TAB Prov:MEGHA HEART MD 03/01/18 Escitalopram Oxalate (ESCITALOPRAM OXALATE) 10 Mg Tablet, 10 MG PO QDAY for 90 Days, #90 TAB 4 Refills Prov:MEGHA HEART MD 12/30/17 Reported Medications Guaifenesin/Dextromethorphan (Robitussin Cough-Chest Dm Liq) Unknown Strength Liquid, PO Q4-6H PRN for COUGH Robitussin-DM or generic equivalent. Take 5ml every 4-6 hours PRN for complaints of cough 04/13/18 Mag Hydrox/Aluminum Hyd/Simeth (Maalox Advanced Suspension) Unknown Strength Oral.susp, PO PRN for GAS/HEARTBURN Riopan, Maalox, or generic equivalent. 15 ml every 4 hours PRN for complaints of gastric distress. 04/13/18 L.acidoph & Paracasei,B.lactis (Probiotic) 1 Each Capsule, PO QDAY 04/13/18 Prednisolone Acetate (PRED FORTE) 1 Ml Drops.susp, 0 OS QID starting 04/03/18. instill one drop into left eye four times a day for two weeks starting after surgery 04/13/18 Oxygen (OXYGEN) Inha, 4 L INH, L continuous. Titrate to keep O2 sats between 88-95% 04/13/18 Ofloxacin (Ofloxacin) Unknown Strength Drops, OS QID Starting 04/03/18. instill one drop into left eye four times daily for two weeks following surgery 04/13/18 Magnesium Hydroxide (MILK OF MAGNESIA) 400 Mg/5 Ml Oral.susp, PO QDAY PRN for CONSTIPATION, BOTTLE 04/13/18 Metoprolol Succinate (METOPROLOL SUCCINATE) 50 Mg Tab.er.24h, 1 TAB PO HS, TAB 04/13/18 [ketorolac ] Unknown Strength No Conflict Check, OS QID Starting 04/03/18- instill 1 eye drop into left eye QID for 6 weeks following surgery 04/13/18 Aspirin (ASPIRIN) 325 Mg Tablet, 325 MG PO ONCE PRN for PAIN, TAB 04/13/18 Acetaminophen (TYLENOL) 325 Mg Tablet, 325-650 MG PO Q4H PRN for PAIN, TAB 04/13/18 Lactose-Reduced Food (Ensure Original) 237 Ml Liquid, 1 BOTTLE PO BID PRN for prn 12/30/17 Ca Carbonate/Vitamin D3/Vit K (CALCIUM + D SOFT CHEWABLE TAB) 1 Each Tab.chew, 1 TAB.CHEW PO DAILY, TAB.CHEW 12/30/17 Fluticasone/Salmeterol (ADVAIR 250-50 DISKUS) 1 Each Disk.w.dev, 1 PUFF IH HS 12/30/17 Calcium Carb/Vit D3/Minerals (CALCIUM +D & MINERALS CHEW TAB) 1 Each Tab.chew, 1 EACH PO DAILY, TAB.CHEW 01/12/16 Multivits-Min/Iron/FA/Lutein (Centrum Silver Women Tablet) 1 Each Tablet, 1 TAB PO DAILY 01/12/16 Diet: Regular Activity: As Tolerated, With Walker Copies to: MEGHA HEART MD ; Venous Thromboembolism Antithrombotics Is Pt On Any Antithrombotics?: Yes Problem Qualifiers (1) Concussion: Encounter type: initial encounter Loss of consciousness presence/duration: with LOC of unspecified duration Qualified Codes: S06.0X9A - Concussion with loss of consciousness of unspecified duration, initial encounter (2) HTN (hypertension): Hypertension type: essential hypertension Qualified Codes: I10 - Essential (primary) hypertension MARKOS DYER LOW PRESSURE FIRER Apr 21, 2018 15:48
[2018-04-21 16:18] VITALS: BP 125/72
== END 2018-04-21 16:45 | DRG 89 ==
LOC: ER 01:51 → MED 06:07 → INTOOBSV 06:07 → OBSVTOIN 04-14
PROVIDERS: ADMIT Internal Medicine; ATTEND Internal Medicine
PROC: 0HQ0XZZ Repair Scalp Skin, External Approach (ICD-10-PCS; principal; 2018-04-14)
PROC: 30233N1 Transfusion of Nonautologous Red Blood Cells into Peripheral Vein, Percutaneous Approach (ICD-10-PCS; 2018-04-14)
DX: S06.0X9A Concussion with loss of consciousness of unspecified duration, initial encounter (principal); J44.1 Chronic obstructive pulmonary disease with (acute) exacerbation; D62 Acute posthemorrhagic anemia; S01.01XA Laceration without foreign body of scalp, initial encounter; I10 Essential (primary) hypertension; R53.1 Weakness; Z66 Do not resuscitate; F32.9 Major depressive disorder, single episode, unspecified; F03.90 Unspecified dementia, unspecified severity, without behavioral disturbance, psychotic disturbance, mood disturbance, and anxiety; R25.1 Tremor, unspecified; F17.210 Nicotine dependence, cigarettes, uncomplicated; W19.XXXA Unspecified fall, initial encounter; W22.8XXA Striking against or struck by other objects, initial encounter; Y92.099 Unspecified place in other non-institutional residence as the place of occurrence of the external cause; Y99.8 Other external cause status; Z79.01 Long term (current) use of anticoagulants; Z23 Encounter for immunization; Z86.73 Personal history of transient ischemic attack (TIA), and cerebral infarction without residual deficits; Z99.81 Dependence on supplemental oxygen
CPT/HCPCS: 36415; 36416; 70450; 71045; 71270; 72125; 82040; 82247; 82310; 82374; 82435; 82565; 82947; 82948; 83880; 84075; 84132; 84155; 84295; 84443; 84450; 84460; 84520; 85025; 85610; 85730; 86850; 86900; 86901; 86920; 90471; 90674; 94640; 96360; 96361; 97161; 97166; 99284; C8929; G0378; J1940; J2405; J2930; J7030; J7040; J7512; P9016; Q9957; Q9967

== ENCOUNTER → 2018-04-13 | Outpatient (CLI) | payer MEDICARE ==
[2017-10-05 08:54] VITALS: BMI 18.6
[~2018-04-13] MED LIST changes: +ACET-1966 PO; +ASPI-757 PO; +GUAI237L21 PO; +L.AC1CAP6 PO; +MAG-65 PO; +MOM PO; +OFLO5DRO41 OS; +PRED1DRO2 OS; +WHEA1POW10 PO; +ketorolac OS
== END ==
LOC: AMB 01:26
PROVIDERS: ATTEND Nurse Practitioner
DX: S01.01XA Laceration without foreign body of scalp, initial encounter (principal); W01.190A Fall on same level from slipping, tripping and stumbling with subsequent striking against furniture, initial encounter
CPT/HCPCS: A0425; A0427

== ENCOUNTER → 2018-04-14 | Outpatient (CLI) | payer MEDICARE ==
[2017-10-05 08:54] VITALS: BMI 18.6
[~2018-04-14] MED LIST changes: +ACET-1966 PO; +ASPI-757 PO; +GUAI237L21 PO; +L.AC1CAP6 PO; +MAG-65 PO; +MOM PO; +OFLO5DRO41 OS; +PRED1DRO2 OS; +ketorolac OS
== END ==
LOC: ZZSPRING 06:00
PROVIDERS: ATTEND Family Medicine
DX: R53.83 Other fatigue (principal); J44.1 Chronic obstructive pulmonary disease with (acute) exacerbation; E11.9 Type 2 diabetes mellitus without complications; F32.9 Major depressive disorder, single episode, unspecified; N18.9 Chronic kidney disease, unspecified; F03.90 Unspecified dementia, unspecified severity, without behavioral disturbance, psychotic disturbance, mood disturbance, and anxiety; R25.1 Tremor, unspecified; E87.6 Hypokalemia; D61.818 Other pancytopenia; I12.9 Hypertensive chronic kidney disease with stage 1 through stage 4 chronic kidney disease, or unspecified chronic kidney disease
CPT/HCPCS: 84443

== ENCOUNTER 2018-04-21 16:48 | Inpatient (IN) | payer MEDICARE ==
[2017-10-05 08:54] VITALS: Ht 157.5 cm; Wt 44.5 kg
[~2018-04-21] VITALS: Ht 157.5 cm; Wt 44.5 kg
[2018-04-21 16:35] VITALS: BP 138/82
[2018-04-21] MEDS ORDERED: predniSONE 10 MG TAB PO SCH (16:57)
[2018-04-21] MEDS ORDERED: MAGNESIUM HYDROXIDE* 30ML UDCP PO PRN (16:57)
[2018-04-21] MEDS: KETOROLAC TROM 0.5% OP 3 ML BTL OS SCH ×2 (17:00→21:00)
--- NOTE | 2018-04-21 17:14 | ECF H&P BLANK ---
[facility] H&P UPDATE History of Present Illness Chief Complaint Fall History of Present Illness She is a 77-year-old female, who presented to the emergency department after an unwitnessed fall. She is a resident of [facility], and there was blood on the floor from where she hit the back of her head. She is on Xarelto, and had brisk bleeding. They note an inch long laceration on the back of her scalp that they cannot stop the bleeding. She is also dizzy, and having nausea. Patient denies headache but she does continue to feel dizzy and is nauseous. She denies any other injury other than a little bit of neck pain. She denies any back pain. No pain in the extremities. She denies chest pain or shortness of breath. She was recommended for admission secondary to dizziness and inability to ambulate. History Problems: (1) COPD (chronic obstructive pulmonary disease) Status: Chronic (2) Depression Status: Chronic (3) HTN (hypertension) Status: Chronic (4) Dementia Status: Chronic (5) Tremor Status: Chronic Home Meds Active Scripts Wheat Dextrin (BENEFIBER) 1 Each Powd.pack, 1 EACH PO QDAY for 90 Days, #90 PACKET Prov:MEGHA HEART MD 04/07/18 Bupropion Hcl (BUPROPION HCL) 75 Mg Tablet, 1 TAB PO QDAY for 90 Days, #90 TAB 1 Refill Prov:MEGHA HEART MD 04/06/18 Lisinopril (LISINOPRIL) 20 Mg Tablet, 1 TAB PO QDAY for 90 Days, #90 TAB 4 Refills Prov:MEGHA HEART MD 04/06/18 Rivaroxaban 15 Mg (XARELTO 15 MG) 15 Mg Tablet, 15 MG PO DAILY for 90 Days, #90 TAB Prov:MEGHA HEART MD 03/01/18 Escitalopram Oxalate (ESCITALOPRAM OXALATE) 10 Mg Tablet, 10 MG PO QDAY for 90 Days, #90 TAB 4 Refills Prov:MEGHA HEART MD 12/30/17 Reported Medications Guaifenesin/Dextromethorphan (Robitussin Cough-Chest Dm Liq) Unknown Strength Liquid, PO Q4-6H PRN for COUGH Robitussin-DM or generic equivalent. Take 5ml every 4-6 hours PRN for complaints of cough 04/13/18 Mag Hydrox/Aluminum Hyd/Simeth (Maalox Advanced Suspension) Unknown Strength Oral.susp, PO PRN for GAS/HEARTBURN Riopan, Maalox, or generic equivalent. 15 ml every 4 hours PRN for complaints of gastric distress. 04/13/18 L.acidoph & Paracasei,B.lactis (Probiotic) 1 Each Capsule, PO QDAY 04/13/18 Prednisolone Acetate (PRED FORTE) 1 Ml Drops.susp, 0 OS QID starting 04/03/18. instill one drop into left eye four times a day for two weeks starting after surgery 04/13/18 Oxygen (OXYGEN) Inha, 4 L INH, L continuous. Titrate to keep O2 sats between 88-95% 04/13/18 Ofloxacin (Ofloxacin) Unknown Strength Drops, OS QID Starting 04/03/18. instill one drop into left eye four times daily for two weeks following surgery 04/13/18 Magnesium Hydroxide (MILK OF MAGNESIA) 400 Mg/5 Ml Oral.susp, PO QDAY PRN for CONSTIPATION, BOTTLE 04/13/18 Metoprolol Succinate (METOPROLOL SUCCINATE) 50 Mg Tab.er.24h, 1 TAB PO HS, TAB 04/13/18 [ketorolac ] Unknown Strength No Conflict Check, OS QID Starting 04/03/18- instill 1 eye drop into left eye QID for 6 weeks following surgery 04/13/18 Aspirin (ASPIRIN) 325 Mg Tablet, 325 MG PO ONCE PRN for PAIN, TAB 04/13/18 Acetaminophen (TYLENOL) 325 Mg Tablet, 325-650 MG PO Q4H PRN for PAIN, TAB 04/13/18 Lactose-Reduced Food (Ensure Original) 237 Ml Liquid, 1 BOTTLE PO BID PRN for prn 12/30/17 Ca Carbonate/Vitamin D3/Vit K (CALCIUM + D SOFT CHEWABLE TAB) 1 Each Tab.chew, 1 TAB.CHEW PO DAILY, TAB.CHEW 12/30/17 Fluticasone/Salmeterol (ADVAIR 250-50 DISKUS) 1 Each Disk.w.dev, 1 PUFF IH HS 12/30/17 Calcium Carb/Vit D3/Minerals (CALCIUM +D & MINERALS CHEW TAB) 1 Each Tab.chew, 1 EACH PO DAILY, TAB.CHEW 01/12/16 Multivits-Min/Iron/FA/Lutein (Centrum Silver Women Tablet) 1 Each Tablet, 1 TAB PO DAILY 01/12/16 Discontinued Reported Medications Metformin Hcl (METFORMIN HCL) 500 Mg Tablet, 1 TAB PO BID, TAB 04/02/18 Oxygen (OXYGEN) Inha, 2.5-3 L INH, L 01/27/18 Glycerin/Propylene Glycol (ARTIFICIAL TEARS DROPS) 30 Ml Drops, 1 DROP OP TID 12/30/17 Discontinued Scripts Metoprolol Succinate (METOPROLOL SUCCINATE) 50 Mg Tab.er.24h, 1 TAB PO QDAY for 90 Days, #90 TAB Decrease from 100mg daily to 50mg daily Prov:MEGHA HEART MD 03/01/18 Allergies: Coded Allergies: No Known Drug Allergies (Unverified , 10/04/17) Hx Smoking: No Smoking Status: Former Smoker When Quit Tobacco?: 3 months ago Caffeine Intake: Soda Caffeine/Cups Per Day: 1pd Hx Alcohol Use: No Hx Substance Use Disorder: No Social Drug Use: Never Review of Systems All Systems Reviewed/Normal: Yes, Except as Noted Neurological: Weakness Gastrointestinal: Nausea Exam Vital Signs Vital Signs Date Time Temp Pulse Resp B/P (MAP) Pulse Ox O2 Delivery O2 Flow Rate FiO2 04/13/18 08:42 97.9 66 26 87/57 (67) 100 Nasal Cannula 3.0 General Appearance: Alert, Awake, No Acute Distress, Afebrile Neuro: No Gross deficits Cardiovascular: Regular Rate and Rhythm Respiratory: No Respiratory Distress GI: Abd Soft and Non-Tender Extremities: Warm, Perfused; No Edema Psych: Alert & Oriented X3, Appropriate Mood & Affect Medical Decision Making Data Points Result Diagram: 04/13/1814004/13/18140 EKG / Imaging Imaging PATIENT NAME: Rosamaria Jo : 1940 MR: [id number] V: [id number] EXAM DATE: ORDERING PHYSICIAN: CHARLY CAVANAUGH TECHNOLOGIST: Location: [facility] Patient: Rosamaria Jo : 1940 Visit/Account:[id number] Date of Sevice: 04/13/2018 CT Head without contrast and CT Cervical spine: Indication: Fall, head injury. Comparison: None available Technique: CT head: Axial CT images were obtained through the brain from the skull base to the vertex without administration of IV contrast. Reformatted coronal and sagittal images were also obtained. Technique: CT cervical spine: Axial CT imaging of the cervical spine was performed. 2-D sagittal and coronal CT reformats were also obtained. One of the following dose optimization techniques was utilized in the performance of this exam: Automated exposure control; adjustment of the mA and/or kV according to the patient's size; or use of an iterative reconst ruction technique. Specific details can be referenced in the facility's radiology CT exam operational policy. FINDINGS: CT head: Right posterior scalp contusion with associated cutaneous deena. No fracture. No evidence of mass, mass effect, or midline shift. No acute intracranial hemorrhage or acute territorial infarction. Encephalomalacia in the left posterior cerebral artery distribution and bilateral MCA distribution consistent with remote infarcts. Remote lacunar infarcts in the right basal ganglia and bilateral cerebellar hemispheres. Moderate to large amount of white matter hypoattenuation consistent with chronic small vessel ischemic disease. Globes and orbits are nonacute. Lens surgery on the left. Small right sphenoid sinus retention cyst. CT cervical spine: No acute abnormality of cervical vertebral body height and alignment. No cervical spine fracture. There is no prevertebral soft tissue thickening. The intervertebral disc spaces are maintained. The spinal canal and neural foramina appear maintained at all levels. Remaining visualized cervical soft tissues are unremarkable. The airway is patent. Moderate emphysema in the lung apices. IMPRESSION: 1. No acute intracranial abnormality. 2. No acute osseous abnormality of the cervical spine. 3. Multifocal remote cerebral and cerebellar infarcts. Report Dictated By: Neptali Villarreal MD at 04/13/2018 3:18 AM Report E-Signed By: Neptali Villarreal MD at 04/13/2018 3:29 AM Pre-Admit Course Medical Record Review: Yes Assessment and Plan Problems: (1) COPD exacerbation Assessment & Plan: She does have intermittent increased oxygen demands. Her chest x-ray and CT scan have shown changes consistent with COPD. She was given IV steroids 04.15. We have converted her to prednisone and started scheduled nebulizers, will begin taper of steroid. Her Advair increased to BID dosing for COPD. Echo and BNP do not point to heart failure as cause of SOB. (2) Concussion Status: Acute Assessment & Plan: She appears to have had a concussion in a fall at [facility]. She had nausea, which has now resolved. A CT scan of the head was negative for intracranial injury. [place] can come out in a couple of days. (3) Acute blood loss anemia Status: Acute Assessment & Plan: Her hemoglobin dropped significantly to 7.0 from 12.4. She was transfused 2 units on 04/13. Her Hgb increased appropriately and is stable. (4) Weakness Status: Acute Assessment & Plan: She is working with PT and OT. Recommendation for acute rehab from PT. (5) HTN (hypertension) Status: Chronic Assessment & Plan: She is on chronic treatment with Metoprolol and Lisinopril. These have been restarted with hold parameters. BPs have been stable. (6) Depression Status: Chronic Assessment & Plan: She is on chronic treatment with escitalopram. (7) History of TIAs Status: Resolved Assessment & Plan: She is on chronic treatment with Xarelto. (8) Dementia Status: Chronic (9) Tremor Status: Chronic Venous Thromboembolism Antithrombotics Is Pt On Any Antithrombotics?: Yes Exam Sepsis Risk: No Definite Risk Problem Qualifiers (1) Concussion: Encounter type: initial encounter Loss of consciousness presence/duration: with LOC of unspecified duration Qualified Codes: S06.0X9A - Concussion with loss of consciousness of unspecified duration, initial encounter (2) HTN (hypertension): Hypertension type: essential hypertension Qualified Codes: I10 - Essential (primary) hypertension The above acute care issues are resolving and/or stable. Patient requires shelter and/or skilled rehabilitation and is ready for admission to Extended Care. Any change in condition is described below. MARKOS DYER Apr 21, 2018 17:14
[2018-04-21] MEDS: ALBUTEROL/IPRATROPIUM 3 ML NEB NEB SCH (17:24)
[2018-04-21] MEDS: SALMETEROL/FLUTIC 250/50 1 INH INH SCH (17:24)
--- NOTE | 2018-04-21 20:04 | Consultant Pharmacy Review ---
Medical Insurance Collector Review Medication Review Do All Mecications have a Diag: Yes Disease-Drug Interactions History of Falls/Fractures: SSRIs Drugs to Use With Caution Medications Which Cause SIADH: SSRIs Other General Cautions Lexicomp Interaction Analysis A = No known interaction C = Monitor therapy X = Avoid combination B = No action needed D = Consider therapy modification Drugs in this analysis: Acetaminophen; Acular; Advair (CAN); Albuterol; Centrum (SYN); Ipratropium (Nasal); Lactobacillus; Lexapro; Milk of Magnesia Concentrate [OTC]; Os-Rafael Calcium + D3 [OTC]; PredniSONE; Prinivil; Toprol XL; Wellbutrin [DSC]; Xarelto * Drug-Drug Interactions D Centrum (SYN) (Multivitamins/Minerals (with ADEK, Folate, Iron)) Milk of Magnesia Concentrate [OTC] (Antacids) D Centrum (SYN) (Multivitamins/Minerals (with ADEK, Folate, Iron)) Os-Rafael Calcium + D3 [OTC] (Antacids) D Milk of Magnesia Concentrate [OTC] (Antacids) PredniSONE (Corticosteroids (Oral)) D Os-Rafael Calcium + D3 [OTC] (Antacids) PredniSONE (Corticosteroids (Oral)) D Toprol XL (Metoprolol) Wellbutrin [DSC] (CYP2D6 Inhibitors) C Advair (CAN) (Beta2-Agonists) Toprol XL (Beta-Blockers (Beta1 Selective)) C Advair (CAN) (QTc-Prolonging Agents (Indeterminate Risk and Risk Modifying)) Lexapro (QTc-Prolonging Agents (Moderate Risk)) C Advair (CAN) (Sympathomimetics) Albuterol (Sympathomimetics) C Albuterol (Beta2-Agonists) Toprol XL (Beta-Blockers (Beta1 Selective)) C Albuterol (QTc-Prolonging Agents (Indeterminate Risk and Risk Modifying)) Lexapro (QTc-Prolonging Agents (Moderate Risk)) C Centrum (SYN) (Multivitamins/Minerals (with ADEK, Folate, Iron)) Lexapro (Agents with Antiplatelet Properties) C Lexapro (Agents with Antiplatelet Properties) Xarelto (Rivaroxaban) Depends on International labeling B Advair (CAN) (Beta2-Agonists) PredniSONE (Corticosteroids) B Albuterol (Beta2-Agonists) PredniSONE (Corticosteroids) B Lexapro (Escitalopram) Wellbutrin [DSC] (BuPROPion) Pneumococcal Vaccine HX Pneumo Vac ([id number]): No (NO) HX Pneumo Vac (Pneumovax): No (refused) Comments Regarding the Review Patient has received the influenza vaccination this season and is a candidate for the pneumococcal vaccination but refuses. GIUSEPPE BENZ Apr 21, 2018 20:04
[2018-04-22] MEDS: ALBUTEROL/IPRATROPIUM 3 ML NEB NEB SCH ×3 (05:59→17:04)
[2018-04-22] MEDS: SALMETEROL/FLUTIC 250/50 1 INH INH SCH ×2 (05:59→17:04)
[2018-04-22 08:00] VITALS: BP 125/71
[2018-04-22] MEDS: METOPROLOL SUCC XL 50 MG TABCR 50 MG TAB.ER.24H PO SCH (09:00)
[2018-04-22] MEDS: LISINOPRIL 20 MG TAB PO SCH (09:00)
[2018-04-22] MEDS ORDERED: predniSONE 10 MG TAB PO SCH (09:00)
[2018-04-22] MEDS: buPROPion IR 75 MG TAB PO SCH (09:19)
[2018-04-22] MEDS: KETOROLAC TROM 0.5% OP 3 ML BTL OS SCH ×4 (09:19→21:00)
[2018-04-22] MEDS: LACTOBACILLUS ACIDOPHILUS TAB PO SCH (09:19)
[2018-04-22] MEDS: ESCITALOPRAM OXALATE 10 MG TAB PO SCH (09:20)
[2018-04-22] MEDS: CALCIUM CARBONATE/VITAMIN D3 PO SCH (09:20)
[2018-04-22] MEDS: RIVAROXABAN 10 MG TAB PO SCH (09:20)
[2018-04-22] MEDS: MULTIVITAMINS TAB PO SCH (09:20)
--- NOTE | 2018-04-22 14:12 | OT ECF NOTE ---
Type of Note: Initial Note Primary Medical Diagnosis: Generalized weakness s/p COPD exacerbation Occupational Therapy Evaluation Date: 04/22/18 SUBJECTIVE: Prior Hospitalization: [facility] 04/13/18 thru 04/21/18 Prior Level of Function: Mod (I) for toileting and dressing. Assist for bathing and all IADLs. Ambulating with 4WW within [facility]. Prior Living Status: Assisted living Community Services: No known needs Home Accessibility: All needs on one level Equipment Owned: Rollator, Tub/shower chair Medical Complications/Past Medical History: Please refer to EMR Psychosocial Support: Supportive family Pain Scale (0-10): None reported at time of evaluation OBJECTIVE: Strength: MMT: Right Left Shoulder Flexion WFL WFL Elbow Flexion WFL WFL Wrist Extension WFL WFL Storeperson WFL WFL (5= normal, 4= good, 3= fair, 2= poor, 1= trace) ROM: Minimally limited Functional Transfer: Assistive Device: Gait belt Transfer Ability: CGA. Mod A to manage O2 tubing. Occasional Min A to manage RW. Decreased safety awareness present. With ambulation, SpO2 80% on 6L, requiring 8L to maintain SpO2 >88%. Pt tends to breathe through mouth requiring v/c's from OT. May benefit from OxyMask. Ambulation x150ft with RW and 2 standing rest breaks. ADL: Upper body dressing: Assistive device: None Upper body dressing ability: Minimum assistance Lower body dressing: Assistive device: None Lower body dressing ability: Minimum assistance Toileting: Assistive device: Toileting ability: N/T Grooming/hygiene: Assistive device: Grooming ability: N/T Bathing: Assistive device: Bathing ability: N/T Standardized Assessment: Tammy Index of Activities of Daily Livin/20 upon initial evaluation (04/22/18). ASSESSMENT: Rosamaria presents to [facility] with decreased activity tolerance and safety awareness with functional mobility/ADLs. At [facility], she was ambulating [place] distances with a 4WW, Mod (I) dressing/toileting, and assist for showers and IADLs. At baseline, she was on 2-3L O2. Currently, she requires v/c's and physical assist for ADLs and increased O2 demands with all activity. She will benefit from skilled OT services to optimize (I) and tolerance for engagement in ADLs. Problem List/Current Limitations: Decreased activity tolerance Generalized weakness Poor safety awareness Shortness of breath Short Term Goals: 1) Pt will be SBA UB/LB dressing. 2) Pt will be SBA toilet task. 3) Pt will be SBA grooming/hygiene. 4) Pt will be Min A shower task. 5) Pt Tammy Index of ADLs will improve by 2 points. Architecture Internship Goals: Return to [facility] with Patient Goals: Return home, become more mobile Rehabilitation Prognosis: Fair Barriers to Discharge: Medical history, Increased O2 demands PLAN: The patient will benefit from skilled occupational therapy services 5 times per week for 2 weeks including: Ther ex ADL training Safety training Ther act IADL training Home assessment Transfer training Adaptive equip training Bed mobility Energy conservation Thank you for this referral. If you have any questions, concerns, or comments about this report or plan, please contact me at . Irma Shin MS, OTR/L Occupational Therapist ASAD
[2018-04-22 16:30] VITALS: BP 109/48
[2018-04-23] MEDS: SALMETEROL/FLUTIC 250/50 1 INH INH SCH ×2 (05:22→17:32)
[2018-04-23] MEDS: ALBUTEROL/IPRATROPIUM 3 ML NEB NEB SCH ×3 (05:22→17:07)
[2018-04-23 08:00] VITALS: BP 141/86
[2018-04-23] MEDS: LISINOPRIL 20 MG TAB PO SCH (08:50)
[2018-04-23] MEDS: LACTOBACILLUS ACIDOPHILUS TAB PO SCH (08:55)
[2018-04-23] MEDS: MULTIVITAMINS TAB PO SCH (08:55)
[2018-04-23] MEDS: buPROPion IR 75 MG TAB PO SCH (08:55)
[2018-04-23] MEDS: CALCIUM CARBONATE/VITAMIN D3 PO SCH (08:55)
[2018-04-23] MEDS: METOPROLOL SUCC XL 50 MG TABCR 50 MG TAB.ER.24H PO SCH (08:56)
[2018-04-23] MEDS: ESCITALOPRAM OXALATE 10 MG TAB PO SCH (08:56)
[2018-04-23] MEDS: predniSONE 5 MG TAB PO SCH (08:56)
[2018-04-23] MEDS: RIVAROXABAN 10 MG TAB PO SCH (08:56)
[2018-04-23] MEDS: KETOROLAC TROM 0.5% OP 3 ML BTL OS SCH ×4 (09:00→21:00)
--- NOTE | 2018-04-23 11:32 | PT ECF NOTE ---
Type of Note: Initial Note Primary Medical Diagnosis: Concussion, COPD exacerbation Physical Therapy Evaluation Date: 04/22/18 SUBJECTIVE: Prior Hospitalization: [facility] Med/Surg 04/14-04/21 Prior Level of Function: Mod I with use of Rollator walker with functional mobility including ambulating to meals. Prior Living Status: Assisted living Community Services: No known needs Home Accessibility: All needs on one level Equipment Owned: Rollator Medical Complications/Past Medical History: See [facility] Psychosocial Support: unknown Pain Scale (0-10): denies OBJECTIVE: Bed Mobility: SBA Assistive device: Bed rail Head of bed elevated Transfers: CGA Assistive Device: Front wheeled walker Gait: CGA x 150' Assistive device: Front wheeled walker 10 meter walk test (0.6m/second cannot function independently): 10 meters in 30 seconds (0.33m/sec) ASSESSMENT: Pt presents with decreased tolerance to functional mobility compared to baseline. Pt will benefit from skilled PT in order to increase independence with functional mobility and increased activity tolerance. Problem List/Current Limitations: Decreased activity tolerance Decreased strength Decreased balance Generalized weakness Short Term Goals: 1. Mod I bed mobility. 2. Mod I transfers. 3. Mod I gait x 150' utilizing Rollator walker. 4. Pt demo safety with use of Rollator walker for seated rest breaks. [facility]pc Goals: Return to assisted living Patient Goals: return to assisted living Rehabilitation Prognosis: Fair Barriers for Discharge: COPD PLAN: The patient will benefit from skilled physical therapy services 5 times per week for 2 weeks including: Therapeutic Exercise Therapeutic Activities Transfer Training Gait Training Stair Training Manual Therapy ADL's Safety Training Neuromuscular Re-educ. Pt/Caregiver Training Bed Mobility Thank you for this referral. If you have any questions, concerns, or comments about this report or plan, please contact me at . Dulce Vasquez, PT, DPT, GCS MTDD
--- NOTE | 2018-04-23 14:05 | Medical Nutrition Therapy ---
Nutrition Anthropometrics Height (Inches): 62.00 Height (Calculated Centimeters: 157.792518 Weight (Pounds): 98 Weight (Calculated Kilograms): 44.452 BMI: 17.9 Pedro Nutrition Score: Pedro Nutrition Risk Score: Dietary Referral Nutrition Risk Factors: Diff. Swallowing Nutrition Risk Comment: Physical Findings Physical Appearance: Underweight BMI<19 Skin Appearance Skin Appearance: Edema Edema Location Modifier: Edema Location: Type of Edema: Degree of Edema: Gastrointestinal Symptoms GI Symtoms: Diarrhea Tube Present: Bowel Sounds: Recent Bowel Pattern: Stool Characteristics: Nutritional Diagnosis Nutritional Risk Acuity 2: Swallowing Problem Nutritional Risk Acuity 3: Nutrit Anemia, COPD Unstable Nutritional Risk Acuity 4: Good Appetite, Modified Diet Past Medical History: HTN, dementia, tremor, emphysema Nutritional Acuity: 2-Moderate Nutrition Diagnosis: Increased Nutrient Needs Nutrition Etiology: Physiological Causes Nutrition Problem/Etiology/Sym: Increased nutrient needs, as related to physiological causes, as evidenced by underweight BMI of 17.9 and a weight of 98lbs. Energy Requirement: 1200 ((0406-2911) [place], 1.3) Protein Requirement: 53 (1.2/kg) Fluid Requirement: 1320 (30ml/kg) Diet Type: Dysphagia Stage 2 Nutrition Intervention: Incr diet as tolerated Diet Comment To RSA: RECOMMEND NUTR SUPPLEMENT Nutrition Monitoring & Eval RD Patient Assessment Time: [address] Assessment Type: RD Assessment Patient Nutrition Acuity: 2-Moderate Follow Up Date: Apr 28, 2018 Nutritional Comment: 04/22. In house transfer from [facility] floor. Pt admitted after fall, being treated for COPD exacerbation, concussion, acute anemia blood loss, and weakness. [facility] determined pt be placed on Dysphagia 2 diet, recommending soft moist foods. Pt has difficulty with solids. Pt is 98lbs, and has an underweight BMI of 17.9. Recommend 7577-2447 kcal and 53g protein each day. Recommend nutrition supplement to increase intake of kcal and protein to meet pt needs. Will cont to monitor. KARRIE ROBBINSA Apr 22, 2018 08:19
[2018-04-23 19:15] VITALS: BP 143/66
[2018-04-24] MEDS: ACETAMINOPHEN 325 MG TAB PO PRN ×2 (05:01→20:23)
[2018-04-24] MEDS: ALBUTEROL/IPRATROPIUM 3 ML NEB NEB SCH ×3 (05:20→17:15)
[2018-04-24] MEDS: SALMETEROL/FLUTIC 250/50 1 INH INH SCH ×2 (05:21→17:27)
[2018-04-24 07:25] VITALS: BP 132/66
[2018-04-24] MEDS: buPROPion IR 75 MG TAB PO SCH (08:56)
[2018-04-24] MEDS: MULTIVITAMINS TAB PO SCH (08:57)
[2018-04-24] MEDS: ESCITALOPRAM OXALATE 10 MG TAB PO SCH (08:57)
[2018-04-24] MEDS: LISINOPRIL 20 MG TAB PO SCH (08:57)
[2018-04-24] MEDS: LACTOBACILLUS ACIDOPHILUS TAB PO SCH (08:58)
[2018-04-24] MEDS: predniSONE 5 MG TAB PO SCH (08:58)
[2018-04-24] MEDS: CALCIUM CARBONATE/VITAMIN D3 PO SCH (08:58)
[2018-04-24] MEDS: METOPROLOL SUCC XL 50 MG TABCR 50 MG TAB.ER.24H PO SCH (08:58)
[2018-04-24] MEDS: RIVAROXABAN 10 MG TAB PO SCH (08:58)
[2018-04-24] MEDS: KETOROLAC TROM 0.5% OP 3 ML BTL OS SCH ×4 (08:59→20:23)
--- NOTE | 2018-04-24 12:32 | SLP BEDSIDE SWALLOW EVALUATION ---
CLINICAL SWALLOW ASSESSMENT SUMMARY Ordering Provider: Juani Ugalde MD Clinician: Miya Shin MS, CCC-INSTRUCTOR TRAINER CANINE SERVICE Type of Assessment: Bedside Dysphagia Evaluation Patient: Rosamaria Jo : 1940, 77yrs Evaluation Date: 04/24/2018 BACKGROUND The patient is a 77yo female [facility] admitted to [facility] on 04/13/18 after experiencing an unwitnessed fall with loss of consciousness at [facility]. She acquired an inch long laceration on the back of her scalp, and appeared to present with a concussion. After admission, the pt experienced a suspected aspiration event during her evening meal on 04/17/18. This occurred while consuming a bite of hamburger. Pt w/ history of COPD and variable O2 requirements since admission, ranging from 2.5 up to 8.0L via NC. A swallow evaluation was ordered following suspected aspiration even, and a dysphagia diet/thin liquids was recommended. The pt has now transferred to the extended care facility for further rehabilitation prior to anticipated discharge to [facility] ([facility]). Primary Medical Diagnosis: COPD Medical History: concussion, weakness, depression, TIAs, dementia, HTN, chronic tremor Pain Scale (0-10): Patient w/ no reports of pain. LOC / Participation: alert, cooperative Follows instructions: requires intermittent repetition and direct modeling to execute commands Orientation: oriented to person, place, time of day, medical etiology/pathology. Disoriented to date. DYSPHAGIA ASSESSMENT Sialorrhea: No Xerostomia: Yes Supplemental Oxygen Use: Yes. 2.5L O2 via NC Respiratory Rate: 18-20 COPD Dx: Yes Pain with Swallow: Denies. Endorses some globus sensation. Oral Structure and Function: Oromotor exam was remarkable for lingual and mandibular weakness against resistance. Lingual, labial, and mandibular tremors/shakiness observed at rest. Lingual deviation to the R noted upon protrusion. Reduced lingual range of motion also observed. Pt with upper dentures, natural bottom teeth. Hyolaryngeal elevation and excursion mildly reduced to palpation, but WFL relative to age and gender. Administered PO trials of thin liquids via cup and straw, pureed solids, and soft solids. Oromotor weakness resulted in oral phase impairments characterized by prolonged mastication, oral scatter, post-swallow oral residue, and execution of multiple swallows to clear oral cavity (piecemeal deglutition). Lingual pumping also suspected . PO trials were successfully tolerated w/ out overt s/sx of aspiration. However, pt w/ exhibited increased shortness of breath during mastication of solid textures. Pt was encouraged to decrease bolus sizes, reduce rate of intake, and take regular rest breaks during PO intake 2/2 elevated O2 requirements. At this time, soft, moist textures (dysphagia II) continue to be recommended to improve swallow efficiency and safety. Pt appears appropriate for tolerance of thin liquids. Due to observable oral and suspected pharyngeal dysphagia, a modified barium swallow study is recommended to objectively analyze pharyngeal anatomy and physiology and to rule out possible aspiration. Discussed recommendations and benefits with patient. However, she politely declined MBSS. Agreeable to participating in ST interventions during stay at [facility]. ST ASSESSMENT SUMMARY Aspiration Risk: Aspiration Risk: mild to moderately increased 2/2 age, generalized weakness, compromised respiratory status, hx of COPD, oral weakness. Speech Therapy Need ST will continue to provide patient/caregiver education re: safe swallow strategies to minimize risk for aspiration 2/[address] will provide pt instruction in exercises to improve strength and efficiency of swallow. ST will continue to analyze cognitive communicative status as warranted to make appropriate recommendations for d/c. RECOMMENDATIONS 1. Diet: Dysphagia II (mechanically altered), thin liquids. 2. Medications: Whole, with thin liquids. One at a time. 3. Compensatory Techniques: regular oral hygiene, upright positioning during PO intake, cues to consume small bites/sips, one bite/sip at a time, encourage rest breaks for respiration if SOB is observed. 4. Supervision with meals/snacks: Not warranted. Offer intermittent reminders for swallow safety and continue to monitor diet tolerance. 5. Complete further cognitive communicative assessment as appropriate. PLAN OF CARE Short Term Goals 1. Patient will receive education regarding safe swallow precautions and will provide verbal/visual demonstration of comprehension. 2. The patient will safely and efficiently tolerate regular diet, thin liquids, and whole medications with independent implementation of safe swallow strategies. Discharge Recommendation: [facility] with ST services. (discussed ST with pt; however, she appeared somewhat resistant. Will continue to educate). Rehabilitation Prognosis: Good. Motivated to succeed. Motivated to discharge. Thank you for this referral. Miya Shin M.S., [facility]-INSTRUCTOR TRAINER CANINE SERVICE Speech Therapist [*] AASD
[2018-04-24 17:30] VITALS: BP 137/74
[2018-04-25] MEDS: SALMETEROL/FLUTIC 250/50 1 INH INH SCH ×2 (05:41→18:04)
[2018-04-25] MEDS: ALBUTEROL/IPRATROPIUM 3 ML NEB NEB SCH ×3 (05:41→18:04)
[2018-04-25 07:39] VITALS: BP 129/78
[2018-04-25] MEDS: METOPROLOL SUCC XL 50 MG TABCR 50 MG TAB.ER.24H PO SCH (09:00)
[2018-04-25] MEDS: LISINOPRIL 20 MG TAB PO SCH (09:00)
[2018-04-25] MEDS: KETOROLAC TROM 0.5% OP 3 ML BTL OS SCH ×4 (09:05→21:05)
[2018-04-25] MEDS: ESCITALOPRAM OXALATE 10 MG TAB PO SCH (09:05)
[2018-04-25] MEDS: CALCIUM CARBONATE/VITAMIN D3 PO SCH (09:05)
[2018-04-25] MEDS: LACTOBACILLUS ACIDOPHILUS TAB PO SCH (09:05)
[2018-04-25] MEDS: predniSONE 5 MG TAB PO SCH (09:06)
[2018-04-25] MEDS: MULTIVITAMINS TAB PO SCH (09:06)
[2018-04-25] MEDS: buPROPion IR 75 MG TAB PO SCH (09:06)
[2018-04-25] MEDS: RIVAROXABAN 10 MG TAB PO SCH (09:07)
[2018-04-25 15:13] VITALS: BP 129/73
[2018-04-25] MEDS: ACETAMINOPHEN 325 MG TAB PO PRN (21:08)
[2018-04-26] MEDS: SALMETEROL/FLUTIC 250/50 1 INH INH SCH ×2 (05:27→17:16)
[2018-04-26] MEDS: ALBUTEROL/IPRATROPIUM 3 ML NEB NEB SCH ×3 (05:27→17:10)
[2018-04-26 07:32] VITALS: BP 134/75
[2018-04-26] MEDS: CALCIUM CARBONATE/VITAMIN D3 PO SCH (08:45)
[2018-04-26] MEDS: KETOROLAC TROM 0.5% OP 3 ML BTL OS SCH ×4 (08:45→20:50)
[2018-04-26] MEDS: RIVAROXABAN 10 MG TAB PO SCH (08:47)
[2018-04-26] MEDS: LACTOBACILLUS ACIDOPHILUS TAB PO SCH (08:47)
[2018-04-26] MEDS: ESCITALOPRAM OXALATE 10 MG TAB PO SCH (08:47)
[2018-04-26] MEDS: predniSONE 5 MG TAB PO SCH (08:47)
[2018-04-26] MEDS: MULTIVITAMINS TAB PO SCH (08:48)
[2018-04-26] MEDS: LISINOPRIL 20 MG TAB PO SCH (08:48)
[2018-04-26] MEDS: METOPROLOL SUCC XL 50 MG TABCR 50 MG TAB.ER.24H PO SCH (08:48)
[2018-04-26] MEDS: buPROPion IR 75 MG TAB PO SCH (08:48)
[2018-04-26 16:40] VITALS: BP 121/64
[2018-04-26] MEDS: ACETAMINOPHEN 325 MG TAB PO PRN (20:50)
[2018-04-27] MEDS: SALMETEROL/FLUTIC 250/50 1 INH INH SCH ×2 (05:29→17:08)
[2018-04-27] MEDS: ALBUTEROL/IPRATROPIUM 3 ML NEB NEB SCH ×3 (05:29→17:08)
[2018-04-27 07:30] VITALS: BP 155/83
[2018-04-27] MEDS: CALCIUM CARBONATE/VITAMIN D3 PO SCH (08:50)
[2018-04-27] MEDS: RIVAROXABAN 10 MG TAB PO SCH (08:51)
[2018-04-27] MEDS: buPROPion IR 75 MG TAB PO SCH (08:51)
[2018-04-27] MEDS: LACTOBACILLUS ACIDOPHILUS TAB PO SCH (08:51)
[2018-04-27] MEDS: ESCITALOPRAM OXALATE 10 MG TAB PO SCH (08:51)
[2018-04-27] MEDS: MULTIVITAMINS TAB PO SCH (08:51)
[2018-04-27] MEDS: predniSONE 5 MG TAB PO SCH (08:51)
[2018-04-27] MEDS: METOPROLOL SUCC XL 50 MG TABCR 50 MG TAB.ER.24H PO SCH (08:52)
[2018-04-27] MEDS: LISINOPRIL 20 MG TAB PO SCH (08:52)
[2018-04-27] MEDS: KETOROLAC TROM 0.5% OP 3 ML BTL OS SCH ×4 (08:56→20:30)
[2018-04-27] MEDS ORDERED: RIVA15TA PO (09:34)
[2018-04-27] MEDS ORDERED: METO50TA19 PO (09:34)
[2018-04-27] MEDS ORDERED: BISACODYL 10 MG SUPP PR PRN (10:45)
[2018-04-27] MEDS: POLYETHYLENE GLYCOL 17 GM PKT PO SCH (10:57)
[2018-04-27] MEDS: DOCUSATE SODIUM 100 MG CAP PO SCH ×2 (10:57→20:29)
--- NOTE | 2018-04-27 15:51 | Medical Nutrition Therapy ---
Nutrition Anthropometrics Height (Inches): 62.00 Height (Calculated Centimeters: 157.617996 Weight (Pounds): 98 Weight (Calculated Kilograms): 44.452 BMI: 17.9 Pedro Nutrition Score: Probably Inadequate Pedro Nutrition Risk Score: 16 Dietary Referral Nutrition Risk Factors: Diff. Swallowing Nutrition Risk Comment: Physical Findings Physical Appearance: Underweight BMI<19 Skin Appearance Skin Appearance: Edema Edema Location Modifier: Edema Location: Type of Edema: Degree of Edema: Gastrointestinal Symptoms GI Symtoms: Diarrhea Tube Present: Bowel Sounds: Recent Bowel Pattern: Stool Characteristics: Nutritional Diagnosis Nutritional Risk Acuity 2: Swallowing Problem Nutritional Risk Acuity 3: Fair Appetite, Nutrit Anemia, COPD Unstable Nutritional Risk Acuity 4: Modified Diet Past Medical History: HTN, dementia, tremor, emphysema Nutritional Acuity: 2-Moderate Nutrition Diagnosis: Increased Nutrient Needs Nutrition Etiology: Physiological Causes Nutrition Problem/Etiology/Sym: Increased nutrient needs, as related to physiological causes, as evidenced by underweight BMI of 17.9 and a weight of 98lbs. Energy Requirement: 1200 ((4047-6772) [place], 1.3) Protein Requirement: 53 (1.2/kg) Fluid Requirement: 1320 (30ml/kg) Diet Type: Dysphagia Stage 2 Nutrition Intervention: Cont diet as ordered, HS snack, Between meal supplement Food Likes: grilled chicken covered in white gravy Diet Comment To RSA: OFFER NUTR SUPPLEMENT Nutrition Monitoring & Eval Nutrition Goals: Eat 75-100% Meal Nutrition Follow-Up: Fair Intake RD Patient Assessment Time: [address] Assessment Type: RD Re-Assessment Patient Nutrition Acuity: 2-Moderate Follow Up Date: May 05, 2018 Nutritional Comment: 04/22. In house transfer from [facility] floor. Pt admitted after fall, being treated for COPD exacerbation, concussion, acute anemia blood loss, and weakness. Pt completed swallowing evaluation while on [facility] foor, which determined pt be placed on Dysphagia 2 diet, recommending soft moist foods. Pt has difficulty with solids. Pt is 98lbs, and has an underweight BMI of 17.9. Recommend 0058-8125 kcal and 53g protein each day. Recommend nutrition supplement to increase intake of kcal and protein to meet pt needs. Will cont to monitor. MR 10/1 Pt was seen by [facility] on 04/24. Recommend cont dysphagia 2 qwith thin liquids. Intake average 77% of ususally small portions. Wt on admittance to [facility] was 98# compared to 98# on medunit on 04/20. 4% wt gain may be r/t fluids or difference in scale. No new labs. Will cont to monitor and encourage intake. ZAK CASILLAS Apr 27, 2018 15:51
[2018-04-27 16:55] VITALS: BP 141/77
[2018-04-27] MEDS: ACETAMINOPHEN 325 MG TAB PO PRN (20:29)
[2018-04-28] MEDS: SALMETEROL/FLUTIC 250/50 1 INH INH SCH ×2 (05:28→16:57)
[2018-04-28] MEDS: ALBUTEROL/IPRATROPIUM 3 ML NEB NEB SCH ×3 (05:28→16:57)
[2018-04-28 08:00] VITALS: BP 128/66
[2018-04-28] MEDS: KETOROLAC TROM 0.5% OP 3 ML BTL OS SCH ×4 (09:00→20:17)
[2018-04-28] MEDS: LISINOPRIL 20 MG TAB PO SCH (09:00)
[2018-04-28] MEDS: METOPROLOL SUCC XL 50 MG TABCR 50 MG TAB.ER.24H PO SCH (09:00)
[2018-04-28] MEDS: MULTIVITAMINS TAB PO SCH (09:32)
[2018-04-28] MEDS: buPROPion IR 75 MG TAB PO SCH (09:32)
[2018-04-28] MEDS: ESCITALOPRAM OXALATE 10 MG TAB PO SCH (09:32)
[2018-04-28] MEDS: CALCIUM CARBONATE/VITAMIN D3 PO SCH (09:32)
[2018-04-28] MEDS: DOCUSATE SODIUM 100 MG CAP PO SCH ×2 (09:32→20:16)
[2018-04-28] MEDS: RIVAROXABAN 10 MG TAB PO SCH (09:32)
[2018-04-28] MEDS: POLYETHYLENE GLYCOL 17 GM PKT PO SCH (09:32)
[2018-04-28] MEDS: predniSONE 5 MG TAB PO SCH (09:32)
[2018-04-28] MEDS: LACTOBACILLUS ACIDOPHILUS TAB PO SCH (09:32)
[2018-04-28 15:50] VITALS: BP 118/67
[2018-04-28] MEDS: ACETAMINOPHEN 325 MG TAB PO PRN (20:19)
[2018-04-29] MEDS: ALBUTEROL/IPRATROPIUM 3 ML NEB NEB SCH ×2 (05:04→12:18)
[2018-04-29] MEDS: SALMETEROL/FLUTIC 250/50 1 INH INH SCH (05:04)
[2018-04-29 07:50] VITALS: BP 140/71
[2018-04-29] MEDS: LISINOPRIL 20 MG TAB PO SCH (09:00)
[2018-04-29] MEDS: KETOROLAC TROM 0.5% OP 3 ML BTL OS SCH ×2 (09:00→12:54)
[2018-04-29] MEDS: buPROPion IR 75 MG TAB PO SCH (09:14)
[2018-04-29] MEDS: MULTIVITAMINS TAB PO SCH (09:14)
[2018-04-29] MEDS: LACTOBACILLUS ACIDOPHILUS TAB PO SCH (09:14)
[2018-04-29] MEDS: POLYETHYLENE GLYCOL 17 GM PKT PO SCH (09:14)
[2018-04-29] MEDS: predniSONE 5 MG TAB PO SCH (09:15)
[2018-04-29] MEDS: CALCIUM CARBONATE/VITAMIN D3 PO SCH (09:15)
[2018-04-29] MEDS: RIVAROXABAN 10 MG TAB PO SCH (09:15)
[2018-04-29] MEDS: DOCUSATE SODIUM 100 MG CAP PO SCH (09:15)
[2018-04-29] MEDS: METOPROLOL SUCC XL 50 MG TABCR 50 MG TAB.ER.24H PO SCH (09:15)
[2018-04-29] MEDS: ESCITALOPRAM OXALATE 10 MG TAB PO SCH (09:15)
[2018-04-29] MEDS ORDERED: KETO5DRO50 OS (13:57)
--- NOTE | 2018-04-29 14:08 | Hospitalist Depart ---
Discharge Summary Reason for Hosp/Final Diag: (1) COPD exacerbation Status: Acute Hospital Course & Plan: She had intermittent increased oxygen demands. Her chest x-ray and CT scan showed changes consistent with COPD. She was given IV steroids 04.15. She was then converted to prednisone and started scheduled nebulizers. Steroids were tapered. Her Advair was increased to BID dosing for COPD. Echo and BNP did not point to heart failure as cause of SOB. (2) Concussion Status: Acute Hospital Course & Plan: She appears to have had a concussion in a fall at [facility]. She had nausea, which resolved. A CT scan of the head was negative for intracranial injury. Ridott from her scalp laceration were removed at day 12. (3) Acute blood loss anemia Status: Acute Hospital Course & Plan: Her hemoglobin dropped significantly to 7.0 from 12.4. She was transfused 2 units on 04/13. Her Hgb increased appropriately and remained stable. (4) Weakness Status: Acute Hospital Course & Plan: The patient was transferred to [facility] to work with PT and OT. (5) HTN (hypertension) Status: Chronic Hospital Course & Plan: She was continued on chronic treatment with Metoprolol and Lisinopril. These had appropriated hold parameters. BPs were stable. (6) Depression Status: Chronic Hospital Course & Plan: She was continued on chronic treatment with escitalopram. (7) History of TIAs Status: Resolved Hospital Course & Plan: She was continued on chronic treatment with Xarelto. (8) Dementia Status: Chronic Hospital Course & Plan: Chronic, stable. (9) Tremor Status: Chronic Hospital Course & Plan: Chronic, stable. Departure Weight (Pounds): 98 Weight (Ounces): 8.0 Condition: Improved Discharge: Assisted Living PT/OT Follow Up For: PT Evaluation and Treat, ST Evaluation and Treat, OT Evaluation and Treat Discharge Code Status: DNR, DNI Time Spent: < 30 min Discharge Instructions Home Meds Active Scripts Metoprolol Succinate (METOPROLOL SUCCINATE) 50 Mg Tab.er.24h, 1 TAB PO HS for 90 Days, #90 TAB 4 Refills Prov:RUDDY DAVID MD 04/29/18 Rivaroxaban 15 Mg (XARELTO 15 MG) 15 Mg Tablet, 15 MG PO DAILY for 90 Days, #90 TAB 1 Refill Prov:MEGHA HEART MD 04/27/18 Wheat Dextrin (BENEFIBER) 1 Each Powd.pack, 1 EACH PO QDAY for 90 Days, #90 PACKET Prov:MEGHA HEART MD 04/07/18 Bupropion Hcl (BUPROPION HCL) 75 Mg Tablet, 1 TAB PO QDAY for 90 Days, #90 TAB 1 Refill Prov:MEGHA HEART MD 04/06/18 Lisinopril (LISINOPRIL) 20 Mg Tablet, 1 TAB PO QDAY for 90 Days, #90 TAB 4 Refills Prov:MEGHA HEART MD 04/06/18 Escitalopram Oxalate (ESCITALOPRAM OXALATE) 10 Mg Tablet, 10 MG PO QDAY for 90 Days, #90 TAB 4 Refills Prov:MEGHA HEART MD 12/30/17 Reported Medications Calcium Carbonate/Mag Hydrox (ANTACID EXTRA STRNGTH TAB CHEW) 1 Each Tab.chew, 2 TAB PO Q2H PRN for INDIGESTION, TAB.CHEW Do not give more than 10 tablets in 24 hours. 04/29/18 Polyvinyl Alcohol/Povidone (ARTIFICIAL TEARS DROPS) 15 Ml Drops, 1 GTT OU TID 04/29/18 Ketorolac Tromethamine (ACULAR) 5 Ml Drops, 1 DROP OS QID 04/29/18 Guaifenesin/Dextromethorphan (Robitussin Cough-Chest Dm Liq) Unknown Strength Liquid, 5 ML PO Q4-6H PRN for COUGH Robitussin-DM or generic equivalent. Take 5ml every 4-6 hours PRN for complaints of cough 04/13/18 Mag Hydrox/Aluminum Hyd/Simeth (Maalox Advanced Suspension) Unknown Strength Oral.susp, PO PRN for GAS/HEARTBURN Riopan, Maalox, or generic equivalent. 15 ml every 4 hours PRN for complaints of gastric distress. 04/13/18 L.acidoph & Paracasei,B.lactis (Probiotic) 1 Each Capsule, PO QDAY 04/13/18 Oxygen (OXYGEN) Inha, 4 L INH, L continuous. Titrate to keep O2 sats between 88-95% 04/13/18 Magnesium Hydroxide (MILK OF MAGNESIA) 400 Mg/5 Ml Oral.susp, 15-30 ML PO QDAY PRN for CONSTIPATION, BOTTLE 04/13/18 Aspirin (ASPIRIN) 325 Mg Tablet, 325 MG PO ONCE PRN for chest pain, TAB 04/13/18 Acetaminophen (TYLENOL) 325 Mg Tablet, 325-650 MG PO Q4H PRN for PAIN, TAB 04/13/18 Lactose-Reduced Food (Ensure Original) 237 Ml Liquid, 1-2 UNITS PO DAILY PRN for weight loss One to two cans po daily prn weight loss or hunger. 12/30/17 Fluticasone/Salmeterol (ADVAIR 250-50 DISKUS) 1 Each Disk.w.dev, 1 PUFF IH HS 12/30/17 Calcium Carb/Vit D3/Minerals (CALCIUM +D & MINERALS CHEW TAB) 1 Each Tab.chew, 1 EACH PO DAILY, TAB.CHEW 01/12/16 Multivits-Min/Iron/FA/Lutein (Centrum Silver Women Tablet) 1 Each Tablet, 1 TAB PO DAILY 01/12/16 Discontinued Reported Medications Prednisolone Acetate (PRED FORTE) 1 Ml Drops.susp, 0 OS QID starting 04/03/18. instill one drop into left eye four times a day for two weeks starting after surgery 04/13/18 Ofloxacin (Ofloxacin) Unknown Strength Drops, OS QID Starting 04/03/18. instill one drop into left eye four times daily for two weeks following surgery 04/13/18 [ketorolac ] Unknown Strength No Conflict Check, OS QID Starting 04/03/18- instill 1 eye drop into left eye QID for 6 weeks following surgery 04/13/18 Ca Carbonate/Vitamin D3/Vit K (CALCIUM + D SOFT CHEWABLE TAB) 1 Each Tab.chew, 1 TAB.CHEW PO DAILY, TAB.CHEW 12/30/17 Metoprolol Succinate (METOPROLOL SUCCINATE) 50 Mg Tab.er.24h, 1 TAB PO HS, TAB 04/13/18 Follow up Referrals: Internal Medicine - In Two Weeks @ [facility]-Primary with MEGHA HEART MD Diet: Regular Activity: As Tolerated Copies to: MEGHA HEART MD ; Venous Thromboembolism Antithrombotics Is Pt On Any Antithrombotics?: Yes RUDDY DAVID MD Apr 29, 2018 14:08
[2018-04-29] MEDS ORDERED: METO50TA19 PO (14:17)
[2018-04-29] MEDS ORDERED: POLY15DR54 OU (14:17)
[2018-04-29] MEDS ORDERED: CALC1TAB31 PO (14:28)
[2018-04-29] MEDS ORDERED: IPRA3AMP10 NEB (14:34)
[2018-04-29] MEDS ORDERED: DOCU-202 PO (14:34)
[2018-04-29] MEDS ORDERED: FLUT1DIS28 INH (14:34)
--- NOTE | 2018-04-29 16:47 | OT ECF NOTE ---
Type of Note: Discharge Note Primary Medical Diagnosis: Generalized weakness s/p COPD exacerbation Occupational Therapy Evaluation Date: 04/22/18 SUBJECTIVE: Prior Hospitalization: H 04/13/18 thru 04/21/18 Prior Level of Function: Mod (I) for toileting and dressing. Assist for bathing and all IADLs. Ambulating with 4WW within [facility]. Prior Living Status: Assisted living Community Services: No known needs Home Accessibility: All needs on one level Equipment Owned: Rollator, Tub/shower chair Medical Complications/Past Medical History: Please refer to EMR Psychosocial Support: Supportive family Pain Scale (0-10): None reported at time of evaluation OBJECTIVE: Strength: MMT: Right Left Shoulder Flexion WFL WFL Elbow Flexion WFL WFL Wrist Extension WFL WFL Frame Table Operator WFL WFL (5= normal, 4= good, 3= fair, 2= poor, 1= trace) ROM: Minimally limited Functional Transfer: Assistive Device: Gait belt Transfer Ability: SBA with 4WW. Occasional v/c's for O2 tubing management and safety with 4WW. ADL: Upper body dressing: Assistive device: None Upper body dressing ability: Independent Lower body dressing: Assistive device: Daughter ordering elastic shoe laces Lower body dressing ability: Minimum assistance Toileting: Assistive device: Grab rails Toileting ability: Modified Independent Grooming/hygiene: Assistive device: Standing Grooming ability: Independent Bathing: Assistive device: Assist at [facility]. Bathing ability: N/T Standardized Assessment: Tammy Index of Activities of Daily Livin/20 upon initial evaluation (04/22/18). 1720 upon discharge (04/29/18). ASSESSMENT: Rosamaria presented to [facility] with decreased activity tolerance and safety awareness with functional mobility/ADLs. At [facility], she was ambulating [facility] distances with a 4WW, Mod (I) dressing/toileting, and assist for showers and IADLs. She has met all skilled OT goals. Problem List/Current Limitations: Decreased activity tolerance Generalized weakness Poor safety awareness Shortness of breath Short Term Goals: 1) Pt will be SBA UB/LB dressing. GOAL MET 2) Pt will be SBA toilet task. GOAL MET 3) Pt will be SBA grooming/hygiene. GOAL MET 4) Pt will be Min A shower task. GOAL MET 5) Pt Tammy Index of ADLs will improve by 2 points. GOAL MET Half-Way Goals: Return to spring [facility] with HH Patient Goals: Return home, become more mobile Rehabilitation Prognosis: Fair Barriers to Discharge: Medical history, Increased O2 demands PLAN: The patient will discharge home with PT/OT/Speech and continued assist at [facility]. Thank you for this referral. If you have any questions, concerns, or comments about this report or plan, please contact me at . Irma Shin MS, OTR/L Occupational Therapist ASAD
== END 2018-04-29 16:30 | DRG 192 ==
LOC: ECF 16:48
PROVIDERS: ADMIT Internal Medicine; ATTEND Internal Medicine
DX: J44.1 Chronic obstructive pulmonary disease with (acute) exacerbation (principal); I10 Essential (primary) hypertension; F32.9 Major depressive disorder, single episode, unspecified; F03.90 Unspecified dementia, unspecified severity, without behavioral disturbance, psychotic disturbance, mood disturbance, and anxiety; R25.1 Tremor, unspecified; Z86.73 Personal history of transient ischemic attack (TIA), and cerebral infarction without residual deficits; Z79.01 Long term (current) use of anticoagulants; R53.1 Weakness
CPT/HCPCS: 92523; 94640; 97162; 97166; J7512

== ENCOUNTER 2018-05-29 03:32 | Day surgery (SDC) | payer MEDICARE ==
[2017-10-05 08:54] VITALS: Ht 158.8 cm; Wt 47.6 kg
[~2018-05-29] VITALS: Ht 158.8 cm; Wt 47.6 kg
[~2018-05-29 03:32] MED LIST changes: +ACET-2146 PO; +CALC1TAB31 PO; +DOCU-202 PO; +FLUT1DIS28 INH; +IPRA3AMP10 NEB; +KETO5DRO50 OS; +POLY15DR54 OU
[2018-05-29] MEDS ORDERED: NORMOSOL R SOLN(*) 1000 ML BAG 1,000 ML IV PRN (14:30)
[2018-05-29] MEDS ORDERED: OPHTHALMIC PROCEDURE 2 OD PRN ×2 (14:30)
[2018-05-29] MEDS ORDERED: acetaZOLAMIDE 500 MG CAPCR PO ONE (14:30)
[2018-05-29] MEDS ORDERED: LIDOCAINE/SOD BICARB 8.4% SYR ID ONE (14:30)
[2018-05-29] MEDS ORDERED: OPHTHALMIC PROCEDURE 1 OD PRN (14:30)
[2018-05-29] MEDS ORDERED: PROPOFOL EMUL(*) 10MG/ML 20 ML 20 ML ONE (15:26)
[2018-05-29 15:39] VITALS: BP 148/73
[2018-05-29 16:21] VITALS: BP 129/68
[2018-05-29 16:22] VITALS: BP 129/68
--- NOTE | 2018-05-29 18:21 | FOSTER LEFT EYE CATARACT ---
EVENT DATE: May 29, 2018 SURGEON: Osmar Jones MD ANESTHESIOLOGIST: Hugo Agustin MD ANESTHESIA: MAC PREOPERATIVE DIAGNOSIS Cataract, right eye. POSTOPERATIVE DIAGNOSIS Cataract, right eye. PROCEDURE Phacoemulsification of cataractous lens with implantation of an intraocular lens, right eye. DESCRIPTION OF PROCEDURE The risks, benefits, and alternatives were carefully discussed with the patient, and preoperative consent was obtained. The patient was brought to the operating room after receiving topical anesthetic. The patient was prepped and draped using sterile technique in the usual manner. A stab incision was made, and the chamber was inflated with preservative-free lidocaine. DuoVisc was injected to inflate the chamber. A 2.2 mm blade was used to enter the anterior chamber. Utrata forceps were used to tear a circular capsulorrhexis. BSS was used to hydrodissect the nucleus. Phaco tip was introduced, and the nucleus was chopped into four quadrants. Each quadrant was removed. The I/A tip was used to remove the cortex. The bag was inflated with ProVisc. The intraocular lens was injected into the capsular bag. The I/A tip was used to remove the ProVisc. The wound was found to be watertight. Vigamox, Nevanac, and Maxitrol ointment were placed in the patient's eye. The patient's eye was patched, and the patient was taken to the recovery room in stable condition. The patient was examined in the recovery room and found to be stable prior to release from the hospital. ASAD
[2018-06-04] MEDS ORDERED: IPRA3AMP10 NEB (12:17)
[2018-06-09] MEDS ORDERED: OFLO5DRO41 OD (11:35)
[2018-06-09] MEDS ORDERED: PRED5DRO3 OD (11:35)
[2018-06-09] MEDS ORDERED: ACET-2146 PO ×2 (18:01→18:03)
[2018-06-10] MEDS ORDERED: IPRA3AMP10 NEB (08:08)
== END 2018-05-29 16:50 ==
LOC: OR 03:32
PROVIDERS: ATTEND Ophthalmology
DX: H25.11 Age-related nuclear cataract, right eye (principal)
CPT/HCPCS: 66984; J2704; V2632

== ENCOUNTER → 2018-08-05 | Outpatient (CLI) | payer MEDICARE ==
[2017-10-05 08:54] VITALS: BMI 18.6
[~2018-08-05] MED LIST changes: -CALC1TAB31 PO; +CALC1TAB79 PO; +LORA-1455 PO; +OFLO5DRO41 OD; +PRED5DRO3 OD
--- NOTE | 2018-08-05 13:41 | RADIOLOGY IMAGING REPORT ---
FACILITY: [facility] [place] PATIENT NAME: Rosamaria Jo : 1940 MR: [id number] V: [id number] EXAM DATE: ORDERING PHYSICIAN: MEGHA HEART TECHNOLOGIST: Location: [facility] [place] Patient: Rosamaria Jo : 1940 Visit/Account:[id number] Date of Sevice: 08/05/2018 Exam type: CHEST PA LAT History: increased sob Comparison: April 18, 2018 and October 04, 2017. Findings: Again noted is parenchymal scarring in the right midlung field, chronic peribronchial thickening and chronic hyperinflation of the lungs. There is no evidence of acute-appearing pulmonary consolidation pleural effusions or overt pulmonary edema.. The cardiac swelling is normal in size. There is scol iosis of the thoracic spine with spondylotic changes and osteopenia IMPRESSION: 1. Hyperinflation lung sommers, chronic peribronchial thickening and chronic scarring the right midlu ng field remain unchanged Report Dictated By: Katie Rockwell MD at 08/05/2018 1:27 PM Report E-Signed By: Katie Rockwell MD at 08/05/2018 1:36 PM WSN:[email or web address]
== END ==
LOC: RAD 11:30
PROVIDERS: ATTEND Family Medicine
DX: R06.02 Shortness of breath (principal); M85.80 Other specified disorders of bone density and structure, unspecified site
CPT/HCPCS: 71046

== ENCOUNTER → 2019-01-26 | Outpatient (REF) | payer MEDICARE ==
[2017-10-05 08:54] VITALS: BMI 18.6
[~2019-01-26] MED LIST changes: +DOCU-416 PO
== END ==
LOC: ZZSPRING 08:31
PROVIDERS: ATTEND Family Medicine
DX: I10 Essential (primary) hypertension (principal)
CPT/HCPCS: 36415; 82040; 82247; 82310; 82374; 82435; 82565; 82947; 84075; 84132; 84155; 84295; 84443; 84450; 84460; 84520; 85027